=== PATIENT | female | born 1945 | race Caucasian/White ===

== ENCOUNTER 2018-09-14 18:57 | Inpatient (IN) ==
[2018-09-14] MEDS ORDERED: ONDANSETRON INJ 2 MG/ML 2 ML VIAL IV STA (19:11)
[2018-09-14] MEDS ORDERED: MoRPHine SULFATE 2 MG/ML CARP IV STA (19:11)
[2018-09-14] MEDS ORDERED: SODIUM CHLORIDE 0.9% 1000ML 1,000 ML IV SCH ×2 (19:15→20:15)
--- NOTE | 2018-09-14 19:24 | XRay Report ---
XR chest 1V portable CLINICAL HISTORY: weakness COMPARISON STUDY: No previous studies for comparison. FINDINGS: Slight blunting left lateral costophrenic angle. Potential minimal parenchymal infiltrate l eft midlung. Several old left mid hemithoracic rib fractures. Right lung is clear. No evidence pneumo thorax. IMPRESSION: 1. Minimal parenchymal infiltrate left midlung. 2. Trace blunting left lateral costophrenic angle. The above report was generated using voice recognition software. It may contain grammatical, syntax or spelling errors. Electronically signed by: Joey Nguyen M.D. 09/14/2018 7:23 PM
--- NOTE | 2018-09-14 19:47 | CT Scan Report ---
CT head/brain wo con CT DOSE: 537.48 mGy.cm HISTORY: Mental status change recent TIA symptoms TECHNIQUE: Multiaxial CT images of the head were performed without the use of intravenous contrast. A dose lowering technique was utilized adhering to the principles of ALARA. Comparison: None. Findings: The paranasal sinuses and mastoid air cells are clear. The calvarium and skull base are int act. The ventricles and sulci are within normal limits. There is no mass, hematoma, midline shift, or acute infarct. Impression: No acute intracranial abnormality. Mild age-related chronic small vessel change The above report was generated using voice recognition software. It may contain grammatical, syntax or spelling errors. Electronically signed by: Joey Nguyen M.D. 09/14/2018 7:45 PM
[2018-09-14 20:07] LABS: Hematocrit (blood only) 33.9 % (37-47); Hemoglobin 12.7 g/dL (12.0-16.0); Mean Corpuscular Hgb Conc 37.5 g/dL (32-36); Mean Corpuscular Volume 80.5 fL (80-100); Mean Platelet Volume 9.4 fL (7.4-10.4); Platelet Count 314 K/uL (130-400); RDW Coefficient of Variation 12.9 % (11.5-14.5); RDW Standard Deviation 37.8 fL (36.4-46.3); Red Blood Count 4.21 M/uL (4.2-5.4); White Blood Count 6.22 K/uL (4.8-10.8)
[2018-09-14 20:10] LABS: Alanine Aminotransferase 26 U/L (12-78); Albumin Level 3.4 gm/dl (3.4-5.0); Aspartate Aminotransferase 34 U/L (15-37); BUN Creatinine Ratio 17.6 (10-20); Blood Urea Nitrogen 22 mg/dl (7-18); Calcium 8.6 mg/dl (8.5-10.1); Carbon Dioxide 32 mmol/L (21-32); Chloride 76 mmol/L (98-107); Est GFR (African American) 49.6; Est GFR (Non-African American) 42.8; Glucose 119 mg/dl (70-99); Magnesium 2.3 mg/dl (1.8-2.4); Potassium 2.6 mmol/L (3.5-5.1); Sodium 117 mmol/L (136-145)
--- NOTE | 2018-09-14 20:10 | Emergency Department Note ---
Entered by Janette Diego acting as a scribe for History of Present Illness General Chief complaint: TIA Symptoms Stated complaint: POSSIBLE STROKE Time Seen by Provider: 09/14/18 19:03 Source: patient History of Present Illness Onset (ago): week(s) Location: abdomen (generalized ) Pain Consistency: + constant Associated symptoms: + nausea/vomiting (+nausea; -vomiting), + weakness (legs) and + other (+blurry vision; -numbness/tingling; -double vision) Treatments prior to arrival: other (supplements) The patient is a 73 white female w/ a PMHx of TIA and HTN who presents to the ED w/ CC of constant generalized abdominal pain. The patient states that she has not feeling well since her TIA one week ago. During the TIA, she had symptoms of slurred speech and facial droop. The patient reports of an upset stomach, weak legs, and feeling nauseous. The patient denies vomiting, headache, and numbness and tingling. The patient denies double vision but reports of blurry vision. The patient reports taking supplements for her symptoms. The patient also reports recent constipation and one bowel movement today. The patient denies alcohol and tobacco use. Home Medications Home Medications Medication Instructions Recorded Confirmed Type amlodipine 10 mg PO QAM 09/14/18 09/14/18 History aspirin [Aspirin Low Dose] 162 mg PO QAM 09/14/18 09/14/18 History atorvastatin 40 mg PO QAM 09/14/18 09/14/18 History clonidine HCl 0.2 mg PO BID 09/14/18 09/14/18 History ibuprofen 200 mg PO Q6H PRN 09/14/18 09/14/18 History potassium chloride 10 meq PO BID 09/14/18 09/14/18 History triamterene-hydrochlorothiazid 1 cap PO QAM 09/14/18 09/14/18 History Allergies Allergy/AdvReac Type Severity Reaction Status Date / Time No Known Allergies Allergy Unverified 09/14/18 19:26 Past Med/Surg History Medical History Hypertension (Chronic) TIA (transient ischemic attack) (Resolved) Social History Feels Safe at Home: Yes Smoking Status: Never smoker Review of Systems See HPI for pertinent positives & negatives. and A total of 10 systems reviewed and were otherwise negative Physical Exam Vital Signs Vital Signs - 24 hr 09/14/18 19:00 09/14/18 20:39 Temperature 36.6 C Temperature Source Oral Sepsis Recent Fever Within 48 Hours No Sepsis New/Unexplained Change in Mental Status No Sepsis Action Taken by Nursing No Action Required Pulse Rate 53 L Pulse Rate [Apical] 47 L Respiratory Rate 20 18 Blood Pressure 162/74 H Blood Pressure [Left Arm] 192/80 H Blood Pressure Mean 103 Blood Pressure Mean [Left Arm] 117 Blood Pressure Position [Left Arm] Sitting Pulse Oximetry 99 96 Oxygen Delivery Method Room Air Room Air GENERAL: Wearing glasses. Well appearing, well nourished, NAD, non-toxic. EYE EXAM: Normal conjunctiva. PERRL, no anisocoria and EOM's grossly intact w/o pain. OROPHARYNX: Moist mucus membranes. Grossly normal dentition. NECK: Supple, no nuchal rigidity, no adenopathy, non-tender. no signs of meningismus. LUNGS: Clear to auscultation. Normal chest wall mechanics. HEART: NSR, Systolic ejection murmur ABDOMEN: Minimal abdomen discomfort in the left lower abdomen to deep palpation, not peritonitic. Abdomen soft, normo-active bowel sounds, no masses, no rebound or guarding. BACK: No CVA TTP. SKIN: No rashes and no bruising. UPPER EXTREMITIES: Upper extremities are grossly normal. LOWER EXTREMITIES: No pitting edema. No calf pain. NEURO EXAM: A&O x3, cranial nerves II-XII grossly intact, normal speech, 5/5 strength throughout, no sensory deficits, good finger to nose, no pronator drift, moves all 4 extremities on command w/o issue. Course 1904: Past medical records reviewed. The patient was evaluated in room A3. A complete history and physical exam was performed. 2027: I checked on and updated the patient. She is agreeable to be further evaluated. 2034: I discussed the case with Dr. Pamela Araya who accepts the patient for further evaluation. Consultations Consultation #1: I discussed the case with Dr. Pamela Araya who accepts the patient for further evaluation. Time: 20:35 Administered Medications Sodium Chloride (Nss 1000ml) 1,000 mls @ 125 mls/hr IV .Q8H [place] Stop: 10/14/18 20:14 Last Admin: 09/14/18 21:21 Dose: Not Given Documented by: [id number] Potassium Chloride (K Mina / Wtr) 10 meq in 100 mls @ 100 mls/hr IV Q1H [place] Stop: 09/14/18 22:14 Last Admin: 09/14/18 21:33 Dose: 100 mls/hr Documented by: [id number] Infusion: 09/14/18 21:32 Dose: 100 mls/hr Documented by: [id number] Admin: 09/14/18 20:32 Dose: 100 mls/hr Documented by: [id number] Discontinued Medications Sodium Chloride (Nss 1000ml) 1,000 mls @ 999 mls/hr IV .Q1H1M [place] Stop: 09/14/18 20:15 Last Infusion: 09/14/18 21:18 Dose: 0 mls/hr Documented by: [id number] Admin: 09/14/18 19:24 Dose: 999 mls/hr Documented by: [id number] Morphine Sulfate (Morphine Sulfate) 2 mg IV NOW STA Stop: 09/14/18 19:12 Last Admin: 09/14/18 19:26 Dose: 2 mg Documented by: [id number] Ondansetron HCl (Zofran) 4 mg IV NOW STA Stop: 09/14/18 19:12 Last Admin: 09/14/18 19:25 Dose: 4 mg Documented by: [id number] Potassium Chloride (Klor-Con M20) 40 meq PO NOW STA Stop: 09/14/18 20:16 Last Admin: 09/14/18 20:31 Dose: 40 meq Documented by: [id number] Sodium Bicarbonate (Sodium Bicarbonate 8.4%) 50 meq IV NOW STA Stop: 09/14/18 20:15 Last Admin: 09/14/18 20:27 Dose: 50 meq Documented by: [id number] Medical Decision Making Medical Records Attestation: I reviewed the patient's medical records. Home Medications Current Medication List: was personally reviewed by me Laboratory Data Attestation: I reviewed the patient's lab results. Result diagrams: 09/14/18 19:15 09/14/18 19:15 Lab Results 09/14/18 09/14/18 09/14/18 Range/Units 19:15 19:15 19:15 WBC 6.22 (4.8-10.8) K/uL RBC 4.21 (4.2-5.4) M/uL Hgb 12.7 (12.0-16.0) g/dL Hct 33.9 L (37-47) % MCV 80.5 (80-100) fL MCH 30.2 (25-34) pg MCHC 37.5 H (32-36) g/dL RDW Std Deviation 37.8 (36.4-46.3) fL RDW Coeff of Pam 12.9 (11.5-14.5) % Plt Count 314 (130-400) K/uL MPV 9.4 (7.4-10.4) fL Neutrophils % (Manual) 41.9 % Lymphocytes % (Manual) 24.3 % Reactive Lymphs % (Man) 21.7 % Monocytes % (Manual) 7.8 % Eosinophils % (Manual) 4.3 % Neutrophils # (Manual) 2.61 (1.4-6.5) K/uL Total Absolute Neuts 2.61 (1.4-6.5) K/uL Lymphocytes # (Manual) 1.51 (1.2-3.4) K/uL Reactive Lymphs # 1.35 K/uL Total Abs Lymphocytes 2.86 (1.2-3.4) K/uL Monocytes # (Manual) 0.49 (0.11-0.59) K/uL Eosinophils # (Manual) 0.27 (0-0.5) K/uL RBC Morphology Unremarkable Sodium 117 L* (136-145) mmol/L Potassium 2.6 L (3.5-5.1) mmol/L Chloride 76 L (98-107) mmol/L Carbon Dioxide 32 (21-32) mmol/L Anion Gap 9.0 (3-11) BUN 22 H (7-18) mg/dl Creatinine 1.24 H (0.6-1.2) mg/dl Est Cr Clr Drug Dosing Not Reportable Est GFR ( Amer) 49.6 Est GFR (Non-Af Amer) 42.8 BUN/Creatinine Ratio 17.6 (10-20) Glucose 119 H (70-99) mg/dl POC Glucose (70-99) Osmolality 247 L (280-300) mOsm/kg Calcium 8.6 (8.5-10.1) mg/dl Magnesium 2.3 (1.8-2.4) mg/dl Total Bilirubin 0.4 (0.2-1) mg/dl AST 34 (15-37) U/L ALT 26 (12-78) U/L Alkaline Phosphatase 86 (45-117) U/L Troponin I 0.028 (0-0.045) ng/ml Total Protein 7.5 (6.4-8.2) gm/dl Albumin 3.4 (3.4-5.0) gm/dl Globulin 4.1 H (2.5-4.0) gm/dl Albumin/Globulin Ratio 0.8 L (0.9-2) TSH 5.710 H (0.300-4.500) uIu/ml Free T4 0.99 (0.8-1.6) ng/dl Urine Color Urine Appearance (Clear) Urine pH (4.5-7.5) Ur Specific [place] (1.000-1.030) Urine Protein (Negative) Urine Glucose (UA) (Negative) Urine Ketones (Negative) Urine Blood (Negative) Urine Nitrite (Negative) Urine Bilirubin (Negative) Urine Urobilinogen (Negative) Ur Leukocyte Esterase (Negative) Urine RBC (0-4) /hpf Urine WBC (0-5) /hpf Ur Epithelial Cells (0-5) /lpf Urine Bacteria (Negative) Hyaline Casts (0-5) /lpf Urine Osmolality (500-800) mOsm/kg 09/14/18 09/14/18 09/14/18 Range/Units 19:25 20:35 20:35 WBC (4.8-10.8) K/uL RBC (4.2-5.4) M/uL Hgb (12.0-16.0) g/dL Hct (37-47) % MCV (80-100) fL MCH (25-34) pg MCHC (32-36) g/dL RDW Std Deviation (36.4-46.3) fL RDW Coeff of Pam (11.5-14.5) % Plt Count (130-400) K/uL MPV (7.4-10.4) fL Neutrophils % (Manual) % Lymphocytes % (Manual) % Reactive Lymphs % (Man) % Monocytes % (Manual) % Eosinophils % (Manual) % Neutrophils # (Manual) (1.4-6.5) K/uL Total Absolute Neuts (1.4-6.5) K/uL Lymphocytes # (Manual) (1.2-3.4) K/uL Reactive Lymphs # K/uL Total Abs Lymphocytes (1.2-3.4) K/uL Monocytes # (Manual) (0.11-0.59) K/uL Eosinophils # (Manual) (0-0.5) K/uL RBC Morphology Sodium (136-145) mmol/L Potassium (3.5-5.1) mmol/L Chloride (98-107) mmol/L Carbon Dioxide (21-32) mmol/L Anion Gap (3-11) BUN (7-18) mg/dl Creatinine (0.6-1.2) mg/dl Est Cr Clr Drug Dosing Est GFR ( Amer) Est GFR (Non-Af Amer) BUN/Creatinine Ratio (10-20) Glucose (70-99) mg/dl POC Glucose 126 H (70-99) Osmolality (280-300) mOsm/kg Calcium (8.5-10.1) mg/dl Magnesium (1.8-2.4) mg/dl Total Bilirubin (0.2-1) mg/dl AST (15-37) U/L ALT (12-78) U/L Alkaline Phosphatase (45-117) U/L Troponin I (0-0.045) ng/ml Total Protein (6.4-8.2) gm/dl Albumin (3.4-5.0) gm/dl Globulin (2.5-4.0) gm/dl Albumin/Globulin Ratio (0.9-2) TSH (0.300-4.500) uIu/ml Free T4 (0.8-1.6) ng/dl Urine Color Yellow Urine Appearance Clear (Clear) Urine pH 5.5 (4.5-7.5) Ur Specific [place] 1.012 (1.000-1.030) Urine Protein 2+ H (Negative) Urine Glucose (UA) Negative (Negative) Urine Ketones Negative (Negative) Urine Blood Trace H (Negative) Urine Nitrite Negative (Negative) Urine Bilirubin Negative (Negative) Urine Urobilinogen Negative (Negative) Ur Leukocyte Esterase Trace H (Negative) Urine RBC 0-4 (0-4) /hpf Urine WBC 0-5 (0-5) /hpf Ur Epithelial Cells 10-20 H (0-5) /lpf Urine Bacteria Negative (Negative) Hyaline Casts 0-5 (0-5) /lpf Urine Osmolality 167 L (500-800) mOsm/kg Imaging Data Radiologist's Impression: Radiology results as stated below per my review and the radiologist's interpretation: XR chest 1V portable CLINICAL HISTORY: weakness COMPARISON STUDY: No previous studies for comparison. FINDINGS: Slight blunting left lateral costophrenic angle. Potential minimal parenchymal infiltrate left midlung. Several old left mid hemithoracic rib fractures. Right lung is clear. No evidence pneumothorax. IMPRESSION: 1. Minimal parenchymal infiltrate left midlung. 2. Trace blunting left lateral costophrenic angle. The above report was generated using voice recognition software. It may contain grammatical, syntax or spelling errors. Electronically signed by: Joey Nguyen M.D. 09/14/2018 7:[address] head/brain wo con CT DOSE: 537.48 mGy.cm HISTORY: Mental status change recent TIA symptoms TECHNIQUE: Multiaxial CT images of the head were performed without the use of intravenous contrast. A dose lowering technique was utilized adhering to the principles of ALARA. Comparison: None. Findings: The paranasal sinuses and mastoid air cells are clear. The calvarium and skull base are intact. The ventricles and sulci are within normal limits. There is no mass, hematoma, midline shift, or acute infarct. Impression: No acute intracranial abnormality. Mild age-related chronic small vessel change The above report was generated using voice recognition software. It may contain grammatical, syntax or spelling errors. Electronically signed by: Joey Nguyen M.D. 09/14/2018 7:45 PM ECG Data Attestation: I personally reviewed and interpreted this ECG as follows: Indication: abdominal pain Rate (beats per minute): 49 Rhythm: sinus bradycardia Findings: + other (normal axis; no ST changes) Blood Pressure Blood Pressure Findings: Elevated blood pressure Blood Pressure Disposition: further management by hospitalist [facility] The patient is a 73 white female w/ a PMHx of TIA and HTN who presents to the ED w/ CC of constant generalized abdominal pain. Differential diagnosis: Etiologies such as appendicitis, diverticulitis, PUD, biliary pathology, UTI, pancreatitis, obstruction, mesenteric ischemia, aortic pathology, infections, inflammatory bowel disease, renal colic, as well as others were entertained. Patient was seen and evaluated the bedside. The patient does relate that she thinks she had a recent "mini stroke." The patient states that she had some slurred speech and some facial droop last Saturday and that she was seen by paramedics but did not present to the hospital. The patient states that she currently just has some generalized abdominal discomfort. She states is worse in the left side. Patient denies any recent trauma. Patient does have nausea but without vomiting. The patient has no focal neuro deficits at this time no sensory deficits good [id number] and good strength. Per the patient's at the bedside she does not have any slurred speech. Patient has a normal white count and hemoglobin. The patient's platelet count is unremarkable. The patient does have significant concerns for hyponatremia which is likely the explanation of her abdominal discomfort. I did order a dose of IV bicarb to be given through the rest of her IV fluids given the concern for her acute hyponatremia and wanting to avoid any possible complications including seizures. The patient does take hydrochlorothiazide and the patient does have low TSH which may also be contributory. Patient was ordered additional IV fluids as well as medications to improve her potassium. Patient was admitted to the medicine service. Impression & Plan Hyponatremia, Hypokalemia, Abdominal pain Critical Care Time Critical Care Time: Yes Total Critical Care Time: 40 I have personally spent greater than 40 minutes of critical care time in direct management of this patient. This includes bedside care, interpretation of diagnostic studies, and testing, discussion with consultants, patient, and family members, and other require inpatient management activities. This 40 minutes is in excess of all separately billable procedures. Discharge Plan Visit Data Chief Complaint: TIA Symptoms Stated Complaint: POSSIBLE STROKE ED Provider: Farhad Núñez Discharge Problem: Hyponatremia, Hypokalemia, Abdominal pain Patient Disposition: Being Evaluated by Hospitalist Forms Stand Alone Forms: My [facility] [employer] Prescriptions Prescriptions: No Action atorvastatin 40 mg tablet 40 mg PO QAM RF: 0 clonidine HCl 0.2 mg tablet 0.2 mg PO BID RF: 0 amlodipine 10 mg tablet 10 mg PO QAM RF: 0 aspirin [Aspirin Low Dose] 81 mg Tablet,Delayed Release (Dr/Ec) 162 mg PO QAM RF: 0 triamterene-hydrochlorothiazid 37.5-25 mg capsule 1 cap PO QAM RF: 0 ibuprofen 200 mg Tablet 200 mg PO Q6H PRN (Reason: Pain) RF: 0 potassium chloride 10 mEq tablet,ER particles/crystals 10 meq PO BID RF: 0 Referrals Referrals: Hi Henderson MD [Primary Care Provider] - Discharge Problem: Abdominal pain Qualifiers: Abdominal location: generalized Qualified Code(s): R10.84 - Generalized abdominal pain The scribe's documentation has been prepared under my direction and personally reviewed by me in its entirety. I confirm that the note above accurately reflects all work, treatment, procedures, and medical decision making performed by me.
[2018-09-14 20:12] LABS: RBC Morphology Unremarkable
[2018-09-14 20:13] LABS: ALC (manual) 2.86 K/uL (1.2-3.4); Eosinophils # (manual) 0.27 K/uL (0-0.5); Eosinophils % (manual) 4.3 %; Lymphocytes # (manual) 1.51 K/uL (1.2-3.4); Lymphocytes % (manual) 24.3 %; Monocytes # (manual) 0.49 K/uL (0.11-0.59); Monocytes % (manual) 7.8 %; Neutrophils % (manual) 41.9 %; Reactive Lymphocytes # (manual) 1.35 K/uL
[2018-09-14] MEDS ORDERED: SODIUM BICARB 8.4% INJ 50 MEQ/50 ML SYR IV STA (20:14)
[2018-09-14] MEDS ORDERED: POTASSIUM CHLORIDE 20 MEQ TABCR PO STA ×3 (20:15→22:51)
[2018-09-14 20:19] LABS: Albumin Globulin Ratio 0.8 (0.9-2); Alkaline Phosphatase 86 U/L (45-117); Bilirubin,Total 0.4 mg/dl (0.2-1); Globulin 4.1 gm/dl (2.5-4.0); Total Protein 7.5 gm/dl (6.4-8.2); Troponin I 0.028 ng/ml (0-0.045)
[2018-09-14] MEDS: POTASSIUM CHLORIDE / WTR 10 MEQ/100 ML PLCT IV SCH ×2 (20:32→21:33)
[2018-09-14 20:35] LABS: T4 Free Thyroxine 0.99 ng/dl (0.8-1.6)
[2018-09-14 20:53] LABS: Appearance Urine Clear (Clear); Bilirubin Urine Negative (Negative); Color Urine Yellow; Glucose Urine UA Negative (Negative); Ketones Urine Negative (Negative); Leukocyte Esterase Urine Trace (Negative); Nitrite Urine Negative (Negative); Protein Urine 2+ (Negative); Specific Gravity Urine 1.012 (1.000-1.030); Urobilinogen Urine Negative (Negative); pH Urine 5.5 (4.5-7.5)
[2018-09-14 21:09] LABS: Hyaline Casts Urine 0-5 /lpf (0-5)
[2018-09-14 21:10] LABS: Bacteria Urine Negative (Negative); RBC Urine 0-4 /hpf (0-4); WBC Urine 0-5 /hpf (0-5)
[2018-09-14] MEDS ORDERED: ONDANSETRON INJ 2 MG/ML 2 ML VIAL IV PRN (22:13)
[2018-09-14] MEDS ORDERED: PHARMACIST DISCHARGE MED REC CONSULT PRN (22:13)
[2018-09-14] MEDS ORDERED: NITROGLYCERIN SL 0.4 MG/TAB TAB SL PRN (22:13)
[2018-09-14 22:27] LABS: BUN Creatinine Ratio 17.9 (10-20); Blood Urea Nitrogen 20 mg/dl (7-18); Calcium 8.2 mg/dl (8.5-10.1); Carbon Dioxide 31 mmol/L (21-32); Chloride 80 mmol/L (98-107); Est GFR (African American) 57.9; Glucose 138 mg/dl (70-99); Potassium 2.8 mmol/L (3.5-5.1); Sodium 121 mmol/L (136-145)
[2018-09-14] MEDS ORDERED: NITROGLYCERIN 2% OINTMENT 30GM TUBE EXT SCH (23:00)
--- NOTE | 2018-09-14 23:48 | History and Physical Report ---
DATE OF ADMISSION: 09/14/2018 CHIEF COMPLAINT: Not feeling well. HISTORY OF PRESENT ILLNESS: This is a 73-year-old female with past medical history significant for hypertension, hyperlipidemia, comes here because of not feeling well since last few days. Last Saturday she had a slurred speech for about half hour and got resolved and she did not feel like coming to the hospital. Since last 2-3 days, she is feeling generalized weakness, does not want to sleep, some nausea, abdominal discomfort but no vomiting, no diarrhea. She states she is somewhat constipated, but she had 1 loose bowel movement today. Appetite is poor since last 3-4 days. Denies any cough, no fever, no headaches, no blurred vision, no earache, no sore throat, no difficulty swallowing, no chest pain. Lives with her . Ambulates without any help. Denies any kidney problems or heart problems. Currently resting comfortably and alert and oriented.Vinay any recent changes in her medications. ALLERGIES: No known drug allergies. PAST MEDICAL HISTORY: As mentioned above. PAST SURGICAL HISTORY: Cholecystectomy, history of tubal . MEDICATIONS: The patient is on amlodipine 10 mg p.o. daily, aspirin 162 mg p.o. daily, atorvastatin 40 mg p.o. daily, clonidine 0.2 mg p.o. b.i.d., ibuprofen 200 mg p.o. q. 6 p.r.n., potassium chloride 10 mEq p.o. b.i.d., triamterene/hydrochlorothiazide 1 capsule p.o. a.m. FAMILY HISTORY: Significant for hypertension, four brothers, both her parents . SOCIAL HISTORY: Denies smoking, no alcohol. Lives with her . REVIEW OF SYMPTOMS: As per HPI. Rest of review of symptoms negative. PHYSICAL EXAMINATION: GENERAL: The patient is of moderate build, not in acute distress. VITAL SIGNS: Temperature 36.6, pulse 55, respiratory rate 18, blood pressure 192/80, oxygen 97% on room air. HEENT: No pallor, no icterus. Pupils equal, round, reactive to light. NECK: No JVD, no neck masses, no carotid bruits. CARDIOVASCULAR: S1, S2 heard, regular rate and rhythm, no murmur, no gallop. RESPIRATORY SYSTEM: Normal AP diameter. No accessory muscle use. No wheezing, no crackles. ABDOMEN: Soft, bowel sounds present. Mild abdominal diffuse discomfort. No guarding, no rigidity. No distention. CENTRAL NERVOUS SYSTEM: Cranial nerves II-XII grossly intact. Speech clear. Alert and oriented power 5/5 in all extremities,no pronator drift, coordination of movements normal,sensations and position sense intact. Nonfocal. EXTREMITIES: No edema, no erythema. LABORATORY DATA: WBC 6.2, hemoglobin 12.7, hematocrit 33.9, platelets 314. Sodium 117, potassium 2.6, chloride 76, bicarbonate 32, BUN 22, creatinine 1.2, serum glucose 119, serum osmolality 247, calcium 8.6, magnesium 2.3, total bilirubin 0.4, AST 34, ALT 26, alkaline phosphatase 86. Troponin-I 0.028, total protein 7.5, albumin 3.4. TSH 5.7, free T4 0.99. Urinalysis positive for protein +2, trace leukocyte esterase. Chest x-ray minimal parenchymal infiltrate, left mid lung. CT of the head, no acute intracranial abnormality, mild age-related chronic small vessel change. EKG: Sinus bradycardia, rate of 49, no acute ST changes seen. ASSESSMENT AND PLAN: This is a 73-year-old female who presents with generalized weakness, not feeling well and found to have significant hyponatremia, hypokalemia, questionable transient ischemic attack. 1. Hyponatremia. Serum osmolality is low at 247. Urinalysis pending. Random urine sodium pending. Etiology unclear. The patient is on diuretics triamterene/hydrochlorothiazide, but the patient says there is no recent change in medications. We will hold the diuretic, received 1 liter fluids, normal saline in the ER. We will check a BMP now and based on the results, further plan. Discussed with Nephrology. Close monitor on tele floor. If the sodium goes down, we will transfer to ICU and start her on hypertonic saline as per Nephrology recommendations. For now close monitor on tele. 2. Hypokalemia. Holding diuretics as above. Replacing potassium orally and recheck the labs. 3. Questionable transient ischemic attack. The patient had episode of slurred speech last Saturday for about half hour. The patient is already on aspirin and statin. We will follow fasting lipid profile. CT of the head is unremarkable. Currently, the patient is neurologically intact. We will get MRI scan of the head when patient is more stable, possibly tomorrow and also echocardiogram, carotid Doppler, PT, OT, speech evaluation, neuro consult. 4. Hypertension. Continue amlodipine, clonidine with holding parameters. Holding the triamterene/hydrochlorothiazide. Blood pressure somewhat on the higher side. If still running high, we will place on nitro paste and adjust her blood pressure medications. 5. Hyperlipidemia. Continue statin and follow the lipid profile. 6. Infiltrate on cxr patient has no cough and no fevers, no leukocytosis. Will monitor. 7. UA positive with trace leukocyte esterase asymptomatic. will follow cultures. 6. Deep vein thrombosis prophylaxis, SCDs for now. 7. Disposition: Closely monitor in tele floor. Level 1, full code as per discussion with the patient. PT, OT prior to discharge. Social Service to help her with discharge planning. ANTONIO
[2018-09-15] MEDS: ACETAMINOPHEN 325 MG TAB PO PRN (01:46)
[2018-09-15] MEDS ORDERED: NITROGLYCERIN 2% OINTMENT 30GM TUBE EXT SCH (02:00)
[2018-09-15 05:50] LABS: Basophils # (auto) 0.02 K/uL (0-0.2); Basophils % (auto) 0.4 %; Eosinophils # (auto) 0.23 K/uL (0-0.5); Hematocrit (blood only) 30.9 % (37-47); Hemoglobin 11.3 g/dL (12.0-16.0); Immature Granulocytes # (auto) 0.01 K/uL (0.00-0.02); Immature Granulocytes % (auto) 0.2 %; Lymphocytes % (auto) 36.8 %; Mean Corpuscular Hgb Conc 36.6 g/dL (32-36); Mean Corpuscular Volume 82.2 fL (80-100); Mean Platelet Volume 9.4 fL (7.4-10.4); Monocytes # (auto) 0.91 K/uL (0.11-0.59); Monocytes % (auto) 15.9 %; Neutrophils # (auto) 2.44 K/uL (1.4-6.5); Neutrophils % (auto) 42.7 %; Platelet Count 266 K/uL (130-400); RDW Coefficient of Variation 12.9 % (11.5-14.5); RDW Standard Deviation 39.2 fL (36.4-46.3); Red Blood Count 3.76 M/uL (4.2-5.4); White Blood Count 5.71 K/uL (4.8-10.8)
[2018-09-15 06:21] LABS: BUN Creatinine Ratio 16.9 (10-20); Calcium 8.2 mg/dl (8.5-10.1); Creatinine Clr Calc Pharmacy 46.6 ml/min; Est GFR (African American) 60.6; Est GFR (Non-African American) 52.3; Magnesium 2.2 mg/dl (1.8-2.4); Potassium 3.6 mmol/L (3.5-5.1)
[2018-09-15 06:32] LABS: Estimated Average Glucose 148 mg/dl
[2018-09-15] MEDS: DEXTROSE 5% 1,000 ML IV SCH ×2 (07:43→13:34)
[2018-09-15] MEDS: ASPIRIN 81 MG ECTAB PO SCH (08:06)
[2018-09-15] MEDS: ATORVASTATIN 40 MG TAB PO SCH (08:06)
[2018-09-15] MEDS: AMLODIPINE BESYLATE 5 MG TAB PO SCH (08:07)
[2018-09-15] MEDS ORDERED: cloNIDine HCl 0.1 MG TAB PO SCH (09:00)
[2018-09-15 10:22] LABS: BUN Creatinine Ratio 14.4 (10-20); Calcium 8.2 mg/dl (8.5-10.1); Creatinine Clr Calc Pharmacy 38.8 ml/min; Est GFR (African American) 49.1; Est GFR (Non-African American) 42.3; Potassium 3.8 mmol/L (3.5-5.1)
--- NOTE | 2018-09-15 10:22 | Nephrology Consultation ---
Date of Consultation September 15, 2018 Assessment & Plan (1) Hyponatremia: Patient with hypoosmolar hyponatremia likely due to hypovolemia. Sodium increase drop with the after 1 L of normal saline. Target rate of correction is 6 and 24 hours. Patient should be at 123 by end of today. Recommend D5 water at 200 mL/h. Monitor sodium q. 6 hourly. If patient continues to overcorrect we will start her on DDAVP. Continue holding hydrochlorothiazide as well. Treat nausea and any other GI symptoms which also triggers for ADH. (2) Hypokalemia: Patient with hypokalemia likely due to inadequate p.o. intake. Continue aggressive potassium chloride supplementation. Monitor potassium at least twice daily. Patient should stop hydrochlorothiazide completely going forward. History of Present Illness Reason for Consultation: Hyponatremia Requesting Physician: Maranda Mendoza MD Attending Physician: Lynsey Ge DO History of Present Illness This is a 73-year-old female with history of hypertension and hyperlipidemia who m I have been asked to evaluate for etiology and management of hyponatremia. She was admitted on 09/14/2018 with weakness found to have a sodium of 117. She received 1 L of normal saline and sodium was 126 this morning. She reports feeling unwell for the past couple of days. She had nausea for about a week no vomiting and no diarrhea. She tried to drink a lot of water. She takes hydrochlorthiazide amlodipine and triamterene for blood pressure. Her nausea has improved now. She denies any shortness of breath. No vomiting or diarrhea. No urinary symptoms. She is currently getting D5 water to slow the rate of correction. Allergies Allergy/AdvReac Type Severity Reaction Status Date / Time No Known Allergies Allergy Unverified 09/14/18 19:26 Home Medications Home Medications Medication Instructions Recorded Confirmed Type amlodipine 10 mg PO QAM 09/14/18 09/14/18 History aspirin [Aspirin Low Dose] 162 mg PO QAM 09/14/18 09/14/18 History atorvastatin 40 mg PO QAM 09/14/18 09/14/18 History clonidine HCl 0.2 mg PO BID 09/14/18 09/14/18 History ibuprofen 200 mg PO Q6H PRN 09/14/18 09/14/18 History potassium chloride 10 meq PO BID 09/14/18 09/14/18 History triamterene-hydrochlorothiazid 1 cap PO QAM 09/14/18 09/14/18 History Patient History Medical History Hypertension (Chronic) TIA (transient ischemic attack) (Resolved) Social History Beliefs That Will Affect Care: None Current Living Situation: Family Other Information That Helps Us Care for You: No Feels Safe at Home: Yes Safety Concerns: Feels Safe At This Time Smoking Status: Never smoker Hx Alcohol Use: No Hx Substance Use: No Review of Systems Review of Systems: All systems reviewed & are unremarkable except as noted in HPI & below Physical Exam Physical Exam: General exam: Appears comfortable, no acute distress HEENT: Pupils are equal and reactive to light Neck: No JVD, neck is supple trachea is midline Respiratory system: Clear breath sounds bilaterally. Gastrointestinal: Abdomen is soft, non distended, non tender, bowel sounds are present CVS: Regular rate and rhythm. No murmurs, rubs or gallops Musculoskeletal: No joint or muscle tenderness Extremities: Non tender, no edema, peripheral pulses are present Neuro: Oriented, no tremors, no focal neurological deficits Skin: No rashes Results & Data Vital Signs (Past 12 Hours) Vital Signs Temp Pulse Pulse Resp BP BP Pulse Ox 09/15/18 10:00 50 L 93/53 L 09/15/18 07:21 46 L 09/15/18 07:08 36.7 C 40 L 18 164/69 H 95 09/15/18 03:24 36.5 C 41 L 17 146/67 H 95 09/15/18 02:08 47 L 154/83 H 09/14/18 23:33 36.5 C 45 L 18 149/78 H 97 Laboratory Results General exam: Appears comfortable, no acute distress HEENT: Pupils are equal and reactive to light Neck: No JVD, neck is supple trachea is midline Respiratory system: Clear breath sounds bilaterally. Gastrointestinal: Abdomen is soft, non distended, non tender, bowel sounds are present CVS: Regular rate and rhythm. No murmurs, rubs or gallops Musculoskeletal: No joint or muscle tenderness Extremities: Non tender, no edema, peripheral pulses are present Neuro: Oriented, no tremors, no focal neurological deficits Skin: No rashes
[2018-09-15 11:33] LABS: BUN Creatinine Ratio 15.3 (10-20); Creatinine Clr Calc Pharmacy 39.4 ml/min; Est GFR (Non-African American) 43.2; Potassium 3.6 mmol/L (3.5-5.1)
--- NOTE | 2018-09-15 12:38 | Hospitalist Progress Note ---
Date of Service September 15, 2018 Assessment & Plan (1) Hyponatremia: Pt appears hypovolemic as she is orthostatic this am, however, she also has have several days of nausea which can also be a cause. Na corrected 9 points already, so she is getting free water to avoid overcorrection now. She is tolerating all of her breakfast and reports no nausea. It appears that her malaise is improved. Cont current management per Nephrology. Maxzide was held. (2) Hypokalemia: resolved (3) Abdominal pain: TTP in suprapubic region. UA is clear of infection. Will obtain a KUB to evaluate further. (4) Bradycardia: sinus bradycardia. Possibly 2/2 clonidine which was recently started one month ago. She states that she has been talking with her PCP about low heart r ate but has not seen a heart doctor. She reports that her HR dropped after starting the clonidine one month ago. Consult cardiology as her bradycardia is profound and has fallen overnight. Hold clonidine. No AV venu agents. (5) H/O TIA (transient ischemic attack) and stroke: Describes stroke like symptoms that resolved after 30 minutes one week ago. MRI, carotid US pending. TTE performed. She is on ASA 81mg daily. Neuro recommendations appreciated. Cont ASA 81 mg for now. PT/OT evaluations pending. (6) HTN (hypertension): Controlled, PCP recently added clonidine one month ago. This has caused bradycardia and fatigue. Would recommend holding this for now. Holding Maxzide because of hyponatremia. (7) DVT prophylaxis: Lovenox Full Code Dispo- cont telemetry monitoring Lynsey Ge DO [facility] Hospitalist Subjective 73 yo F admitted with symptomatic hyponatremia. She reports feeling better than on admission, and her Na has improved from 117 to 126 at this point. She reports nausea for the past 4-5 days, but cannot identify a cause for the nausea. She reports eating and drinking well. She did just start clonidine oral BID for BP control one month ago through her PCP at [facility]. She otherwise denies any medication changes or use of OTC medications. One week ago she called an ambulance to her home because of slurred speech and blurry vision. She was unable to walk and weak generally without a localized deficit to one side. She denied any headache, and states the symptoms lasted approx 30 minutes and then resolved spontaneously. The ambulance did not take her anywhere and she stayed home. She has been on ASA 81mg regularly on a long- term basis. Review of Systems Review of Systems: All systems reviewed & are unremarkable except as noted in HPI & below Physical Exam Physical Exam: CONSTITUTIONAL: obese, vitals as above, generally well- appearing EYES: EOMI bilaterally, PERRL, normal conjunctivae, no scleral icterus ENT: oropharynx clear, MMM RESPIRATORY: clear to auscultation bilaterally, no crackles, rales or wheezes, normal respiratory effort CARDIOVASCULAR: shauna rate, 3/6 ANAHY heard across precordium, 2+ pulses bilaterally, no peripheral edema GASTROINTESTINAL: soft, general TTP, worse in suprapubic area MUSCULOSKELETAL: strength 5/5 throughout, head is normocephalic and atraumatic SKIN: warm and dry NEUROLOGIC: patellar DTR 2+ bilat, BR reflex 2+ on R, could not elicit on L. PERRL, EOMI, no facial palsy, no dysarthria. CN 2-12 intact, no sensory deficit, normal cognition, normal speech, no tremor PSYCHIATRIC: alert cooperative and oriented to person, place and time. Results & Data Vital Signs (Past 12 Hours) Vital Signs Temp Pulse Pulse Resp BP BP Pulse Ox 09/15/18 11:17 36.3 C L 35 L 22 135/67 96 09/15/18 11:07 09/15/18 10:19 35 L 120/57 L 09/15/18 10:00 50 L 93/53 L 09/15/18 07:21 46 L 09/15/18 07:08 36.7 C 40 L 18 164/69 H 95 09/15/18 03:24 36.5 C 41 L 17 146/67 H 95 09/15/18 02:08 47 L 154/83 H Pulse Ox 09/15/18 11:17 09/15/18 11:07 98 09/15/18 10:19 09/15/18 10:00 09/15/18 07:21 09/15/18 07:08 09/15/18 03:24 09/15/18 02:08 Laboratory Results Short CBC 09/14/18 09/15/18 Range/Units 19:15 05:23 WBC 6.22 5.71 (4.8-10.8) K/uL Hgb 12.7 11.3 L (12.0-16.0) g/dL Hct 33.9 L 30.9 L (37-47) % Plt Count 314 266 (130-400) K/uL BMP 09/14/18 09/14/18 09/15/18 19:15 21:45 05:23 Sodium 117 L* 121 L 126 L Potassium 2.6 L 2.8 L 3.6 D Chloride 76 L 80 L 87 L Carbon Dioxide 32 31 33 H BUN 22 H 20 H 18 Creatinine 1.24 H 1.09 1.05 Glucose 119 H 138 H 99 Calcium 8.6 8.2 L 8.2 L 09/15/18 09/15/18 09:54 11:01 Sodium 126 L 125 L Potassium 3.8 3.6 Chloride 87 L 87 L Carbon Dioxide 32 32 BUN 18 19 H Creatinine 1.25 H 1.23 H Glucose 255 H 211 H Calcium 8.2 L 8.0 L Cardiac Enzymes 09/14/18 Range/Units 19:15 Troponin I 0.028 (0-0.045) ng/ml Liver Function 09/14/18 Range/Units 19:15 Total Bilirubin 0.4 (0.2-1) mg/dl AST 34 (15-37) U/L ALT 26 (12-78) U/L Alkaline Phosphatase 86 (45-117) U/L Albumin 3.4 (3.4-5.0) gm/dl Urine 09/14/18 Range/Units 20:35 Urine Color Yellow Urine Appearance Clear (Clear) Urine pH 5.5 (4.5-7.5) Ur Specific [place] 1.012 (1.000-1.030) Urine Protein 2+ H (Negative) Urine Glucose (UA) Negative (Negative) Medications Administered Current Inpatient Medications Acetaminophen (Tylenol) 650 mg PO Q4H PRN PRN Reason: Pain or Fever Stop: 10/14/18 22:12 Last Admin: 09/15/18 01:46 Dose: 650 mg Documented by: Amlodipine Besylate (Norvasc) 10 mg PO [facility] Stop: 10/15/18 08:59 Last Admin: 09/15/18 08:07 Dose: 10 mg Documented by: Aspirin (Ecotrin Ectab) 162 mg PO [facility] Stop: 10/15/18 08:59 Last Admin: 09/15/18 08:06 Dose: 162 mg Documented by: Atorvastatin Calcium (Lipitor) 40 mg PO QAM [facility] Stop: 10/15/18 08:59 Last Admin: 09/15/18 08:06 Dose: 40 mg Documented by: Clonidine HCl (Catapres) 0.2 mg PO BID [facility] Stop: 10/15/18 08:59 Last Admin: 09/15/18 08:06 Dose: 0.2 mg Documented by: Dextrose (D5w) 1,000 mls @ 250 mls/hr IV .Q4H [place] Stop: 10/15/18 07:14 Last Infusion: 09/15/18 11:24 Dose: 250 mls/hr Documented by: Miscellaneous Information (Pharmacist Discharge Med Rec Consult) 1 ea N/A UD PRN PRN Reason: Consult Stop: 10/14/18 22:12 Nitroglycerin (Nitrostat) 0.4 mg SL UD PRN PRN Reason: Chest Pain Stop: 10/14/18 22:12 Ondansetron HCl (Zofran) 4 mg IV Q6H PRN PRN Reason: Nausea Stop: 10/14/18 22:12 (1) Abdominal pain Abdominal location: generalized Qualified Code(s): R10.84 - Generalized abdominal pain
[2018-09-15 13:41] LABS: BUN Creatinine Ratio 14.5 (10-20); Calcium 7.9 mg/dl (8.5-10.1); Creatinine Clr Calc Pharmacy 33.4 ml/min; Est GFR (Non-African American) 35.4
--- NOTE | 2018-09-15 13:52 | Neurology Consultation ---
Date of Consultation September 15, 2018 Assessment & Plan (1) H/O TIA (transient ischemic attack) and stroke: 1. CT head - no acute findings 2. MRI brain- PENDING 3. TTE- EF 65-70% no ASD 4. sodium on admission 117 potassium 2.6- currently correcting 5. optimize HTN, HLD, DM LDL <70 6. PT/OT speech for discharge needs. (2) Hyponatremia: (3) Hypokalemia: Supervising Physician Co-Signing Physician Notes I have seen and discussed above patient with Dr Rj Price. Patient was seen and examined in radiology this afternoon after her MRI brain. She reports feeling better today. States 1 week ago while in [place] she had intermittent dysarthria and facial droop which resolved that Saturday. She had no reoccurrence of symptoms. She is on ASA at home. Denies history of Stroke or TIA. On examine patient is awake and oriented. Speech is clear although has some difficulty saying "[employer]". Face is symmetric. tongue midline. No drift in upper or lower extremities. EOMI. VF full to confrontation. No clonus. Toes flexor. Negative vicente. MRI brain w/wo reviewed. My impression is there is enhancement and diffusion restriction in the right external capsule consistent with a subacute infarct. A/p: A 73 year old woman with Hx of HTN and HLD with recent dysarthria and left facial droop secondary to subacute right subcortical ischemic stroke which appears small vessel in etiology. She was on ASA 81 mg daily prior to admission. - Recommend dual antiplatlet for 21-days, ASA 81 mg and PLavix 75 mg daily for 21-days then Plavix 75 mg daily - Agree with Lipitor 40 mg daily - TTE completed and Negative for cardiac source of embolism - Carotid US completed and shows considerable atherosclerosis - Recommend CTA head and neck for further evaluation - HA1c 6.8 - Blood pressures appear to be labile, Recommend SBP<140 mm Hg, DBP<90 - Continue telemetry - PT/OT/SS History of Present Illness Reason for Consultation: TIA? Requesting Physician: Lynsey Ge DO Attending Physician: Lynsey Ge, History of Present Illness Bety is a 73 year old female with PMH HTN, hyperlipidemia, was seen in the ED for not feeling well Last Saturday she had a slurred speech for about half hour and got resolved and she did not feel like coming to the hospital. Since last 2-3 days, she is feeling generalized weakness, does not want to sleep, some nausea, abdominal discomfort but no vomiting, no diarrhea. She states she is somewhat constipated, but she had 1 loose bowel movement today. Appetite is poor since last 3-4 days. She states since coming to the spital she does feel better no current nausea. denies current CP, SOB, abdominal pain, one sided weakness,numbness tingling, N,V, slurred speech, swallowing issues. Allergies Allergy/AdvReac Type Severity Reaction Status Date / Time No Known Allergies Allergy Unverified 09/14/18 19:26 Home Medications Home Medications Medication Instructions Recorded Confirmed Type amlodipine 10 mg PO QAM 09/14/18 09/14/18 History aspirin [Aspirin Low Dose] 162 mg PO QAM 09/14/18 09/14/18 History atorvastatin 40 mg PO QAM 09/14/18 09/14/18 History clonidine HCl 0.2 mg PO BID 09/14/18 09/14/18 History ibuprofen 200 mg PO Q6H PRN 09/14/18 09/14/18 History potassium chloride 10 meq PO BID 09/14/18 09/14/18 History triamterene-hydrochlorothiazid 1 cap PO QAM 09/14/18 09/14/18 History Patient History Medical History Hypertension (Chronic) TIA (transient ischemic attack) (Resolved) Social History Beliefs That Will Affect Care: None Current Living Situation: Family Other Information That Helps Us Care for You: No Feels Safe at Home: Yes Safety Concerns: Feels Safe At This Time Smoking Status: Never smoker Hx Alcohol Use: No Hx Substance Use: No Physical Exam Physical Exam: Physical Exam: Constitutional: appearance over nourished, healthy Ears, Nose, Mouth and Throat: mucous membranes moist, no injection and skin normal, eyes normal Cardiovascular: normal S-1 and S-2 and regular rate and rhythm Respiratory: clear to auscultation (CTA) and no rales, rhonchi or wheeze Musculoskeletal: no peripheral edema and good distal pulses Skin: no stigmata of neurocutaneous disease noted and normal and intact Eyes: extraocular muscles intact (EOMI) and pupils equal, round and reactive to light (PERRL) NEUROLOGIC EXAMINATION: Mental status: Alert and interactive Oriented to person Speech fluent with no evidence of aphasia Cranial Nerves smile eye brow raise symmetric Reflexes: Deep tendon reflexes were symmetrical and graded 2/5. Sensory: no deficit to light cool touch Gait/Stance: Posture normal lying in bed able to reposition self Motor: Negative for pronator drift of out stretched arms with eyes closed. Strength: biceps triceps hand security and compliance analyst 5/5 bilaterally, hip flex patellar flex ext 5/5 Results & Data Vital Signs (Past 12 Hours) Vital Signs Temp Pulse Pulse Resp BP BP Pulse Ox 09/15/18 11:17 36.3 C L 35 L 22 135/67 96 09/15/18 11:07 09/15/18 10:19 35 L 120/57 L 09/15/18 10:00 50 L 93/53 L 09/15/18 07:21 46 L 09/15/18 07:08 36.7 C 40 L 18 164/69 H 95 09/15/18 03:24 36.5 C 41 L 17 146/67 H 95 09/15/18 02:08 47 L 154/83 H Pulse Ox 09/15/18 11:17 09/15/18 11:07 98 09/15/18 10:19 09/15/18 10:00 09/15/18 07:21 09/15/18 07:08 09/15/18 03:24 09/15/18 02:08 Laboratory Results Abnormal lab results 09/14/18 09/14/18 09/14/18 Range/Units 19:15 19:15 19:15 RBC (4.2-5.4) M/uL Hgb (12.0-16.0) g/dL Hct 33.9 L (37-47) % MCHC 37.5 H (32-36) g/dL [place] # (Auto) (0.11-0.59) K/uL Sodium 117 L* (136-145) mmol/L Potassium 2.6 L (3.5-5.1) mmol/L Chloride 76 L (98-107) mmol/L Carbon Dioxide (21-32) mmol/L BUN 22 H (7-18) mg/dl Creatinine 1.24 H (0.6-1.2) mg/dl Glucose 119 H (70-99) mg/dl POC Glucose (70-99) Hemoglobin A1c (4.5-5.6) % Osmolality 247 L (280-300) mOsm/kg Calcium (8.5-10.1) mg/dl Globulin 4.1 H (2.5-4.0) gm/dl Albumin/Globulin Ratio 0.8 L (0.9-2) Cholesterol (0-200) mg/dl TSH 5.710 H (0.300-4.500) uIu/ml Urine Protein (Negative) Urine Blood (Negative) Ur Leukocyte Esterase (Negative) Ur Epithelial Cells (0-5) /lpf Urine Osmolality (500-800) mOsm/kg 09/14/18 09/14/18 09/14/18 Range/Units 19:25 20:35 20:35 RBC (4.2-5.4) M/uL Hgb (12.0-16.0) g/dL Hct (37-47) % MCHC (32-36) g/dL [place] # (Auto) (0.11-0.59) K/uL Sodium (136-145) mmol/L Potassium (3.5-5.1) mmol/L Chloride (98-107) mmol/L Carbon Dioxide (21-32) mmol/L BUN (7-18) mg/dl Creatinine (0.6-1.2) mg/dl Glucose (70-99) mg/dl POC Glucose 126 H (70-99) Hemoglobin A1c (4.5-5.6) % Osmolality (280-300) mOsm/kg Calcium (8.5-10.1) mg/dl Globulin (2.5-4.0) gm/dl Albumin/Globulin Ratio (0.9-2) Cholesterol (0-200) mg/dl TSH (0.300-4.500) uIu/ml Urine Protein 2+ H (Negative) Urine Blood Trace H (Negative) Ur Leukocyte Esterase Trace H (Negative) Ur Epithelial Cells 10-20 H (0-5) /lpf Urine Osmolality 167 L (500-800) mOsm/kg 09/14/18 09/15/18 09/15/18 Range/Units 21:45 01:35 05:23 RBC (4.2-5.4) M/uL Hgb (12.0-16.0) g/dL Hct (37-47) % MCHC (32-36) g/dL [place] # (Auto) (0.11-0.59) K/uL Sodium 121 L (136-145) mmol/L Potassium 2.8 L (3.5-5.1) mmol/L Chloride 80 L (98-107) mmol/L Carbon Dioxide (21-32) mmol/L BUN 20 H (7-18) mg/dl Creatinine (0.6-1.2) mg/dl Glucose 138 H (70-99) mg/dl POC Glucose (70-99) Hemoglobin A1c 6.8 H (4.5-5.6) % Osmolality (280-300) mOsm/kg Calcium 8.2 L (8.5-10.1) mg/dl Globulin (2.5-4.0) gm/dl Albumin/Globulin Ratio (0.9-2) Cholesterol (0-200) mg/dl TSH (0.300-4.500) uIu/ml Urine Protein (Negative) Urine Blood (Negative) Ur Leukocyte Esterase (Negative) Ur Epithelial Cells (0-5) /lpf Urine Osmolality 124 L (500-800) mOsm/kg 09/15/18 09/15/18 09/15/18 Range/Units 05:23 05:23 09:54 RBC 3.76 L (4.2-5.4) M/uL Hgb 11.3 L (12.0-16.0) g/dL Hct 30.9 L (37-47) % MCHC 36.6 H (32-36) g/dL [place] # (Auto) 0.91 H (0.11-0.59) K/uL Sodium 126 L 126 L (136-145) mmol/L Potassium (3.5-5.1) mmol/L Chloride 87 L 87 L (98-107) mmol/L Carbon Dioxide 33 H (21-32) mmol/L BUN (7-18) mg/dl Creatinine 1.25 H (0.6-1.2) mg/dl Glucose 255 H (70-99) mg/dl POC Glucose (70-99) Hemoglobin A1c (4.5-5.6) % Osmolality (280-300) mOsm/kg Calcium 8.2 L 8.2 L (8.5-10.1) mg/dl Globulin (2.5-4.0) gm/dl Albumin/Globulin Ratio (0.9-2) Cholesterol 242 H (0-200) mg/dl TSH (0.300-4.500) uIu/ml Urine Protein (Negative) Urine Blood (Negative) Ur Leukocyte Esterase (Negative) Ur Epithelial Cells (0-5) /lpf Urine Osmolality (500-800) mOsm/kg 09/15/18 09/15/18 Range/Units 11:01 13:09 RBC (4.2-5.4) M/uL Hgb (12.0-16.0) g/dL Hct (37-47) % MCHC (32-36) g/dL [place] # (Auto) (0.11-0.59) K/uL Sodium 125 L 123 L (136-145) mmol/L Potassium (3.5-5.1) mmol/L Chloride 87 L 85 L (98-107) mmol/L Carbon Dioxide (21-32) mmol/L BUN 19 H 21 H (7-18) mg/dl Creatinine 1.23 H 1.45 H (0.6-1.2) mg/dl Glucose 211 H 216 H (70-99) mg/dl POC Glucose (70-99) Hemoglobin A1c (4.5-5.6) % Osmolality (280-300) mOsm/kg Calcium 8.0 L 7.9 L (8.5-10.1) mg/dl Globulin (2.5-4.0) gm/dl Albumin/Globulin Ratio (0.9-2) Cholesterol (0-200) mg/dl TSH (0.300-4.500) uIu/ml Urine Protein (Negative) Urine Blood (Negative) Ur Leukocyte Esterase (Negative) Ur Epithelial Cells (0-5) /lpf Urine Osmolality (500-800) mOsm/kg Diagnostic Findings CT head-No acute intracranial abnormality. Mild age-related chronic small vessel change CXR-Minimal parenchymal infiltrate left midlung. Trace blunting left lateral costophrenic angle.
[2018-09-15] MEDS ORDERED: GADOBUTROL 65ML VIAL IV PRN (14:33)
--- NOTE | 2018-09-15 14:41 | Magnetic Resonance Report ---
MR brain wo/w con CLINICAL HISTORY: tia mental status change COMPARISON STUDY: No previous studies for comparison. TECHNIQUE: Utilizing a 1.5 Zeny magnet and dedicated coil, multiplanar, multiecho imaging of the br ain was performed pre and postcontrast administration. IV administration of 8 mL of Gadavist contras t was uneventful. FINDINGS: Diffusion images demonstrate low-level increase in signal of the right paraventricular jessica on involving the right external capsule. No additional foci of increased signal are identified. These foci of increased signal are identified on the T2 images and show evidence for postcontrast enh ancement. This suggests a subacute right periventricular infarct. There are moderate chronic small vessel changes the periventricular and deep white matter regions. Ve ntricular system is midline. No additional foci of postcontrast enhancement are identified. IMPRESSION: 1. Enhancing subacute infarct right external capsule and right periventricular region. 2. Given the degree of enhancement as well as additional signal characteristics this suggests a subac sharon infarct. 3. Moderate chronic small vessel change of aging The above report was generated using voice recognition software. It may contain grammatical, syntax or spelling errors. Electronically signed by: Joey Nguyen M.D. 09/15/2018 2:39 PM
--- NOTE | 2018-09-15 15:02 | XRay Report ---
XR KUB/Abdomen 1 view CLINICAL HISTORY: abdominal pain COMPARISON STUDY: No previous studies for comparison. FINDINGS: There is scattered stool within the colon. There is no pathologic bowel dilatation. There a re surgical clips within the right upper quadrant consistent with a prior cholecystectomy. IMPRESSION: No evidence of pathologic bowel dilatation. Electronically signed by: Francois Grigsby M.D. 09/15/2018 3:01 PM
--- NOTE | 2018-09-15 15:06 | Ultrasound Report ---
US carotid doppler BI HISTORY: Mental status change tia COMPARISON: None. TECHNIQUE: Real-time, grayscale, and color Doppler sonography of the carotid arteries was performed. Imaging reviewed in the transverse and longitudinal planes. All measurements were calculated based on NASCET criteria. FINDINGS: Antegrade flow is seen in the bilateral vertebral arteries. The brachial pressures are hemodynamically similar. Considerable plaque formation bilaterally The peak systolic velocity within the right ICA is 51. The right systolic ratio is 0.8. The peak systolic velocity within the left ICA is 56. The left systolic ratio is 2.8. IMPRESSION: No hemodynamically significant stenosis seen within the carotid arteries. Considerable plaque formati on bilaterally The above report was generated using voice recognition software. It may contain grammatical, syntax or spelling errors. Electronically signed by: Joey Nguyen M.D. 09/15/2018 3:05 PM
[2018-09-15 15:33] LABS: Partial Thromboplastin Time 27.9 Seconds (21.0-31.0); Prothrombin Time 10.3 Seconds (9.0-12.0)
[2018-09-15 15:36] LABS: Potassium 3.8 mmol/L (3.5-5.1)
--- NOTE | 2018-09-15 15:59 | Cardiology Consultation ---
Date of Consultation September 15, 2018 Assessment & Plan (1) Bradycardia: (2) HTN (hypertension): (3) Acute CVA (cerebrovascular accident): (4) Hyponatremia: (5) Hypokalemia: Marked sinus bradycardia noted on telemetry. Patient essentially asymptomatic with adequate blood pressure at this time. Bradycardia may be related to recent titration of clonidine in addition to significant electrolyte derangement at this time. Agree with discontinuation of clonidine. Monitor for rebound hyper tension. Avoid AV venu blocking agents. No indication for transvenous pacemaker at this time. If patient experiences an episode of symptomatic bradycardia with hypotension, recommend 1 mg of IV atropine. Continue to monitor telemetry during hospitalization. In regard to patient's subacute cerebrovascular accident, agree with high intensity statin therapy. Dual antiplatelet therapy as per direction of neurology. Carotid duplex demonstrates moderate plaque without significant stenosis. CTA of the neck pending. Management of electrolyte derangement as per nephrology. History of Present Illness Reason for Consultation: Bradycardia Requesting Physician: Dr. Ge Attending Physician: Lynsey Ge, DO History of Present Illness Patient seen and examined at the bedside. Admitted with generalized feeling of unwellness, hypokalemia, hyponatremia, dehydration, possible TIA. Describes episode of slurred speech and facial asymmetry approximately 1 week ago. Over the past 7 days she has experienced poor appetite with associated nausea. Denies lightheadedness, dizziness, syncope, or near syncope. MRI of the brain today confirms presence of subacute infarct of the right external capsule and right periventricular region. Significant electrolyte imbalance noted on admission including hyponatremia and hypokalemia. Nephrology consultation obtained with recommendations for IV hydration. Patient felt to be hypovolemic due to poor p.o. intake in the setting of poor appetite and nausea post CVA per Reports being evaluated by her PCP on September 02. During that visit her clonidine was increased to 0.2 mg twice daily. Over the past 2 weeks she has noted low pulse rates in the 40s. Reports her pulse rate as low as 37 at home. Denies any associated lightheadedness, dizziness, syncope, or near syncope. Telemetry demonstrates sinus bradycardia with the lowest heart rate of 35 bpm while at rest. No symptomatic hypotension. She received her dose of 0.2 mg clonidine at this a.m. Takes no other AV venu blocking agents. Hypothyroidism noted on admission with a TSH of 5.7 however free T4 within normal limits. Echocardiogram demonstrates evidence of hypertensive heart disease, preserved LV systolic function, no evidence of intracardiac shunting. Allergies Allergy/AdvReac Type Severity Reaction Status Date / Time No Known Allergies Allergy Unverified 09/14/18 19:26 Home Medications Home Medications Medication Instructions Recorded Confirmed Type amlodipine 10 mg PO QAM 09/14/18 09/14/18 History aspirin [Aspirin Low Dose] 162 mg PO QAM 09/14/18 09/14/18 History atorvastatin 40 mg PO QAM 09/14/18 09/14/18 History clonidine HCl 0.2 mg PO BID 09/14/18 09/14/18 History ibuprofen 200 mg PO Q6H PRN 09/14/18 09/14/18 History potassium chloride 10 meq PO BID 09/14/18 09/14/18 History triamterene-hydrochlorothiazid 1 cap PO QAM 09/14/18 09/14/18 History Patient History Medical History Hypertension (Chronic) TIA (transient ischemic attack) (Resolved) Social History Communication Ability: Effective Beliefs That Will Affect Care: None marital status: Current Living Situation: Family Other Information That Helps Us Care for You: No Feels Safe at Home: Yes Safety Concerns: Feels Safe At This Time Smoking Status: Never smoker Hx Alcohol Use: No Hx Substance Use: No Review of Systems Review of Systems: All systems reviewed & are unremarkable except as noted in HPI & below Physical Exam Physical Exam: General: NAD, AAO x3, well nourished. HEENT: Normocephalic. Atraumatic. Conjunctiva pink, no scleral icterus. Neck: No carotid bruits, the carotid upstrokes are brisk. No JVD. No HJR Heart: Regular normal S-1 and S-2 no S-3 or S-4 gallop. 2/6 low pitched mid peaking systolic ejection murmur heard best at the right second intercostal space without radiation. PMI is not displaced. No RV heave. Lungs: Clear bilateral without rales , rhonchi, or wheeze. Abdomen: Normal bowel sounds. Soft. Nontender. No masses or organomegaly. No abdominal bruits. Extremities: No clubbing, cyanosis, or edema. Pulses: radial=2/4, Dorsalis pedis =2/4, posterior tibial=2/4. Neuro: Cranial nerves grossly intact. No focal motor deficit. Results & Data Vital Signs (Past 12 Hours) Vital Signs Temp Pulse Pulse Resp BP BP Pulse Ox 09/15/18 15:40 36.6 C 40 L 17 137/72 96 09/15/18 15:28 44 L 09/15/18 11:17 36.3 C L 35 L 22 135/67 96 09/15/18 11:07 09/15/18 10:19 35 L 120/57 L 09/15/18 10:00 50 L 93/53 L 09/15/18 07:21 46 L 09/15/18 07:08 36.7 C 40 L 18 164/69 H 95 Pulse Ox 09/15/18 15:40 09/15/18 15:28 09/15/18 11:17 09/15/18 11:07 98 09/15/18 10:19 09/15/18 10:00 09/15/18 07:21 09/15/18 07:08 (1) HTN (hypertension) Hypertension type: essential hypertension Qualified Code(s): I10 - Essential (primary) hypertension
[2018-09-15] MEDS ORDERED: CLOPIDOGREL BISULFATE 75 MG TAB PO ONE (16:59)
[2018-09-15 17:29] LABS: BUN Creatinine Ratio 11.7 (10-20); Calcium 8.3 mg/dl (8.5-10.1); Creatinine Clr Calc Pharmacy 26.5 ml/min; Est GFR (African American) 30.6; Est GFR (Non-African American) 26.4
[2018-09-15] MEDS: ENOXAPARIN INJ 40 MG/0.4 ML SYR SQ SCH (19:51)
[2018-09-15] MEDS: POLYETHYLENE (MIRALAX) 17 GM PACK PO PRN (21:36)
[2018-09-15 23:45] LABS: BUN Creatinine Ratio 18.3 (10-20); Calcium 7.9 mg/dl (8.5-10.1); Creatinine Clr Calc Pharmacy 33.3 ml/min; Est GFR (African American) 40.3; Est GFR (Non-African American) 34.8; Potassium 3.5 mmol/L (3.5-5.1)
[2018-09-16] MEDS: ACETAMINOPHEN 325 MG TAB PO PRN (00:17)
[2018-09-16 07:20] LABS: Basophils # (auto) 0.02 K/uL (0-0.2); Basophils % (auto) 0.3 %; Eosinophils # (auto) 0.41 K/uL (0-0.5); Eosinophils % (auto) 6.4 %; Hematocrit (blood only) 31.9 % (37-47); Hemoglobin 11.4 g/dL (12.0-16.0); Immature Granulocytes # (auto) 0.02 K/uL (0.00-0.02); Immature Granulocytes % (auto) 0.3 %; Lymphocytes # (auto) 2.27 K/uL (1.2-3.4); Lymphocytes % (auto) 35.6 %; Mean Corpuscular Hgb Conc 35.7 g/dL (32-36); Mean Corpuscular Volume 83.5 fL (80-100); Mean Platelet Volume 9.8 fL (7.4-10.4); Monocytes # (auto) 0.97 K/uL (0.11-0.59); Monocytes % (auto) 15.2 %; Neutrophils # (auto) 2.69 K/uL (1.4-6.5); Neutrophils % (auto) 42.2 %; Platelet Count 264 K/uL (130-400); RDW Coefficient of Variation 13.5 % (11.5-14.5); RDW Standard Deviation 40.9 fL (36.4-46.3); Red Blood Count 3.82 M/uL (4.2-5.4); White Blood Count 6.38 K/uL (4.8-10.8)
[2018-09-16 07:53] LABS: BUN Creatinine Ratio 19.8 (10-20); Calcium 8.1 mg/dl (8.5-10.1); Creatinine Clr Calc Pharmacy 39.6 ml/min; Est GFR (African American) 49.6; Est GFR (Non-African American) 42.8; Potassium 3.3 mmol/L (3.5-5.1)
[2018-09-16] MEDS ORDERED: POTASSIUM CHLORIDE 20 MEQ TABCR PO STA (08:14)
[2018-09-16] MEDS: ASPIRIN 81 MG ECTAB PO SCH (09:19)
[2018-09-16] MEDS: AMLODIPINE BESYLATE 5 MG TAB PO SCH (09:20)
[2018-09-16] MEDS: ATORVASTATIN 40 MG TAB PO SCH (09:20)
[2018-09-16] MEDS: CLOPIDOGREL BISULFATE 75 MG TAB PO SCH (09:21)
--- NOTE | 2018-09-16 10:30 | XRay Report ---
XR chest 2V routine CLINICAL HISTORY: PA/lateral to ID the LLL infiltrate better COMPARISON STUDY: 09/14/2018 FINDINGS: No significant cardiac enlargement. Small parenchymal infiltrate left mid lung has shown ne ar complete resolution. Small left pleural effusion. Degenerative changes thoracic spine. IMPRESSION: 1. Improving small parenchymal infiltrate left midlung. 2. Interval development of a small left effusion. The above report was generated using voice recognition software. It may contain grammatical, syntax or spelling errors. Electronically signed by: Joey Nguyen M.D. 09/16/2018 10:29 AM
--- NOTE | 2018-09-16 13:06 | Hospitalist Progress Note ---
Date of Service September 16, 2018 Assessment & Plan (1) H/O TIA (transient ischemic attack) and stroke: Subacute stroke last week. No residual neuro deficits. Cont DAPT as instructed per Neurology. Cont statin. F/u as outpatient with Neurology. (2) Hyponatremia: Improved to 123 this am. Cont holding Maxzide. Eat and drink to thirst. Appreciate Nephrology recommendations. (3) Hypokalemia: replace and repeat in am . (4) Abdominal pain: KUB normal yesterday, abdominal pain is resolved. (5) Bradycardia: stable off clonidine and now closer to the 50s which is her baseline. Cont to avoid clonidine. No AV venu blocking agents. (6) HTN (hypertension): Slightly elevated to 155 systolic off the clonidine and Maxzide. Plan to restart Maxzide soon, once Controlled, PCP recently added clonidine one month ago. This has caused bradycardia and fatigue. Would recommend discontinuing this for now. Holding Maxzide because of hyponatremia. (7) Abnormal chest x-ray: Possible infiltrate seen on admission CXR but patient without any respiratory symptoms. She is clinically improved with treatment for her sodium and her bradycardia. Repeat CXR reveals almost complete resolution of initial findings. No antibiotics indicated. Patient is aware of the findings and to seek medical attention if she develops fever, malaise or respiratory symptoms. Recommend to repeat CXR in 4-6 weeks as outpatient. (8) DVT prophylaxis: Lovenox Full Code Dispo- cont telemetry monitoring Lynsey Ge DO [facility] Hospitalist Subjective Doing well, denies any respiratory symptoms at all. Denies stroke symptoms overnight Denies abdominal pain-improved dfrom yesterday, but she does report "gas" Reports drinking 3 quarts of water daily Denies pain, trouble breathing, nausea Feels better overall Review of Systems Review of Systems: All systems reviewed & are unremarkable except as noted in HPI & below Physical Exam Physical Exam: CONSTITUTIONAL: obese, vitals as above, generally well- appearing EYES: normal conjunctivae, no scleral icterus RESPIRATORY: clear to auscultation bilaterally, no crackles, rales or wheezes, normal respiratory effort CARDIOVASCULAR: shauna rate, 3/6 ANAHY heard across precordium, 2+ pulses bilaterally, no peripheral edema GASTROINTESTINAL: soft, abdominal tenderness has resolved, worse in suprapubic area MUSCULOSKELETAL: strength 5/5 throughout, head is normocephalic and atraumatic SKIN: warm and dry NEUROLOGIC: CN 2-12 intact, no sensory deficit, normal cognition, no gross focal deficits. PSYCHIATRIC: alert cooperative and oriented to person, place and time. Results & Data Vital Signs (Past 12 Hours) Vital Signs Temp Pulse Pulse Pulse Resp BP Pulse Ox 09/16/18 11:03 36.3 C L 42 L 17 155/64 H 97 09/16/18 08:00 40 L 09/16/18 04:00 36.3 C L 40 L 17 155/69 H 95 Laboratory Results Short CBC 09/16/18 Range/Units 06:28 WBC 6.38 (4.8-10.8) K/uL Hgb 11.4 L (12.0-16.0) g/dL Hct 31.9 L (37-47) % Plt Count 264 (130-400) K/uL BMP 09/15/18 09/15/18 09/15/18 13:09 15:05 23:09 Sodium 123 L 123 L 126 L Potassium 3.8 3.5 Chloride 85 L 86 L 88 L Carbon Dioxide 31 31 30 BUN 21 H 22 H 27 H Creatinine 1.45 H 1.85 H D 1.47 H D Glucose 216 H 153 H 119 H Calcium 7.9 L 8.3 L 7.9 L 09/16/18 06:28 Sodium 128 L Potassium 3.3 L Chloride 91 L Carbon Dioxide 30 BUN 25 H Creatinine 1.24 H Glucose 98 Calcium 8.1 L Medications Administered Current Inpatient Medications Acetaminophen (Tylenol) 650 mg PO Q4H PRN PRN Reason: Pain or Fever Stop: 10/14/18 22:12 Last Admin: 09/16/18 00:17 Dose: 650 mg Documented by: Amlodipine Bes[facility] ([facility]) [facility] Stop: 10/15/18 08:59 Last Admin: 09/16/18 09:20 Dose: 10 mg Documented by: Aspirin (Ecotrin Ectab) 81 mg PO QAM [facility] Stop: 10/17/18 08:59 Atorvastatin Calcium (Lipitor) 40 mg PO QAM [facility] Stop: 10/15/18 08:59 Last Admin: 09/16/18 09:20 Dose: 40 mg Documented by: Clonidine HCl (Catapres) 0.2 mg PO BID [facility] Stop: 10/15/18 08:59 Last Admin: 09/15/18 08:06 Dose: 0.2 mg Documented by: Clopidogrel Bisulfate (Plavix) 75 mg PO QAM [facility] Stop: 10/16/18 08:59 Last Admin: 09/16/18 09:21 Dose: 75 mg Documented by: Enoxaparin Sodium (Lovenox) 40 mg SQ QPM [facility] Stop: 10/15/18 20:59 Last Admin: 09/15/18 19:51 Dose: 40 mg Documented by: Gadobutrol (Gadavist 65ml) 7.5 ml IV ONCE PRN PRN Reason: Interaction Checking Stop: 09/19/18 14:32 Last Admin: 09/15/18 14:34 Dose: 7.5 ml Documented by: Miscellaneous Information (Pharmacist Discharge Med Rec Consult) 1 ea N/A UD PRN PRN Reason: Consult Stop: 10/14/18 22:12 Nitroglycerin (Nitrostat) 0.4 mg SL UD PRN PRN Reason: Chest Pain Stop: 10/14/18 22:12 Ondansetron HCl (Zofran) 4 mg IV Q6H PRN PRN Reason: Nausea Stop: 10/14/18 22:12 Polyethylene Glycol (Miralax Powder Packet) 17 gm PO DAILY PRN PRN Reason: Constipation Stop: 10/15/18 20:37 Last Admin: 09/15/18 21:36 Dose: 17 gm Documented by: (1) Abdominal pain Abdominal location: generalized Qualified Code(s): R10.84 - Generalized abdominal pain (2) HTN (hypertension) Hypertension type: essential hypertension Qualified Code(s): I10 - Essential (primary) hypertension
--- NOTE | 2018-09-16 13:34 | Nephrology Progress Note ---
Date of Service September 16, 2018 Assessment & Plan (1) Hyponatremia: Patient with hypoosmolar hyponatremia likely due to hypovolemia. Sodium t 128 today. Target rate of correction is 6 in 24 hours. Monitor sodium q. 12 hourly. Continue holding hydrochlorothiazide as well. She might need a fluid restriction at discharge but can drink freely for now. (2) Hypokalemia: Patient with hypokalemia likely due to inadequate p.o. intake. No need to correct K today as correcting will increase Na further. Monitor potassium at least twice daily. Patient should stop hydrochlorothiazide completely going forward. Subjective Seen in follow up for hyponatremia. She feels better today, denies any nausea or vomiting. She eating and drinking well. Na is better at 128 Review of Systems Review of Systems: All systems reviewed & are unremarkable except as noted in HPI & below Physical Exam Physical Exam: General exam: Appears comfortable, no acute distress HEENT: Pupils are equal and reactive to light Neck: No JVD, neck is supple trachea is midline Respiratory system: Clear breath sounds bilaterally. Gastrointestinal: Abdomen is soft, non distended, non tender, bowel sounds are present CVS: Regular rate and rhythm. No murmurs, rubs or gallops Musculoskeletal: No joint or muscle tenderness Extremities: Non tender, no edema, peripheral pulses are present Neuro: Oriented, no tremors, no focal neurological deficits Skin: No rashes Results & Data Vital Signs (Past 12 Hours) Vital Signs Temp Pulse Pulse Pulse Resp BP Pulse Ox 09/16/18 11:03 36.3 C L 42 L 17 155/64 H 97 09/16/18 08:00 40 L 09/16/18 04:00 36.3 C L 40 L 17 155/69 H 95 Laboratory Results Laboratory Results - last 24 hr 09/15/18 09/15/18 09/15/18 13:09 15:05 15:05 WBC RBC Hgb Hct MCV MCH MCHC RDW Std Deviation RDW Coeff of Pam Plt Count MPV Immature Gran % (Auto) Neut % (Auto) Lymph % (Auto) [place] % (Auto) Eos % (Auto) Baso % (Auto) Immature Gran # (Auto) Neut # (Auto) Lymph # (Auto) [place] # (Auto) Eos # (Auto) Baso # (Auto) PT 10.3 INR 1.0 APTT 27.9 PTT Ratio 1.0 Sodium 123 L 123 L Potassium 3.8 Chloride 85 L 86 L Carbon Dioxide 31 31 Anion Gap 7.0 6.0 BUN 21 H 22 H Creatinine 1.45 H 1.85 H D Est Cr Clr Drug Dosing 33.4 26.5 Est GFR ( Amer) 41.0 30.6 Est GFR (Non-Af Amer) 35.4 26.4 BUN/Creatinine Ratio 14.5 11.7 Glucose 216 H 153 H POC Glucose Calcium 7.9 L 8.3 L 09/15/18 09/15/18 09/15/18 16:56 20:43 23:09 WBC RBC Hgb Hct MCV MCH MCHC RDW Std Deviation RDW Coeff of Pam Plt Count MPV Immature Gran % (Auto) Neut % (Auto) Lymph % (Auto) [place] % (Auto) Eos % (Auto) Baso % (Auto) Immature Gran # (Auto) Neut # (Auto) Lymph # (Auto) [place] # (Auto) Eos # (Auto) Baso # (Auto) PT INR APTT PTT Ratio Sodium 126 L Potassium 3.5 Chloride 88 L Carbon Dioxide 30 Anion Gap 8.0 BUN 27 H Creatinine 1.47 H D Est Cr Clr Drug Dosing 33.3 Est GFR ( Amer) 40.3 Est GFR (Non-Af Amer) 34.8 BUN/Creatinine Ratio 18.3 Glucose 119 H POC Glucose 142 H 108 H Calcium 7.9 L 09/16/18 09/16/18 09/16/18 06:28 06:28 07:26 WBC 6.38 RBC 3.82 L Hgb 11.4 L Hct 31.9 L MCV 83.5 MCH 29.8 MCHC 35.7 RDW Std Deviation 40.9 RDW Coeff of Pam 13.5 Plt Count 264 MPV 9.8 Immature Gran % (Auto) 0.3 Neut % (Auto) 42.2 Lymph % (Auto) 35.6 [place] % (Auto) 15.2 Eos % (Auto) 6.4 Baso % (Auto) 0.3 Immature Gran # (Auto) 0.02 Neut # (Auto) 2.69 Lymph # (Auto) 2.27 [place] # (Auto) 0.97 H Eos # (Auto) 0.41 Baso # (Auto) 0.02 PT INR APTT PTT Ratio Sodium 128 L Potassium 3.3 L Chloride 91 L Carbon Dioxide 30 Anion Gap 7.0 BUN 25 H Creatinine 1.24 H Est Cr Clr Drug Dosing 39.6 Est GFR ( Amer) 49.6 Est GFR (Non-Af Amer) 42.8 BUN/Creatinine Ratio 19.8 Glucose 98 POC Glucose 110 H Calcium 8.1 L 09/16/18 11:19 WBC RBC Hgb Hct MCV MCH MCHC RDW Std Deviation RDW Coeff of Pam Plt Count MPV Immature Gran % (Auto) Neut % (Auto) Lymph % (Auto) [place] % (Auto) Eos % (Auto) Baso % (Auto) Immature Gran # (Auto) Neut # (Auto) Lymph # (Auto) [place] # (Auto) Eos # (Auto) Baso # (Auto) PT INR APTT PTT Ratio Sodium Potassium Chloride Carbon Dioxide Anion Gap BUN Creatinine Est Cr Clr Drug Dosing Est GFR ( Amer) Est GFR (Non-Af Amer) BUN/Creatinine Ratio Glucose POC Glucose 114 H Calcium
--- NOTE | 2018-09-16 13:51 | Cardiology Progress Note ---
Date of Service September 16, 2018 Assessment & Plan (1) Bradycardia: (2) HTN (hypertension): (3) Acute CVA (cerebrovascular accident): (4) Hyponatremia: (5) Hypokalemia: Heart rate improving with discontinuation of clonidine. No overt indication for pacemaker implantation at this time. Continue to monitor heart rate via telemetry. Discussed possible need for pacemaker implantation at some point in the future given suspected sinus node dysfunction. Patient is resistant to possible pacemaker implantation at this time, however, states she would reconsider if she becomes symptomatic. Recommend avoiding all AV venu blocking agents at this time. IV fluid/Karol light replacement as per nephrology. Will continue to follow during hospitalization. Subjective Patient seen and examined at the bedside. Feeling better from a cardiovascular perspective. Heart rate improved. Currently running 40 to 49 bpm at rest. Occasionally heart rate increasing to the 60s with activity. Denies lightheadedness, dizziness, syncope, near syncope. Electrolytes and volume status improving with hydration. Mild hypokalemia noted on a.m. labs. Patient denies chest pain, palpitations, orthopnea, PND, lower extremity edema. Review of Systems Review of Systems: All systems reviewed & are unremarkable except as noted in HPI & below Physical Exam Physical Exam: General: NAD, AAO x3, well nourished. HEENT: Normocephalic. Atraumatic. Conjunctiva pink, no scleral icterus. Neck: No carotid bruits, the carotid upstrokes are brisk. No JVD. No HJR Heart: Regular normal S-1 and S-2 no S-3 or S-4 gallop. 2/6 low pitched mid peaking systolic ejection murmur heard best at the right second intercostal space without radiation. PMI is not displaced. No RV heave. Lungs: Clear bilateral without rales , rhonchi, or wheeze. Abdomen: Normal bowel sounds. Soft. Nontender. No masses or org anomegaly. No abdominal bruits. Extremities: No clubbing, cyanosis, or edema. Pulses: radial=2/4, Dorsalis pedis =2/4, posterior tibial=2/4. Neuro: Cranial nerves grossly intact. No focal motor deficit. Results & Data Vital Signs (Past 12 Hours) Vital Signs Temp Pulse Pulse Pulse Resp BP Pulse Ox 09/16/18 11:03 36.3 C L 42 L 17 155/64 H 97 09/16/18 08:00 40 L 09/16/18 04:00 36.3 C L 40 L 17 155/69 H 95 Laboratory Results Laboratory Results - last 24 hr 09/15/18 09/15/18 09/15/18 15:05 15:05 16:56 WBC RBC Hgb Hct MCV MCH MCHC RDW Std Deviation RDW Coeff of Pam Plt Count MPV Immature Gran % (Auto) Neut % (Auto) Lymph % (Auto) [place] % (Auto) Eos % (Auto) Baso % (Auto) Immature Gran # (Auto) Neut # (Auto) Lymph # (Auto) [place] # (Auto) Eos # (Auto) Baso # (Auto) PT 10.3 INR 1.0 APTT 27.9 PTT Ratio 1.0 Sodium 123 L Potassium 3.8 Chloride 86 L Carbon Dioxide 31 Anion Gap 6.0 BUN 22 H Creatinine 1.85 H D Est Cr Clr Drug Dosing 26.5 Est GFR ( Amer) 30.6 Est GFR (Non-Af Amer) 26.4 BUN/Creatinine Ratio 11.7 Glucose 153 H POC Glucose 142 H Calcium 8.3 L 09/15/18 09/15/18 09/16/18 20:43 23:09 06:28 WBC 6.38 RBC 3.82 L Hgb 11.4 L Hct 31.9 L MCV 83.5 MCH 29.8 MCHC 35.7 RDW Std Deviation 40.9 RDW Coeff of Pam 13.5 Plt Count 264 MPV 9.8 Immature Gran % (Auto) 0.3 Neut % (Auto) 42.2 Lymph % (Auto) 35.6 [place] % (Auto) 15.2 Eos % (Auto) 6.4 Baso % (Auto) 0.3 Immature Gran # (Auto) 0.02 Neut # (Auto) 2.69 Lymph # (Auto) 2.27 [place] # (Auto) 0.97 H Eos # (Auto) 0.41 Baso # (Auto) 0.02 PT INR APTT PTT Ratio Sodium 126 L Potassium 3.5 Chloride 88 L Carbon Dioxide 30 Anion Gap 8.0 BUN 27 H Creatinine 1.47 H D Est Cr Clr Drug Dosing 33.3 Est GFR ( Amer) 40.3 Est GFR (Non-Af Amer) 34.8 BUN/Creatinine Ratio 18.3 Glucose 119 H POC Glucose 108 H Calcium 7.9 L 09/16/18 09/16/18 09/16/18 06:28 07:26 11:19 WBC RBC Hgb Hct MCV MCH MCHC RDW Std Deviation RDW Coeff of Pam Plt Count MPV Immature Gran % (Auto) Neut % (Auto) Lymph % (Auto) [place] % (Auto) Eos % (Auto) Baso % (Auto) Immature Gran # (Auto) Neut # (Auto) Lymph # (Auto) [place] # (Auto) Eos # (Auto) Baso # (Auto) PT INR APTT PTT Ratio Sodium 128 L Potassium 3.3 L Chloride 91 L Carbon Dioxide 30 Anion Gap 7.0 BUN 25 H Creatinine 1.24 H Est Cr Clr Drug Dosing 39.6 Est GFR ( Amer) 49.6 Est GFR (Non-Af Amer) 42.8 BUN/Creatinine Ratio 19.8 Glucose 98 POC Glucose 110 H 114 H Calcium 8.1 L (1) HTN (hypertension) Hypertension type: essential hypertension Qualified Code(s): I10 - Essential (primary) hypertension
--- NOTE | 2018-09-16 14:25 | Neurology Progress Note ---
Date of Service September 16, 2018 Assessment & Plan (1) H/O TIA (transient ischemic attack) and stroke: 1. CT head - no acute findings 2. MRI brain- Enhancing subacute infarct right external capsule and right periventricular region subacute infarct. 3. TTE- EF 65-70% no ASD 4. sodium on admission 117 potassium 2.6- currently correcting 5. optimize HTN, HLD, DM LDL <70 6. PT/OT speech for discharge needs. 7. CTA head and neck ordered and pending 8. aspirin 81 mg and plavix 75 mg daily x 21 days then stop aspirin 81 mg and continue plavix for a lifetime follow up in neurology in 4-6 weeks after discharge Ria Camarillo PAC schedule (2) Hyponatremia: (3) Hypokalemia: Supervising Physician Co-Signing Physician Notes I have seen and discussed above patient with Dr Rj Price. Patient was seen and examined. Two daughters are at bedside. I Agree with Ria Camarillo as noted above. In short Ms. Chaidez is a 73 year old woman with recent right sided lacunar infarct, small vessel in etiology. Speech is currently back to baseline. Facial droop has resolved. She was admitted 2-days ago due to for generalized weakness and malaise which is likely secondary to hyponatremia and hypokalemia. Possibly secondary to medication Vs poor PO intake. Electrolytes improving. CTA head and neck today showed no significant stenosis or LVO. Recommend to continue ASA 81 mg daily and Plavix 75 mg daily for 21-days then Plavix 75 mg daily Continue high intensity statin Patient can follow up in Neurology in 8-weeks. Discussed with patient and daughters. Agreed to plan of care Santa Albert is a 73 year old female with PMH HTN, hyperlipidemia, was seen in the ED for not feeling well Last Saturday she had a slurred speech for about half hour and got resolved and she did not feel like coming to the hospital. Since last 2-3 days, she is feeling generalized weakness, does not want to sleep, some nausea, abdominal discomfort but no vomiting, no diarrhea. She states she is somewhat constipated, but she had 1 loose bowel movement today. Appetite is poor since last 3-4 days. She states since coming to the hospital she does feel better no current nausea. She is up walking in the [place] with her daughters and wants to go home. She denies any further symptoms or slurred speech or facial droop. denies current CP, SOB, abdominal pain, one sided weakness,numbness tingling, N,V, slurred speech, swallowing issues. Physical Exam Physical Exam: Gen: alert NAD, lungs normal respiratory effort CV RRR strenght 5/5 bilaterally LE hip flex ext plantar flex ext smile eye brow raise symmetric Results & Data Vital Signs (Past 12 Hours) Vital Signs Temp Pulse Pulse Pulse Resp BP Pulse Ox 09/16/18 11:03 36.3 C L 42 L 17 155/64 H 97 09/16/18 08:00 40 L 09/16/18 04:00 36.3 C L 40 L 17 155/69 H 95 Laboratory Results Abnormal lab results 09/15/18 09/15/18 09/15/18 Range/Units 15:05 16:56 20:43 RBC (4.2-5.4) M/uL Hgb (12.0-16.0) g/dL Hct (37-47) % [place] # (Auto) (0.11-0.59) K/uL Sodium 123 L (136-145) mmol/L Potassium (3.5-5.1) mmol/L Chloride 86 L (98-107) mmol/L BUN 22 H (7-18) mg/dl Creatinine 1.85 H D (0.6-1.2) mg/dl Glucose 153 H (70-99) mg/dl POC Glucose 142 H 108 H (70-99) Calcium 8.3 L (8.5-10.1) mg/dl 09/15/18 09/16/18 09/16/18 Range/Units 23:09 06:28 06:28 RBC 3.82 L (4.2-5.4) M/uL Hgb 11.4 L (12.0-16.0) g/dL Hct 31.9 L (37-47) % [place] # (Auto) 0.97 H (0.11-0.59) K/uL Sodium 126 L 128 L (136-145) mmol/L Potassium 3.3 L (3.5-5.1) mmol/L Chloride 88 L 91 L (98-107) mmol/L BUN 27 H 25 H (7-18) mg/dl Creatinine 1.47 H D 1.24 H (0.6-1.2) mg/dl Glucose 119 H (70-99) mg/dl POC Glucose (70-99) Calcium 7.9 L 8.1 L (8.5-10.1) mg/dl 09/16/18 09/16/18 Range/Units 07:26 11:19 RBC (4.2-5.4) M/uL Hgb (12.0-16.0) g/dL Hct (37-47) % [place] # (Auto) (0.11-0.59) K/uL Sodium (136-145) mmol/L Potassium (3.5-5.1) mmol/L Chloride (98-107) mmol/L BUN (7-18) mg/dl Creatinine (0.6-1.2) mg/dl Glucose (70-99) mg/dl POC Glucose 110 H 114 H (70-99) Calcium (8.5-10.1) mg/dl Diagnostic Findings MRI brain - Enhancing subacute infarct right external capsule and right periventricular region. Given the degree of enhancement as well as additional signal characteristics this suggests a subacute infarct. Moderate chronic small vessel change of aging
--- NOTE | 2018-09-16 14:59 | CT Scan Report ---
CT angio head wo/w HISTORY: Mental status change evaluate vascular s/p stroke TECHNIQUE: Multiaxial CT angiography of the head was performed IV contrast: None. Maximum intensit y projection images were also obtained. A dose lowering technique was utilized adhering to the princ iplBin. COMPARISON: None. FINDINGS: There is no mass, hematoma, midline shift, or acute infarct. Visualized intracranial international trade teacher al carotid arteries, distal vertebral arteries, and basilar artery are widely patent. There is no sig nificant stenosis, occlusion, or aneurysm seen within the bilateral ACAs, MCAs, or trim stencil maker. IMPRESSION: No significant stenosis, occlusion, or aneurysm within the [place]. The above report was generated using voice recognition software. It may contain grammatical, syntax or spelling errors. Electronically signed by: Joey Nguyen M.D. 09/16/2018 2:57 PM
--- NOTE | 2018-09-16 15:23 | CT Scan Report ---
CT angio neck with con HISTORY: Mental status change evaluate vascular s/p stroke TECHNIQUE: Multiaxial CT angiography of the neck was performed IV contrast: None. All measurements w ere calculated based on NASCET criteria. Maximum intensity projection images were also obtained. A dose lowering technique was utilized adhering to the principles of ALARA. COMPARISON STUDY: None. FINDINGS: The aortic arch and proximal great vessels are widely patent. There is no significant sten osis, occlusion, or dissection identified within the bilateral common carotid, internal carotid, or v ertebral arteries. Plaque formation at the carotid bifurcations and proximal carotid arteries bilater ally. IMPRESSION: No significant stenosis, occlusion, or dissection identified within the carotid or vertebral arteries . Moderate atherosclerotic change primarily at the carotid bifurcations and proximal carotid arteries bilaterally The above report was generated using voice recognition software. It may contain grammatical, syntax or spelling errors. Electronically signed by: Joey Nguyen M.D. 09/16/2018 3:21 PM
[2018-09-16] MEDS: ENOXAPARIN INJ 40 MG/0.4 ML SYR SQ SCH (20:30)
[2018-09-17 07:08] LABS: Basophils # (auto) 0.02 K/uL (0-0.2); Basophils % (auto) 0.3 %; Eosinophils # (auto) 0.46 K/uL (0-0.5); Eosinophils % (auto) 7.5 %; Hemoglobin 11.6 g/dL (12.0-16.0); Immature Granulocytes # (auto) 0.01 K/uL (0.00-0.02); Immature Granulocytes % (auto) 0.2 %; Lymphocytes # (auto) 1.14 K/uL (1.2-3.4); Lymphocytes % (auto) 18.6 %; Mean Corpuscular Hgb Conc 35.2 g/dL (32-36); Mean Corpuscular Volume 84.6 fL (80-100); Mean Platelet Volume 9.5 fL (7.4-10.4); Monocytes # (auto) 0.93 K/uL (0.11-0.59); Monocytes % (auto) 15.2 %; Neutrophils # (auto) 3.57 K/uL (1.4-6.5); Neutrophils % (auto) 58.2 %; Platelet Count 277 K/uL (130-400); RDW Standard Deviation 43.6 fL (36.4-46.3); White Blood Count 6.13 K/uL (4.8-10.8)
[2018-09-17 07:44] LABS: BUN Creatinine Ratio 22.1 (10-20); Calcium 8.3 mg/dl (8.5-10.1); Est GFR (African American) 44.3; Est GFR (Non-African American) 38.2; Magnesium 2.4 mg/dl (1.8-2.4); Potassium 3.7 mmol/L (3.5-5.1)
[2018-09-17] MEDS: CLOPIDOGREL BISULFATE 75 MG TAB PO SCH (08:27)
[2018-09-17] MEDS: ATORVASTATIN 40 MG TAB PO SCH (08:27)
[2018-09-17] MEDS: AMLODIPINE BESYLATE 5 MG TAB PO SCH (08:27)
[2018-09-17] MEDS: POLYETHYLENE (MIRALAX) 17 GM PACK PO PRN (08:33)
--- NOTE | 2018-09-17 08:43 | Hospitalist Progress Note ---
Date of Service September 17, 2018 Assessment & Plan (1) H/O TIA (transient ischemic attack) and stroke: Subacute stroke last week. No residual neuro deficits. -CT head- Negative for acute abnormalities -MRI Brain-enhancing subacute infarct right external capsule and right periventricular region subacute infarct. -Work up - CTA head/neck- No stenosis -Continue with Aspirin 81 mg daily, Plavix 75 mg daily both for 21 days and then stop aspirin and continue Plavix for lifetime. -Appreciate neurology inputs. Follow-up with neurology in 4 to 6 weeks after discharge with Ria Camarillo PA-C schedule (2) Hyponatremia: Resolving. Sodium went down to 128, now up to 133. Discontinue hydrochlorothiazide Nephrology on board. (3) Hypokalemia: Resolved (4) Abdominal pain: Resolved KUBnormal (5) Bradycardia: Heart rate in 40 to 50s, asymptomatic. Likely secondary to clonidine, improving off Klonopin. Cardiology discussed pacemaker implantation in future for possible sinus venu dysfunction.. Patient is hesitant but will consider in the future if she becomes symptomatic. Avoid all AV venu blocking agents. (6) HTN (hypertension): Elevated as off clonidine and Maxzide. PCP recently added clonidine one month ago. -Continue with Amlodipine 10 mg daily -Start Hydralazine 25 mg PO TID. May consider starting Losartan in future once creatinine stabilized - Monitor BP closely outpatient (7) Abnormal chest x-ray: Possible infiltrate seen on admission CXR but patient without any respiratory symptoms. She is clinically improved with treatment for her sodium and her br adycardia. Repeat CXR reveals almost complete resolution of initial findings. No antibiotics indicated. Patient is aware of the findings and to seek medical attention if she develops fever, malaise or respiratory symptoms. (8) DVT prophylaxis: Lovenox SQ Full Code Dispo- Eager to be discharged Okay to discharge home today Subjective Patient is feeling much better today. Eager to be discharged home today. Denies any headaches, nausea, vomiting, localized weakness, fever, chills. Physical Exam Physical Exam: GENERAL- AAOX3, No acute distress HEAD- Atraumatic, Normocephalic EYES- No pallor, icterus, redness, discharge. Pupils are equal, round, reactive to light and accomodation. EARS- Normal pinna, no discharge, tenderness noted NOSE- No nasal discharge noted NECK- Supple, no JVD LUNGS- Air entry bilaterally equal. No rales, rhonchi, crackles, wheezes heard. HEART- Regular rate and rhythm. Murmur present ABDOMEN- Soft, non tender, non distended, Bowel sounds heard. EXTREMITIES- Good peripheral pulses, no edema NEUROMUSCULAR- AAOX3, 5/5 all extremities, cranial nerves intact Results & Data Vital Signs (Past 12 Hours) Vital Signs Temp Pulse Resp BP Pulse Ox 09/17/18 07:52 36.6 C 98 09/17/18 04:26 36.9 C 47 L 18 159/68 H 97 09/16/18 23:09 36.8 C 50 L 17 153/67 H 98 (1) Abdominal pain Abdominal location: generalized Qualified Code(s): R10.84 - Generalized abdominal pain (2) HTN (hypertension) Hypertension type: essential hypertension Qualified Code(s): I10 - Essential (primary) hypertension
[2018-09-17] MEDS ORDERED: ASPIRIN 81 MG ECTAB PO SCH (09:00)
[2018-09-17] MEDS ORDERED: HydrALAZINE HCL 20 MG/ML VIAL IV STA (12:08)
--- NOTE | 2018-09-17 12:23 | Cardiology Progress Note ---
Date of Service September 17, 2018 Assessment & Plan (1) Bradycardia: (2) HTN (hypertension): (3) Acute CVA (cerebrovascular accident): (4) Hyponatremia: (5) Aortic stenosis: (6) Hypokalemia: Heart rate improving with discontinuation of clonidine. No indication for pacemaker implantation at this time. Blood pressure continues to trend upward. We will add topical nitrates for temporary improvement. Recommend addition of losartan when renal function has returned to baseline and electrolyte abnormalities have resolved. Utilization of oral hydralazine is also an option if necessary. Recommend low-dose, 10 mg 3 times as starting dose if necessary. Patient reports prior intolerance to CESILIA inhibitor secondary to cough. Continue to monitor heart rate via telemetry. Discussed possible need for pacemaker implantation at some point in the future given suspected sinus node dysfunction. All questions answered patient satisfaction. Subjective Patient seen and examined at the bedside. Intravenous hydration discontinued. Creatinine mildly elevated today. Blood pressure trending upward. Vomiting on hold since admission. Telemetry demonstrates sinus bradycardia with heart rate currently in the 50s. Patient denies lightheadedness, dizziness, syncope, or near syncope. Reports cough related to CESILIA inhibitor specifically lisinopril in the past. Offers no other concerns/complaints at this time. Review of Systems Review of Systems: All systems reviewed & are unremarkable except as noted in HPI & below Physical Exam Physical Exam: General: NAD, AAO x3, well nourished. HEENT: Normocephalic. Atraumatic. Conjunctiva pink, no scleral icterus. Neck: No carotid bruits, the carotid upstrokes are brisk. No JVD. No HJR Heart: Regular, bradycardic, normal S-1 and S-2 no S-3 or S-4 gallop. 2/6 low pitched mid peaking systolic ejection murmur heard best at the right second intercostal space without radiation. PMI is not displaced. No RV heave. Lungs: Clear bilateral without rales , rhonchi, or wheeze. Abdomen: Normal bowel sounds. Soft. Nontender. No masses or organomegaly. No abdominal bruits. Extremities: No clubbing, cyanosis, or edema. Pulses: radial=2/4, Dorsalis pedis =2/4, posterior tibial=2/4. Neuro: Cranial nerves grossly intact. No focal motor deficit. Results & Data Vital Signs (Past 12 Hours) Vital Signs Temp Pulse Resp BP Pulse Ox 09/17/18 11:14 36.7 C 50 L 18 181/77 H 97 09/17/18 07:52 36.6 C 98 09/17/18 04:26 36.9 C 47 L 18 159/68 H 97 Laboratory Results Laboratory Results - last 24 hr 09/17/18 09/17/18 06:26 06:26 WBC 6.13 RBC 3.90 L Hgb 11.6 L Hct 33.0 L MCV 84.6 MCH 29.7 MCHC 35.2 RDW Std Deviation 43.6 RDW Coeff of Pam 14.0 Plt Count 277 MPV 9.5 Immature Gran % (Auto) 0.2 Neut % (Auto) 58.2 Lymph % (Auto) 18.6 [place] % (Auto) 15.2 Eos % (Auto) 7.5 Baso % (Auto) 0.3 Immature Gran # (Auto) 0.01 Neut # (Auto) 3.57 Lymph # (Auto) 1.14 L [place] # (Auto) 0.93 H Eos # (Auto) 0.46 Baso # (Auto) 0.02 Sodium 133 L Potassium 3.7 Chloride 97 L Carbon Dioxide 30 Anion Gap 6.0 BUN 30 H Creatinine 1.36 H Est Cr Clr Drug Dosing 36.0 Est GFR ( Amer) 44.3 Est GFR (Non-Af Amer) 38.2 BUN/Creatinine Ratio 22.1 H Glucose 100 H Calcium 8.3 L Magnesium 2.4 (1) HTN (hypertension) Hypertension type: essential hypertension Qualified Code(s): I10 - Essential (primary) hypertension (2) Aortic stenosis Cardiac valve disease etiology: etiology unspecified Qualified Code(s): I35.0 - Nonrheumatic aortic (valve) stenosis
[2018-09-17] MEDS ORDERED: NITROGLYCERIN 2% OINTMENT 30GM TUBE EXT SCH (12:30)
[2018-09-17] MEDS ORDERED: STROKE PATIENT DISCHARGE STA (15:25)
--- NOTE | 2018-09-17 15:31 | Discharge Summary ---
Date of Service September 17, 2018 Principal Diagnosis 1. Hyponatremia, likely hypovolemic 2. Hypokalemia 3. Recent TIA/stroke 4. Sinus bradycardia 5. Hypertension, uncontrolled Discharge Exam GENERAL- AAOX3, No acute distress HEAD- Atraumatic, Normocephalic EYES- No pallor, icterus, redness, discharge. Pupils are equal, round, reactive to light and accomodation. EARS- Normal pinna, no discharge, tenderness noted NOSE- No nasal discharge noted NECK- Supple, no JVD LUNGS- Air entry bilaterally equal. No rales, rhonchi, crackles, wheezes heard. HEART- Regular rate and rhythm. Murmur present ABDOMEN- Soft, non tender, non distended, Bowel sounds heard. EXTREMITIES- Good peripheral pulses, no edema NEUROMUSCULAR- AAOX3, 5/5 all extremities, cranial nerves intact Discharge Data Allergies Allergy/AdvReac Type Severity Reaction Status Date / Time No Known Allergies Allergy Unverified 09/14/18 19:26 Consultations 09/14/18 20:40 ED Decision to Admit Stat 09/14/18 22:13 Consult Case Management - Discharge Planning Routine Consult Case Management - Discharge Planning Routine 09/15/18 08:00 Consult Nephrology Routine Consult Neurology Routine 09/15/18 12:36 Consult Cardiology Routine 09/15/18 13:53 HIM [Consult Health Information Management] Stat Ordered Studies 09/14/18 19:11 CT head/brain wo con Stat 09/15/18 10:00 MR brain wo/w con Routine 09/15/18 22:13 US carotid doppler BI Routine 09/16/18 12:13 CT angio head wo/w Routine CT angio neck with con Routine Hospital Course (1) H/O TIA (transient ischemic attack) and stroke: Subacute stroke last week. No residual neuro deficits. -CT head- Negative for acute abnormalities -MRI Brain-enhancing subacute infarct right external capsule and right periventricular region subacute infarct. -Work up - CTA head/neck- No stenosis -Continue with Aspirin 81 mg daily, Plavix 75 mg daily both for 21 days and then stop aspirin and continue Plavix for lifetime. -Appreciate neurology inputs. Follow-up with neurology in 4 to 6 weeks after discharge with Ria Camarillo PA-C schedule (2) Hyponatremia: Resolving. Sodium went down to 128, now up to 133. Discontinue hydrochlorothiazide Nephrology on board. (3) Hypokalemia: Resolved (4) Abdominal pain: Resolved KUBnormal (5) Bradycardia: Heart rate in 40 to 50s, asymptomatic. Likely secondary to clonidine, improving off Klonopin. Cardiology discussed pacemaker implantation in future for possible sinus venu dysfunction.. Patient is hesitant but will consider in the future if she becomes symptomatic. Avoid all AV venu blocking agents. (6) HTN (hypertension): Elevated as off clonidine and Maxzide. PCP recently added clonidine one month ago. -Continue with Amlodipine 10 mg daily -Start Hydralazine 25 mg PO TID. May consider starting Losartan in future once creatinine stabilized - Monitor BP closely outpatient (7) Abnormal chest x-ray: Possible infiltrate seen on admission CXR but patient without any respiratory symptoms. She is clinically improved with treatment for her sodium and her bradycardia. Repeat CXR reveals almost complete resolution of initial findings. No antibiotics indicated. Patient is aware of the findings and to seek medical attention if she develops fever, malaise or respiratory symptoms. (8) DVT prophylaxis: Lovenox SQ Full Code Dispo- Eager to be discharged Okay to discharge home today Updated daughter by bedside Total Time Total Time Spent Total Time Spent (In Minutes): 35 minutes Discharge Plan Discharge Items Patient Disposition: Home - Self-Care Reason For Visit: NOT FEELING WELL Discharge Diagnosis: Stroke Hypertension, uncontrolled Hyponatremia Hypokalemia Discharge Goals: Decrease discomfort Activity: Resume your previous activity Non-emergency contact: Primary Care Provider Call non-emergency contact if: your symptoms worsen Follow-up/Referrals: Hi Henderson MD [Primary Care Provider] - (Please make a follow up appt within 7 days ) Diet: Low Sodium (2gm) Addtl Provider Instructions: MEDICATION CHANGES : 1. Discontinue Hydrochlorthiazide/ Triamterene 2. Discontinue Clonidine 3. New medication- Hydralazine 25 mg PO three times a day 4. New medication- Plavix 75 mg daily Prescriptions: New clopidogrel 75 mg Tablet 75 mg PO QAM 30 Days Qty: 30 RF: 0 hydralazine 25 mg tablet 25 mg PO TID Qty: 90 RF: 1 Continued atorvastatin 40 mg tablet 40 mg PO QAM RF: 0 amlodipine 10 mg tablet 10 mg PO QAM RF: 0 aspirin [Aspirin Low Dose] 81 mg Tablet,Delayed Release (Dr/Ec) 162 mg PO QAM RF: 0 ibuprofen 200 mg Tablet 200 mg PO Q6H PRN (Reason: Pain) RF: 0 potassium chloride 10 mEq tablet,ER particles/crystals 10 meq PO BID RF: 0 Discontinued clonidine HCl 0.2 mg tablet 0.2 mg PO BID RF: 0 triamterene-hydrochlorothiazid 37.5-25 mg capsule 1 cap PO QAM RF: 0 Stand-Alone Forms: [facility]/Other Patient Handouts: Diabetes Type 2 Coping, Diabetes Meal Planning Discharge Orders: Discharge Order (Routine); Ordered 09/17/18 Ordered By: Leidy Zurita Admission Data Admit Date/Time: 09/14/18 21:26 Attending Provider: Leidy Zurita Admit Provider: Reji Low Primary Care Provider: Hi Henderson Other Providers: Reji Low ; Ju Ha ; Ria Camarillo ; Primo Pena ; Ria Quezada ; Rj Price ; Andrew Lee ; Lynsey Ge Service: Telemetry
--- NOTE | 2018-09-17 16:19 | Pharmacy Report ---
Pharmacist Stroke Counseling - Date of Service September 17, 2018 - Scope: Pharmacy has been consulted to provide medication discharge counseling for this patient admitted with ischemic stroke as per the Pharmacist Discharge Counseling for Stroke Patients Protocol. - Medications on Discharge: Home Medications Medication Instructions Recorded Confirmed amlodipine 10 mg PO QAM 09/14/18 09/14/18 atorvastatin 40 mg PO QAM 09/14/18 09/14/18 potassium chloride 10 meq PO BID 09/14/18 09/14/18 New Rx's Medication Instructions Recorded aspirin [Aspirin Low Dose] 81 mg PO QAM #0 tab (X 21 DAYS) 09/17/18 clopidogrel 75 mg PO QAM 30 Days #30 tab 09/17/18 hydralazine 25 mg PO TID #90 tab 09/17/18 - Action: The above medications, specifically ones for stroke treatment/prophylaxis, have been reviewed in detail with the patient and/or patient patient representative(s) prior to discharge. This includes indication, common adverse reactions, drug interactions, and medication administration. Medication counseling has been employed using the teach-back method to ensure understanding. - Outcome: The patient and/or patient patient representative(s) have demonstrated understanding of the medications. Please note, they are aware that the pharmacist will call them within 72 hours post-discharge to confirm that the appropriate medications are being taken and answer any further medication related questions the patient might have at that time. Contact information Individual to be contacted: Patient Relationship to patient (if applicable): Phone number: [phone] (this is a central line that we will need to leave a message and then patient will call back) Best time to call: anytime Additional comments: * 73 y/o Religion F admitted for stroke * Discharge medication changes made per discussion w/ provider - decrease ASA to 81 mg daily and d/c ibuprofen * Reviewed med list in detail with patient * She is aware to decrease her ASA dose and take for only 21 days. The Plavix will be continued. * She is also aware of changes to BP meds. She will not be able to get her hydralazine until tomorrow so nurse was going to contact Dr. Zurita for an additional dose of hydralazine prior to discharge (BP was elevated earlier today). * Patient asked if [facility] could deliver her medications. I called them to confirm they'll be delivered tomorrow. * Patient aware to take APAP prn pain instead of ibuprofen to minimize bleeding risk Thank you for allowing pharmacy to be involved in the care of this patient. Please call [phone] or [phone] with any additional questions
--- NOTE | 2018-09-17 16:31 | Nephrology Progress Note ---
Date of Service September 17, 2018 Assessment & Plan (1) Hyponatremia: Patient with hypoosmolar hyponatremia likely due to hypovolemia. Sodium 133 today. Target rate of correction is 6 in 24 hours. Monitor sodium q. 24 hourly. Continue holding hydrochlorothiazide as well. She might need a fluid restriction at discharge but can drink freely for now. If discharged, patient can follow-up with nephrology in 1 to 2 weeks. (2) Hypokalemia: Patient with hypokalemia likely due to inadequate p.o. intake. K improved. Monitor potassium daily. Patient should stop hydrochlorothiazide completely going forward. (3) HTN (hypertension): Blood pressure is above target in setting of holding hydrochlorthiazide. Agree with starting hydralazine 25 mg 3 times daily. If patient needs a diuretic we may have to use Aldactone but this can be started as an outpatient. Subjective Patient seen during morning rounds in follow-up. She feels better denies any nausea or vomiting. She is eating and drinking well. Review of Systems Review of Systems: All systems reviewed & are unremarkable except as noted in HPI & below Physical Exam Physical Exam: General exam: Appears comfortable, no acute distress HEENT: Pupils are equal and reactive to light Neck: No JVD, neck is supple trachea is midline Respiratory system: Clear breath sounds bilaterally. Gastrointestinal: Abdomen is soft, non distended, non tender, bowel sounds are present CVS: Regular rate and rhythm. No murmurs, rubs or gallops Musculoskeletal: No joint or muscle tenderness Extremities: Non tender, no edema, peripheral pulses are present Neuro: Oriented, no tremors, no focal neurological deficits Skin: No rashes Results & Data Vital Signs (Past 12 Hours) Vital Signs Temp Pulse Resp BP BP Pulse Ox 09/17/18 15:10 37.1 C 60 20 142/53 H 98 09/17/18 12:58 37.0 C 58 L 16 139/66 97 09/17/18 11:14 36.7 C 50 L 18 181/77 H 97 09/17/18 07:52 36.6 C 98 Laboratory Results Laboratory Results - last 24 hr 09/17/18 09/17/18 06:26 06:26 WBC 6.13 RBC 3.90 L Hgb 11.6 L Hct 33.0 L MCV 84.6 MCH 29.7 MCHC 35.2 RDW Std Deviation 43.6 RDW Coeff of Pam 14.0 Plt Count 277 MPV 9.5 Immature Gran % (Auto) 0.2 Neut % (Auto) 58.2 Lymph % (Auto) 18.6 [place] % (Auto) 15.2 Eos % (Auto) 7.5 Baso % (Auto) 0.3 Immature Gran # (Auto) 0.01 Neut # (Auto) 3.57 Lymph # (Auto) 1.14 L [place] # (Auto) 0.93 H Eos # (Auto) 0.46 Baso # (Auto) 0.02 Sodium 133 L Potassium 3.7 Chloride 97 L Carbon Dioxide 30 Anion Gap 6.0 BUN 30 H Creatinine 1.36 H Est Cr Clr Drug Dosing 36.0 Est GFR ( Amer) 44.3 Est GFR (Non-Af Amer) 38.2 BUN/Creatinine Ratio 22.1 H Glucose 100 H Calcium 8.3 L Magnesium 2.4 (1) HTN (hypertension) Hypertension type: essential hypertension Qualified Code(s): I10 - Essential (primary) hypertension
--- NOTE | 2018-09-18 15:25 | Pharmacy Report ---
Pharmacist Post D/C Phone Note - Phone Note: Date of phone call: September 18, 2018. The patient was unable to be reached for a follow-up phone call within the 72 hour time frame. Voicemail box not set up for number given to us to call. Discharge counseling pharmacist contact information has already been provided to the patient should questions arise. Thank you for allowing us to be involved in the care of this patient. - Home Medications: Home Medications Medication Instructions Recorded Confirmed amlodipine 10 mg PO QAM 09/14/18 09/14/18 atorvastatin 40 mg PO QAM 09/14/18 09/14/18 potassium chloride 10 meq PO BID 09/14/18 09/14/18 New Rx's Medication Instructions Recorded aspirin [Aspirin Low Dose] 81 mg PO QAM #0 tab 09/17/18 clopidogrel 75 mg PO QAM 30 Days #30 tab 09/17/18 hydralazine 25 mg PO TID #90 tab 09/17/18
== END 2018-09-17 18:38 | disposition home or self-care (01) | DRG 640 ==
LOC: ED 18:57 → 2S 21:26 → SUATTDRO 21:26 → 2S 21:56
DX: I35.0 Nonrheumatic aortic (valve) stenosis; R00.1 Bradycardia, unspecified; E87.1 Hypo-osmolality and hyponatremia; Y92.009 Unspecified place in unspecified non-institutional (private) residence as the place of occurrence of the external cause; E78.5 Hyperlipidemia, unspecified; Z79.82 Long term (current) use of aspirin; Z86.73 Personal history of transient ischemic attack (TIA), and cerebral infarction without residual deficits; I63.50 Cerebral infarction due to unspecified occlusion or stenosis of unspecified cerebral artery; E87.6 Hypokalemia; T46.5X5A Adverse effect of other antihypertensive drugs, initial encounter; E86.1 Hypovolemia; I10 Essential (primary) hypertension

== ENCOUNTER 2020-02-02 09:21 | Inpatient (IN) ==
[2020-02-02 10:03] LABS: Basophils # (auto) 0.02 K/uL (0-0.2); Basophils % (auto) 0.2 %; Eosinophils # (auto) 0.21 K/uL (0-0.5); Eosinophils % (auto) 2.3 %; Hematocrit (blood only) 26.1 % (37-47); Hemoglobin 8.8 g/dL (12.0-16.0); Immature Granulocytes # (auto) 0.03 K/uL (0.00-0.02); Immature Granulocytes % (auto) 0.3 %; Lymphocytes # (auto) 1.43 K/uL (1.2-3.4); Lymphocytes % (auto) 15.8 %; Mean Corpuscular Hemoglobin 30.3 pg (25-34); Mean Corpuscular Hgb Conc 33.7 g/dL (32-36); Mean Platelet Volume 9.4 fL (7.4-10.4); Monocytes # (auto) 1.12 K/uL (0.11-0.59); Monocytes % (auto) 12.4 %; Neutrophils # (auto) 6.23 K/uL (1.4-6.5); Platelet Count 276 K/uL (130-400); RDW Coefficient of Variation 16.1 % (11.5-14.5); RDW Standard Deviation 53.4 fL (36.4-46.3); White Blood Count 9.04 K/uL (4.8-10.8)
--- NOTE | 2020-02-02 10:05 | XRay Report ---
XR chest 1V portable HISTORY: weakness COMPARISON: None. FINDINGS: Cardiac silhouette is mild enlarged. This has progressed. Perihilar interstitial vascular t hickening with hazy airspace opacities. There are small bilateral pleural effusions and bibasilar den sities. IMPRESSION: 1. Above findings suggest pulmonary edema with small bilateral pleural effusions. 2. Bibasilar densities favor atelectasis from the pleural effusions. A superimposed pneumonia cannot be excluded. ACT 112: Negative or not required by law. Electronically signed by: Tolu Thompson M.D. 02/02/2020 10:04 AM
--- NOTE | 2020-02-02 10:08 | Emergency Department Note ---
Impression & Plan Hypoxia, Hypokalemia, Atrial fibrillation with rapid ventricular response, Pressure in chest, Elevated troponin ED Provider Note Provider: Gordy Galeas MD DATE OF SERVICE:02/02/2020 CHIEF COMPLAINT: Short of breath, chest pressure HISTORY OF PRESENT ILLNESS: Patient is a 74-year-old female history of TIA, aortic stenosis, atrial fibrillation maintained on Eliquis presenting today by ambulance from home reporting some weakness and chest pressure. [facility] ambulance initially evaluated the patient and she evidently started on oxygen yesterday for shortness of breath that she was able to find from various family members and neighbors. Not normally on oxygen. Found to be tachycardic and ALS was called. [facility] report the patient was in rapid A. fib but IV access was unable he obtained. Patient was put on oxygen and increased to 6 L with improvement of her symptoms. Was in the 80s on room air per the report. Patient self reports she has had some chest pressure with some pain in her left shoulder and into her neck but that improved with oxygen. Denies nausea, vomiting, abdominal pain. States she is little leg swelling but denies significant increase. States she recently traveled back from [place] where she saw her naturopathic doctor arriving home last night; patient drove. Patient does states she been taking her home medications and is on a blood thinner. No acute fever reported but some generalized weakness. Patient states she is currently with minimal to no chest pressure at this time. REVIEW OF SYSTEMS: A total of 10 review of systems was obtained and negative except as stated above in the HPI. PAST MEDICAL HISTORY: As noted above MEDICATIONS: Reviewed home medications including Eliquis SOCIAL HISTORY: Lives at home, non-smoker PHYSICAL EXAM: GENERAL: alert and oriented in no acute distress on stretcher Head: normocephalic and atraumatic EYES: No injection, discharge or icterus. NECK: Trachea midline. LUNGS: Airway patent. No retractions. HEART: Irregular tachycardic rate and rhythm. No chest wall tenderness ABDOMEN: Soft and non-tender, without guarding or rebound. SKIN: Acyanotic, warm, dry, without rashes EXTREMITIES: Without swelling, tenderness or deformity NEUROLOGICAL: No focal deficits. No aphasia. No facial droop or slurred speech. EK beats run atrial fibrillation with some anterior repolarization changes and inferior lateral T wave inversions noted. CONTINUOUS CARDIAC MONITORING: was ordered and showed a heart rate of 78 bpm in atrial fibrillation Patient's laboratory studies and imaging reviewed. Differential includes Infection, dehydration, metabolic abnormality, hypo/hyperglycemia, electrolyte disturbance, anemia, hypoxia, cardiac sources, intracerebral event, toxicologic, neurologic, as well as other pathologies. IMPRESSION/MEDICAL DECISION MAKING: Patient presents with new oxygen requirement over the last day or so recent travel and some chest pressure complaints earlier. Initially EMS reports rapid A. fib and appears to be in A. fib here. Chest pressure symptoms have improved with oxygen but question of rate dependent demand is going on causing some anginal symptoms earlier. Covid test was sent. X-ray was obtained in addition to laboratory studies. Chest x-ray per radiology questions atelectasis versus pleural effusions with some pulmonary edema. Patient without significant leuk ocytosis and mild anemia noted. Rapid Covid test returns negative. D-dimer is mildly elevated which she is anticoagulated on Eliquis lowering suspicion for VTE. Lactate is 2.1 and troponin is elevated 0.061. Question is related demand to her A. fib. Procalcitonin elevated 0.71. No transaminitis noted. Renal function with creatinine of 2.48 noted unsure if is acutely new or not as last blood work here more than a year old showed a creatinine in the mid ones. Hypokalemia noted today. Patient reassessment still on some small amount of nasal cannula oxygen which is new for her and does not complain of any chest pressure at this time. Given the symptoms believe admission is warranted with a new oxygen requirement. X-ray questions some pulmonary edema and likely some fluid overload but given renal function will avoid aggressive diuresis at this point. Patient given IV potassium here given the elevated procalcitonin and her general illness given a dose of ceftriaxone for broad coverage pending further culture results. UA still pending at this time as well. The hospitalist be c ontacted. DIAGNOSIS: Shortness of breath, chest pressure, elevated troponin, new onset atrial fibri llation with rapid ventricular response, hypokalemia DISPOSITION: Hospitalist will evaluate Patient was agreeable with this plan. Critical Care I have personally spent 31 minutes of critical care time in the direct management of this patient. This includes bedside care, interpretation of diagnostic studies, and testing, discussion with consultants, patient, and family members, and other required patient management activities. These 31 minutes is in excess of all separately billable procedures. Past Med/Surg History Medical History Aortic stenosis Atrial fibrillation HTN (hypertension) Hypertension Pre-diabetes TIA (transient ischemic attack) Social History Smoking Status: Never smoker Hx Alcohol Use: No Hx Substance Use: No Preferred Language: Slovak Communication Ability: Effective Beliefs That Will Affect Care: None marital status: Current Living Situation: Family Feels Safe at Home: Yes Assistive Devices: None Allergies Allergies Allergy/AdvReac Type Severity Reaction Status Date / Time No Known Allergies Allergy Unverified 02/02/20 10:04 Home Meds Home Medications Medication Instructions Recorded Confirmed apixaban [Eliquis] 5 mg PO BID 02/02/20 02/02/20 bumetanide 2 mg PO DAILY 02/02/20 02/02/20 ferrous sulfate 325 mg PO BID 02/02/20 02/02/20 omeprazole 40 mg PO DAILY 02/02/20 02/02/20 Results & Data (ED) Vital Signs Vital Signs - 24 hr 02/02/20 09:21 02/02/20 09:34 02/02/20 09:42 Temperature 36.4 C L Temperature Source Oral Pulse Rate 85 83 Pulse Rate [Apical] Pulse Rhythm Irregular Irregular Pulse Strength Normal Respiratory Rate 20 20 Respiratory Effort / Characteristics Non-Labored Spontaneous Respiratory Depth Normal Respiratory Pattern Regular Blood Pressure 99/69 L Blood Pressure [Left Arm] Blood Pressure Mean 79 Blood Pressure Mean [Left Arm] Blood Pressure Position Sitting Pulse Oximetry 93 88 L 93 Oxygen Delivery Method Room Air Room Air Nasal Cannula Room Air Oxygen Flow Rate 0 2 Sepsis Recent Fever Within 48 Hours No Sepsis New/Unexplained Change in Mental Status No Sepsis Action Taken by Nursing No Action Required Oxygen Flow Rate - Titration 2 2 Pulse Oximetry Post Tiitration 94 94 02/02/20 11:34 Temperature Temperature Source Pulse Rate Pulse Rate [Apical] 88 Pulse Rhythm Pulse Strength Respiratory Rate 18 Respiratory Effort / Characteristics Respiratory Depth Respiratory Pattern Blood Pressure Blood Pressure [Left Arm] 114/57 L Blood Pressure Mean Blood Pressure Mean [Left Arm] 76 Blood Pressure Position Pulse Oximetry 99 Oxygen Delivery Method Nasal Cannula Oxygen Flow Rate 2 Sepsis Recent Fever Within 48 Hours Sepsis New/Unexplained Change in Mental Status Sepsis Action Taken by Nursing Oxygen Flow Rate - Titration Pulse Oximetry Post Tiitration Laboratory Data Result diagrams: 02/02/20 09:42 02/02/20 09:42 Lab Results 02/02/20 02/02/20 02/02/20 Range/Units 09:35 09:35 09:42 WBC 9.04 (4.8-10.8) K/uL RBC 2.90 L (4.2-5.4) M/uL Hgb 8.8 L (12.0-16.0) g/dL Hct 26.1 L (37-47) % MCV 90.0 (80-100) fL MCH 30.3 (25-34) pg MCHC 33.7 (32-36) g/dL RDW Std Deviation 53.4 H (36.4-46.3) fL RDW Coeff of Pam 16.1 H (11.5-14.5) % Plt Count 276 (130-400) K/uL MPV 9.4 (7.4-10.4) fL Immature Gran % (Auto) 0.3 % Neut % (Auto) 69.0 % Lymph % (Auto) 15.8 % Vernon % (Auto) 12.4 % Eos % (Auto) 2.3 % Baso % (Auto) 0.2 % Neut # (Auto) 6.23 (1.4-6.5) K/uL Lymph # (Auto) 1.43 (1.2-3.4) K/uL Vernon # (Auto) 1.12 H (0.11-0.59) K/uL Eos # (Auto) 0.21 (0-0.5) K/uL Baso # (Auto) 0.02 (0-0.2) K/uL Immature Gran # (Auto) 0.03 H (0.00-0.02) K/uL PT (9.0-12.0) Seconds INR (0.9-1.1) D-Dimer (0-500) ug/L FEU Sodium (136-145) mmol/L Potassium (3.5-5.1) mmol/L Chloride (98-107) mmol/L Carbon Dioxide (21-32) mmol/L Anion Gap (3-11) BUN (7-18) mg/dl Creatinine (0.6-1.2) mg/dl Est Cr Clr Drug Dosing ml/min Est GFR ( Amer) Est GFR (Non-Af Amer) BUN/Creatinine Ratio (10-20) Glucose (70-99) mg/dl Lactate (0.4-2.0) mmol/L Calcium (8.5-10.1) mg/dl Magnesium (1.8-2.4) mg/dl Total Bilirubin (0.2-1) mg/dl AST (15-37) U/L ALT (12-78) U/L Alkaline Phosphatase (45-117) U/L Troponin I (0-0.045) ng/ml NT-Pro-B Natriuret Pep (0-900) pg/ml Total Protein (6.4-8.2) gm/dl Albumin (3.4-5.0) gm/dl Globulin (2.5-4.0) gm/dl Albumin/Globulin Ratio (0.9-2) Lipase (73-393) U/L Procalcitonin (0-0.5) ng/ml TSH (0.300-4.500) uIu/ml COVID-19 Eval Order Covid19 [facility]Now [facility] SARS-CoV-2, RNA, NAAT NEGATIVE (NEGATIVE) 02/02/20 02/02/20 02/02/20 Range/Units 09:42 09:42 09:42 WBC (4.8-10.8) K/uL RBC (4.2-5.4) M/uL Hgb (12.0-16.0) g/dL Hct (37-47) % MCV (80-100) fL MCH (25-34) pg MCHC (32-36) g/dL RDW Std Deviation (36.4-46.3) fL RDW Coeff of Pam (11.5-14.5) % Plt Count (130-400) K/uL MPV (7.4-10.4) fL Immature Gran % (Auto) % Neut % (Auto) % Lymph % (Auto) % Vernon % (Auto) % Eos % (Auto) % Baso % (Auto) % Neut # (Auto) (1.4-6.5) K/uL Lymph # (Auto) (1.2-3.4) K/uL Vernon # (Auto) (0.11-0.59) K/uL Eos # (Auto) (0-0.5) K/uL Baso # (Auto) (0-0.2) K/uL Immature Gran # (Auto) (0.00-0.02) K/uL PT 10.9 (9.0-12.0) Seconds INR 1.0 (0.9-1.1) D-Dimer 820 H* (0-500) ug/L FEU Sodium 139 (136-145) mmol/L Potassium 2.7 L (3.5-5.1) mmol/L Chloride 104 (98-107) mmol/L Carbon Dioxide 27 (21-32) mmol/L Anion Gap 8.0 (3-11) BUN 46 H (7-18) mg/dl Creatinine 2.48 H (0.6-1.2) mg/dl Est Cr Clr Drug Dosing 19.4 ml/min Est GFR ( Amer) 21.3 Est GFR (Non-Af Amer) 18.4 BUN/Creatinine Ratio 18.4 (10-20) Glucose 199 H (70-99) mg/dl Lactate 2.1 H* (0.4-2.0) mmol/L Calcium 9.0 (8.5-10.1) mg/dl Magnesium 2.3 (1.8-2.4) mg/dl Total Bilirubin 0.5 (0.2-1) mg/dl AST 17 (15-37) U/L ALT 22 (12-78) U/L Alkaline Phosphatase 86 (45-117) U/L Troponin I 0.061 H* (0-0.045) ng/ml NT-Pro-B Natriuret Pep (0-900) pg/ml Total Protein 6.8 (6.4-8.2) gm/dl Albumin 2.7 L (3.4-5.0) gm/dl Globulin 4.1 H (2.5-4.0) gm/dl Albumin/Globulin Ratio 0.7 L (0.9-2) Lipase 168 (73-393) U/L Procalcitonin (0-0.5) ng/ml TSH 3.180 (0.300-4.500) uIu/ml COVID-19 Eval Order SARS-CoV-2, RNA, NAAT (NEGATIVE) 02/02/20 02/02/20 Range/Units 09:42 09:42 WBC (4.8-10.8) K/uL RBC (4.2-5.4) M/uL Hgb (12.0-16.0) g/dL Hct (37-47) % MCV (80-100) fL MCH (25-34) pg MCHC (32-36) g/dL RDW Std Deviation (36.4-46.3) fL RDW Coeff of Pam (11.5-14.5) % Plt Count (130-400) K/uL MPV (7.4-10.4) fL Immature Gran % (Auto) % Neut % (Auto) % Lymph % (Auto) % Vernon % (Auto) % Eos % (Auto) % Baso % (Auto) % Neut # (Auto) (1.4-6.5) K/uL Lymph # (Auto) (1.2-3.4) K/uL Vernon # (Auto) (0.11-0.59) K/uL Eos # (Auto) (0-0.5) K/uL Baso # (Auto) (0-0.2) K/uL Immature Gran # (Auto) (0.00-0.02) K/uL PT (9.0-12.0) Seconds INR (0.9-1.1) D-Dimer (0-500) ug/L FEU Sodium (136-145) mmol/L Potassium (3.5-5.1) mmol/L Chloride (98-107) mmol/L Carbon Dioxide (21-32) mmol/L Anion Gap (3-11) BUN (7-18) mg/dl Creatinine (0.6-1.2) mg/dl Est Cr Clr Drug Dosing ml/min Est GFR ( Amer) Est GFR (Non-Af Amer) BUN/Creatinine Ratio (10-20) Glucose (70-99) mg/dl Lactate (0.4-2.0) mmol/L Calcium (8.5-10.1) mg/dl Magnesium (1.8-2.4) mg/dl Total Bilirubin (0.2-1) mg/dl AST (15-37) U/L ALT (12-78) U/L Alkaline Phosphatase (45-117) U/L Troponin I (0-0.045) ng/ml NT-Pro-B Natriuret Pep 8924 H (0-900) pg/ml Total Protein (6.4-8.2) gm/dl Albumin (3.4-5.0) gm/dl Globulin (2.5-4.0) gm/dl Albumin/Globulin Ratio (0.9-2) Lipase (73-393) U/L Procalcitonin 0.71 H (0-0.5) ng/ml TSH (0.300-4.500) uIu/ml COVID-19 Eval Order SARS-CoV-2, RNA, NAAT (NEGATIVE) Administered Medications Discontinued Medications Azithromycin (Azithromycin 250 Mg Tab) 500 mg PO NOW STA Stop: 02/02/20 12:35 Last Admin: 02/02/20 13:04 Dose: 500 mg Documented by: [id number] Ceftriaxone Sodium (Rocephin) 2,000 mg in 70 mls @ 140 mls/hr IV NOW STA Stop: 02/02/20 11:12 Last Infusion: 02/02/20 12:29 Dose: 0 mls/hr Documented by: [id number] Admin: 02/02/20 11:58 Dose: 140 mls/hr Documented by: [id number] Potassium Chloride (K Mina / Wtr) 10 meq in 100 mls @ 100 mls/hr IV Q1H [place] Stop: 02/02/20 12:44 Last Infusion: 02/02/20 14:44 Dose: 100 mls/hr Documented by: [id number] Infusion: 02/02/20 13:04 Dose: 0 mls/hr Documented by: [id number] Admin: 02/02/20 13:04 Dose: 100 mls/hr Documented by: [id number] Infusion: 02/02/20 12:59 Dose: 0 mls/hr Documented by: [id number] Admin: 02/02/20 11:58 Dose: 100 mls/hr Documented by: [id number] Discharge Plan Visit Data Chief Complaint: Chest Pain Stated Complaint: Chest pain hypoxia afib fever ED Provider: Gordy Galeas Discharge Problem: Hypoxia, Hypokalemia, Atrial fibrillation with rapid ventricular response, Pressure in chest, Elevated troponin Patient Disposition: Admitted As Inpatient Discharge Instructions Interventions: ED Discharge Assessment Last Done: 02/02/20 14:08
[2020-02-02 10:19] LABS: Prothrombin Time 10.9 Seconds (9.0-12.0)
[2020-02-02 10:20] LABS: Albumin Level 2.7 gm/dl (3.4-5.0); BUN Creatinine Ratio 18.4 (10-20); Creatinine Clr Calc Pharmacy 19.4 ml/min; Est GFR (African American) 21.3; Est GFR (Non-African American) 18.4; Magnesium 2.3 mg/dl (1.8-2.4); Potassium 2.7 mmol/L (3.5-5.1)
[2020-02-02 10:21] LABS: D Dimer 820 ug/L FEU (0-500)
[2020-02-02] MEDS ORDERED: cefTRIAXone SODIUM 2,000 MG/70 ML BAG IV STA (10:43)
[2020-02-02 10:44] LABS: Albumin Globulin Ratio 0.7 (0.9-2); Bilirubin,Total 0.5 mg/dl (0.2-1); Globulin 4.1 gm/dl (2.5-4.0); Thyroid Stimulating Hormone 3.18 uIu/ml (0.300-4.500); Total Protein 6.8 gm/dl (6.4-8.2); Troponin I 0.061 ng/ml (0-0.045)
--- NOTE | 2020-02-02 11:16 | History & Physical Report ---
Date of Service February 02, 2020 Assessment & Plan (1) Hypoxia: Without respiratory failure. Unlikely pulmonary embolism given Eliquis use (unable to get CT for PE with current renal function). Suspect secondary to CAP as below. Possible pulmonary edema on CXR however pleural effusion appears relatively chronic, hypotensive and examination hypovolemic. Will hold further bumex. BNP added to labs. Aim O2 sats > 94% in setting of possible ACS. (2) Community acquired pneumonia: Suspected Ceftriaxone plus azithromycin Follow-up blood cultures (3) Jaw pain: ACS vs. more likely demand ischemia Serial troponins ASA given via EMS - although not documented patient is adamant she was given x4 ASA. TTE urgent Continue Eliquis 5g PO BID (4) Atrial fibrillation: Unclear if chronic vs. paroxysmal. Per patient new diagnosis as of September. HIM request for outpatient notes. Appears relatively rate controlled at the present time without any rate controlling medication. (5) Aortic stenosis: Mild on previous echocardiogram in August 2018. Significant murmur with late opening on exam. TTE as above. (6) Pre-diabetes: On no outpatient medication for this. HbA1c with a.m. labs. NovoLog Goal BSG Range: Low 110 mg/dL, High 140 mg/dL Correction Factor: 35 mg/dL/unit No carb coverage (7) Hyperglycemia: As above for prediabetes (8) Hypokalemia: 20 meq IV replacement given in ER. Monitor with next troponin draw (9) Elevated serum creatinine: Unknown recent baseline potential NEETA with current Cr 2.48 and previously 1.36 on discharge in August 2018. Hypovolemic on exam with dry mucus membranes in setting of bumex use. Suggest pre-renal. Given possible pulmonary edema on CXR will avoid IV fluids and rehydrate with PO liquids and holding bumex (notably already took this morning). IV fluids boluses for hypotension if needed. BMP with AM labs. (10) Normocytic anemia: On ferrous sulfate as outpatient so presumably has an iron deficient anemia chronically Unknown baseline Possibly contributing to his shortness of breath Fecal occult blood pending - no melena or bright red blood in stool noted by patient Serial H&H with type and screen Basic anemia work-up with a.m. labs -transferrin saturation, ferritin, B12, folate, reticulocyte count (11) DVT prophylaxis: Continue apixaban as above Admission and Anticipated Discharge Date Admission Date: 02/02/2020 History of Present Illness Chief Complaint: Shortness of breath Primary Care Provider: Hi Henderson MD Bety Chaidez is a 74-year-old female who presents to the ER with shortness of breath, jaw and left arm pain. She reports chronic shortness of breath on exertion for the last 2 years. No specific diagnosis she relates to this. However more recently has been getting progressively short of breath over the last 4 days. This coincided with a car trip to [place] on Saturday night. While there she was started on oxygen by a community member as she was feeling short of breath especially while lying flat. Unknown if her oxygen saturations were measured at that time. She wore the oxygen some of the time during the car journey home yesterday. She generally felt okay while sitting still but very short of breath on minimal exertion. The oxygen ran out around 3am and this morning EMS noted her O2 sats at 88%. She denies any cough however her son and EMS report a productive cough over the last 2 days. This morning approximately 7 AM she noted palpitations with associated jaw and left arm pain which lasted for approximately an hour until EMS arrived. She was given x4 aspirin by EMS. Stare 7am, finished around 8am. Shortness of breath stared 4 days ago, Usually gets SOB if she does too much on exertion. Associated palpitations. No nausea or sweating. No fever, chills cough, cough, sore throat, nasal congestion, loss of taste or smell, diarrhea, abdominal pain. No known COVID-19 exposure. The patient reports taking all her usual medications this morning. In the ER chest x-ray was concerning for pulmonary edema with small bilateral pleural effusions. Procalcitonin 0.71. She was given 2 g IV ceftriaxone due to concern for pneumonia. Potassium 2.7. IV potassium supplementation given. EKG showed atrial fibrillation with RVR, heart rate resolved without medication. Allergies Allergy/AdvReac Type Severity Reaction Status Date / Time No Known Allergies Allergy Unverified 02/02/20 10:04 Home Medications Medication Instructions Recorded Confirmed Type apixaban [Eliquis] 5 mg PO BID 02/02/20 02/02/20 History bumetanide 2 mg PO DAILY 02/02/20 02/02/20 History ferrous sulfate 325 mg PO BID 02/02/20 02/02/20 History omeprazole 40 mg PO DAILY 02/02/20 02/02/20 History Past Med/Surg History Medical History Aortic stenosis Atrial fibrillation HTN (hypertension) Hypertension Pre-diabetes TIA (transient ischemic attack) Social History Smoking Status: Never smoker Hx Alcohol Use: No Hx Substance Use: No Preferred Language: Malawian Communication Ability: Effective Beliefs That Will Affect Care: None marital status: Current Living Situation: Family Feels Safe at Home: Yes Assistive Devices: None Review of Systems Review of Systems: All systems reviewed & are unremarkable except as noted in HPI & below Gastrointestinal: no abdominal pain, no belching, no heartburn, no nausea, no vomiting, no dysphagia, no constipation, no diarrhea/loose stools, no blood in stools and no melena Physical Exam Constitutional: well developed and well nourished; no acute distress Eyes: PERRL, conjunctivae normal, anicteric sclerae ENMT: Ears: no external ear abnormality Nose: no external nose abnormality Mouth: + dry oral mucous membranes Neck: trachea midline, no thyromegaly Respiratory: normal respiratory effort; no respiratory distress Auscultation: + crackles (Bibasal); no diminished lung sounds and no wheezes Cardiovascular: Rate/Rhythm: + irregularly irregular Heart Sounds: + murmur (Systolic throughout) Vessels: no JVD Extremities: normal capillary refill and + pedal edema (Trace ankles bilaterally equal); no calf tenderness Gastrointestinal (Abdomen): normal bowel sounds, soft, nontender, no hepatosplenomegaly Musculoskeletal: no cyanosis or clubbing, extremities motor strength 5/5 Skin: no rashes, warm and dry Neurologic: moves all extremities and awake; no focal motor deficits and not confused Speech / Cognition: normal speech Motor/Sensory: no tremor and no sensory deficit Psychiatric: A+Ox3, euthymic affect Genitourinary: no CVA tenderness Results & Data Results & Data ([facility]) Vital Signs (Past 12 Hours) Vital Signs Temp Pulse Resp BP Pulse Ox 02/02/20 09:42 83 20 93 02/02/20 09:34 88 L 02/02/20 09:21 36.4 C L 85 20 99/69 L 93 Laboratory Results Hemoglobin 8.8 Potassium level 2.7 Troponin 0.061 Diagnostic Findings XR chest 1V portable IMPRESSION: 1. Above findings suggest pulmonary edema with small bilateral pleural effusions. 2. Bibasilar densities favor atelectasis from the pleural effusions. A superimposed pneumonia cannot be excluded. Medications Administered ER medications given: Ceftriaxone 2 g IV Potassium chloride 20 meq IV ECG Rate (beats per minute): 96 Rhythm: atrial fibrillation Findings: + acute ischemic change (ST and T wave inversion in lateral leads) Comparison ECG Date: from (September 16, 2018) Change: the following changes noted (Atrial fibrillation has replaced sinus bradycardia) Code Status & VTE Plan Code Status DNR, all treatment outside of a cardiac arrest VTE Prophylaxis Plan VTE Prophylaxis will be ordered: Yes PG Care Time/CCT Total # of Minutes Spent Total Time Spent with Patient: Total time spent is greater than 50% in coordination of care (as documented) at patient's floor/unit and/or counseling patient: Coding Level of Care Code 41964 Initial Inpt Care Lvl 3 Diagnoses Hypoxia R09.02 Community acquired pneumonia J18.9 Jaw pain R68.84 Atrial fibrillation I48.91 Aortic stenosis I35.0 Cardiac valve disease etiology: etiology unspecified Pre-diabetes R73.03 Hyperglycemia R73.9 Hypokalemia E87.6 Elevated serum creatinine R79.89 Normocytic anemia D64.9 DVT prophylaxis Z29.9 (1) Aortic stenosis Cardiac valve disease etiology: etiology unspecified Qualified Code(s): I35.0 - Nonrheumatic aortic (valve) stenosis
[2020-02-02] MEDS: POTASSIUM CHLORIDE / WTR 10 MEQ/100 ML PLCT IV SCH ×2 (11:58→13:04)
[2020-02-02] MEDS ORDERED: AZITHROMYCIN 250 MG TAB PO STA (12:34)
[2020-02-02] MEDS ORDERED: POLYETHYLENE (MIRALAX) 17 GM PACK PO PRN (14:51)
[2020-02-02] MEDS ORDERED: ACETAMINOPHEN 325 MG TAB PO PRN (14:51)
[2020-02-02] MEDS ORDERED: DEXTROSE 50% 50 ML SYRINGE IV PRN (14:51)
[2020-02-02] MEDS ORDERED: ONDANSETRON INJ 2 MG/ML 2 ML VIAL IV PRN (14:51)
[2020-02-02] MEDS ORDERED: GLUCAGON FOR INJ 1 MG VIAL SQ PRN (14:51)
[2020-02-02] MEDS ORDERED: CARBOHYDRATES FOR HYPOGLYCEMIA PO PRN (14:51)
[2020-02-02] MEDS ORDERED: cefTRIAXone SODIUM 2,000 MG/70 ML BAG IV SCH (14:51)
[2020-02-02] MEDS ORDERED: GLUCOSE 40% GEL 15 GM TUBE PO PRN (14:51)
[2020-02-02] MEDS ORDERED: GLUCOSE 10 TABS/TUBE PO PRN (14:51)
--- NOTE | 2020-02-02 15:02 | Electrocardiogram Report ---
Test Reason : Blood Pressure : / mmHG Vent. Rate : 096 BPM Atrial Rate : 070 BPM P-R Int : 000 ms QRS Dur : 114 ms QT Int : 374 ms P-R-T Axes : 000 -17 155 degrees QTc Int : 472 ms Atrial fibrillation Incomplete left bundle block Abnormal ECG When compared with ECG of 16-SEP-2018 06:28, Significant changes have occurred Confirmed by Bashir Oglesby ([id number]) on 02/02/2020 3:02:06 PM Referred By: GATITO FRANK Confirmed By:Bashir Oglesby
--- NOTE | 2020-02-02 16:09 | XCELERA ---
[id number]
[2020-02-02 16:32] LABS: Hematocrit (blood only) 25.7 % (37-47); Hemoglobin 8.7 g/dL (12.0-16.0)
[2020-02-02 16:50] LABS: Potassium 3.1 mmol/L (3.5-5.1)
[2020-02-02 17:00] LABS: Troponin I 0.451 ng/ml (0-0.045)
[2020-02-02] MEDS: INSULIN ASPART 100 UNITS/ML 3 ML PEN SC SCH ×2 (17:00→21:00)
[2020-02-02] MEDS: FERROUS SULFATE 325 MG TAB PO SCH (18:54)
[2020-02-02] MEDS: METOPROLOL TARTRATE 25 MG TAB PO SCH (21:27)
[2020-02-02] MEDS: APIXABAN 5 MG TABLET PO SCH (21:27)
[2020-02-02] MEDS ORDERED: MELATONIN 3 MG TAB PO PRN (21:48)
[2020-02-02 23:04] LABS: Appearance Urine Clear (Clear); Bilirubin Urine Negative (Negative); Blood Urine Negative (Negative); Color Urine Yellow; Glucose Urine UA Negative (Negative); Ketones Urine Negative (Negative); Leukocyte Esterase Urine 1+ (Negative); Nitrite Urine Negative (Negative); Protein Urine 2+ (Negative); Urobilinogen Urine Negative (Negative)
[2020-02-02 23:22] LABS: Bacteria Urine Negative (Negative); Epithelial Cell Urine 0-5 /lpf (0-5); RBC Urine 0-4 /hpf (0-4)
[2020-02-02 23:23] LABS: Renal Epithelial Cells Urine 0-5 /lpf (0-5)
[2020-02-03 06:35] LABS: Basophils # (auto) 0.02 K/uL (0-0.2); Basophils % (auto) 0.3 %; Eosinophils # (auto) 0.48 K/uL (0-0.5); Eosinophils % (auto) 7.3 %; Hematocrit (blood only) 26.1 % (37-47); Hemoglobin 8.7 g/dL (12.0-16.0); Immature Granulocytes # (auto) 0.01 K/uL (0.00-0.02); Immature Granulocytes % (auto) 0.2 %; Lymphocytes # (auto) 1.68 K/uL (1.2-3.4); Lymphocytes % (auto) 25.4 %; Mean Corpuscular Hgb Conc 33.3 g/dL (32-36); Mean Platelet Volume 9.4 fL (7.4-10.4); Monocytes # (auto) 0.99 K/uL (0.11-0.59); Neutrophils # (auto) 3.44 K/uL (1.4-6.5); Neutrophils % (auto) 51.8 %; Platelet Count 286 K/uL (130-400); RDW Coefficient of Variation 15.9 % (11.5-14.5); RDW Standard Deviation 52.6 fL (36.4-46.3); Reticulocyte % 1.7 % (0.5-2.0); Reticulocytes # 0.05 10^6/uL (0.02-0.10); White Blood Count 6.62 K/uL (4.8-10.8)
[2020-02-03 07:03] LABS: BUN Creatinine Ratio 19.3 (10-20); Calcium 9.1 mg/dl (8.5-10.1); Creatinine Clr Calc Pharmacy 19.4 ml/min; Est GFR (African American) 20.8; Est GFR (Non-African American) 17.9
[2020-02-03 07:22] LABS: Ferritin 206.8 ng/ml (8-388); Troponin I 0.364 ng/ml (0-0.045)
[2020-02-03 07:30] LABS: Folate (Folic Acid) > 20.00 ng/ml (>5.38); Vitamin B12 > 2000 pg/ml (193-986)
[2020-02-03 08:14] LABS: Estimated Average Glucose 111 mg/dl; Hemoglobin A1C 5.5 % (4.5-5.6)
[2020-02-03] MEDS ORDERED: POTASSIUM CHLORIDE CRTAB 20 MEQ TABCR PO ONE (08:15)
[2020-02-03] MEDS: FERROUS SULFATE 325 MG TAB PO SCH ×2 (08:34→18:22)
[2020-02-03] MEDS: METOPROLOL TARTRATE 25 MG TAB PO SCH ×3 (08:35→20:38)
[2020-02-03] MEDS: PANTOprazole 40 MG TAB PO SCH (08:35)
[2020-02-03] MEDS: APIXABAN 5 MG TABLET PO SCH ×2 (08:35→20:36)
[2020-02-03] MEDS: INSULIN ASPART 100 UNITS/ML 3 ML PEN SC SCH ×4 (08:38→20:39)
[2020-02-03] MEDS: hydrALAZINE HCL 20 MG/ML VIAL IV PRN (08:57)
[2020-02-03] MEDS ORDERED: AZITHROMYCIN 250 MG TAB PO SCH (09:00)
--- NOTE | 2020-02-03 11:00 | Hospitalist Progress Note ---
Date of Service February 03, 2020 Assessment & Plan (1) Acute on chronic diastolic CHF (congestive heart failure): Bety Chaidez is a 74y/o F with PMH significant for mild aortic stenosis, atrial fibrillation, chronic heart failure with preserved ejection fraction, and HTN; who presented following continued worsening of her shortness of breath and fatigue over the last several days Acute CHF: - BNP on admission 8924 - CXR demonstrating concerns for increased pulmonary vascular congestion - Echo demonstrated moderate aortic stenosis, with EF 60-65%, normal LV function, no regional wall motion abnormalities - Cardiology consulted: recommended continued diuresis, likely cause of minor Troponin elevation - received 2mg IV Bumex today - will check BMP in AM Atrial fibrillation with RVR: - spontaneously converted in ER - continue Eliquis BID - continue Lopressor 12.5mg BID with hold parameters Elevated Creatinine: - Cr on admission 2.48, raise this AM to 2.53 - etiology unknown, as patient simultaneously appears clinically dry but with pulmonary vascular congestion - continue to follow Aortic stenosis: - Echo demonstrated progression of aortic stenosis from last study HTN: - isolated systolic HTN throughout the night and day, up to SBP of 208 - patient was previously on Amlodipine 10mg daily but this was discontinued for unknown reasons - continue Lopressor 12.5mg BID - Hydralazine 10mg Q4h PRN SBP >180 - consider re-addition of anti-HTN regiment that was previously stopped (2) Atrial fibrillation with rapid ventricular response: (3) Hypoxia: (4) Elevated serum creatinine: (5) Aortic stenosis: (6) HTN (hypertension): Admission and Anticipated Discharge Date Admission Date: February 02, 2020 Supervising Physician Co-Signing Physician Notes I personally examined the patient and verified all bishop points of history and exam, discussed case, and agree with decision making with Dr Arthur. feeling better breathing better than before. weight gain, more dyspnea. cough w clear sputum. no f/c/s. lower back itchy vitals noted nad heent nc at mmm lungs faintly diminished bibasilar no r/r/w good effort. lower back w dry skin and punctate lesions c/w eczema acute on chronic diastolic chf -eats a lot of salty foods, and progressed some -med management, diuresis. -after further review doesn't appear to need abx - ie further clinical picture not c/w pneumonia -CKD4 likely a contributor chronic afib - rate controlled, anticoagulated otherwise as above Subjective On review of patient's symptoms, patient has been experiencing progressive shortness of breath and fatigue over the last year to year and a half. Over this time she has noticed a 10lb weight gain, that she thinks is entirely fluid. On review of her diet, she eats large amounts of salt containing foods daily including canned meats, soup broths, sweet potatoes with salt and butter. Currently feels better than she did prior to coming into the hospital, thinks this was further improved following receiving diuretic. Faithfully takes her medications daily. Traveled to [place] in efforts to have this shortness of breath and fatigue improved by naturopathic doctor but when they could not help she traveled back here. Review of Systems Review of Systems: All systems reviewed & are unremarkable except as noted in Subjective Physical Exam Constitutional: WD/WN, vitals as above Eyes: PERRL, conjunctivae normal, anicteric sclerae Respiratory: normal respiratory effort; no respiratory distress and no labored breathing Auscultation: + rhonchi (R>L); no crackles, no rales and no wheezes Cardiovascular: Rate/Rhythm: regular rate and regular rhythm Heart Sounds: + murmur (systolic ejection murmur best over FLO border); no gallop and no cardiac rub Extremities: + pedal edema (mild 1+ pitting b/l) Gastrointestinal (Abdomen): normal bowel sounds, soft, nontender, no hepatosplenomegaly Neurologic: deep tendon reflexes 2+ bilaterally and moves all extremities Psychiatric: Orientation: alert and oriented x 3 Results & Data Results & Data ([facility]) Vital Signs (Past 12 Hours) Vital Signs Temp Pulse Pulse Resp BP BP Pulse Ox 02/03/20 07:25 36.5 C 59 L 18 208/82 H 96 02/03/20 07:05 65 02/03/20 06:19 68 02/03/20 06:18 20 95 02/03/20 03:23 36.7 C 55 L 16 173/79 H 93 02/02/20 23:10 36.3 C L 53 L 18 137/51 L 92 Laboratory Results 02/03/20 02/03/20 02/03/20 Range/Units 07:31 06:23 06:23 WBC (4.8-10.8) K/uL RBC (4.2-5.4) M/uL Hgb (12.0-16.0) g/dL Hct (37-47) % MCV (80-100) fL MCH (25-34) pg MCHC (32-36) g/dL RDW Std Deviation (36.4-46.3) fL RDW Coeff of Pam (11.5-14.5) % Plt Count (130-400) K/uL MPV (7.4-10.4) fL Immature Gran % (Auto) % Neut % (Auto) % Lymph % (Auto) % [place] % (Auto) % Eos % (Auto) % Baso % (Auto) % Reticulocyte % (Auto) (0.5-2.0) % Neut # (Auto) (1.4-6.5) K/uL Lymph # (Auto) (1.2-3.4) K/uL [place] # (Auto) (0.11-0.59) K/uL Eos # (Auto) (0-0.5) K/uL Baso # (Auto) (0-0.2) K/uL Reticulocyte # (0.02-0.10) 10^6/uL Immature Gran # (Auto) (0.00-0.02) K/uL Sodium (136-145) mmol/L Potassium (3.5-5.1) mmol/L Chloride (98-107) mmol/L Carbon Dioxide (21-32) mmol/L Anion Gap (3-11) BUN (7-18) mg/dl Creatinine (0.6-1.2) mg/dl Est Cr Clr Drug Dosing ml/min Est GFR ( Amer) Est GFR (Non-Af Amer) BUN/Creatinine Ratio (10-20) Glucose (70-99) mg/dl POC Glucose 100 H (70-99) mg/dl Estimat Average Glucose 111 mg/dl Hemoglobin A1c 5.5 (4.5-5.6) % Calcium (8.5-10.1) mg/dl Iron (35-150) mcg/dl Transferrin (200-360) mg/dl Transferrin % Sat (15-50) % Ferritin (8-388) ng/ml Troponin I (0-0.045) ng/ml NT-Pro-B Natriuret Pep (0-900) pg/ml Triglycerides (0-150) mg/dl Cholesterol (0-200) mg/dl LDL Cholesterol, Calc mg/dl VLDL Cholesterol, Calc mg/dl HDL Cholesterol mg/dl Cholesterol/HDL Ratio Vitamin B12 > 2000 H (193-986) pg/ml Folate > 20.00 (>5.38) ng/ml Urine Color Urine Appearance (Clear) Urine pH (4.5-7.5) Ur Specific [place] (1.000-1.030) Urine Protein (Negative) Urine Glucose (UA) (Negative) Urine Ketones (Negative) Urine Blood (Negative) Urine Nitrite (Negative) Urine Bilirubin (Negative) Urine Urobilinogen (Negative) Ur Leukocyte Esterase (Negative) U Hyaline Cast (Auto) (0-5) /lpf Urine RBC (0-4) /hpf Urine WBC (0-5) /hpf Ur Epithelial Cells (0-5) /lpf Ur Renal Epithelial Cell (0-5) /lpf Urine Bacteria (Negative) Granular Casts (0) /lpf Blood Type Antibody Screen 02/03/20 02/03/20 02/02/20 Range/Units 06:23 06:23 22:50 WBC 6.62 (4.8-10.8) K/uL RBC 2.90 L (4.2-5.4) M/uL Hgb 8.7 L (12.0-16.0) g/dL Hct 26.1 L (37-47) % MCV 90.0 (80-100) fL MCH 30.0 (25-34) pg MCHC 33.3 (32-36) g/dL RDW Std Deviation 52.6 H (36.4-46.3) fL RDW Coeff of Pam 15.9 H (11.5-14.5) % Plt Count 286 (130-400) K/uL MPV 9.4 (7.4-10.4) fL Immature Gran % (Auto) 0.2 % Neut % (Auto) 51.8 % Lymph % (Auto) 25.4 % [place] % (Auto) 15.0 % Eos % (Auto) 7.3 % Baso % (Auto) 0.3 % Reticulocyte % (Auto) 1.7 (0.5-2.0) % Neut # (Auto) 3.44 (1.4-6.5) K/uL Lymph # (Auto) 1.68 (1.2-3.4) K/uL [place] # (Auto) 0.99 H (0.11-0.59) K/uL Eos # (Auto) 0.48 (0-0.5) K/uL Baso # (Auto) 0.02 (0-0.2) K/uL Reticulocyte # 0.05 (0.02-0.10) 10^6/uL Immature Gran # (Auto) 0.01 (0.00-0.02) K/uL Sodium 138 (136-145) mmol/L Potassium 3.0 L (3.5-5.1) mmol/L Chloride 102 (98-107) mmol/L Carbon Dioxide 27 (21-32) mmol/L Anion Gap 8.0 (3-11) BUN 49 H (7-18) mg/dl Creatinine 2.53 H (0.6-1.2) mg/dl Est Cr Clr Drug Dosing 19.4 ml/min Est GFR ( Amer) 20.8 Est GFR (Non-Af Amer) 17.9 BUN/Creatinine Ratio 19.3 (10-20) Glucose 93 (70-99) mg/dl POC Glucose (70-99) mg/dl Estimat Average Glucose mg/dl Hemoglobin A1c (4.5-5.6) % Calcium 9.1 (8.5-10.1) mg/dl Iron 41 (35-150) mcg/dl Transferrin 174 L (200-360) mg/dl Transferrin % Sat 17 (15-50) % Ferritin 206.8 (8-388) ng/ml Troponin I 0.364 H* (0-0.045) ng/ml NT-Pro-B Natriuret Pep (0-900) pg/ml Triglycerides 104 (0-150) mg/dl Cholesterol 246 H (0-200) mg/dl LDL Cholesterol, Calc 166 mg/dl VLDL Cholesterol, Calc 21 mg/dl HDL Cholesterol 59 mg/dl Cholesterol/HDL Ratio 4 Vitamin B12 (193-986) pg/ml Folate (>5.38) ng/ml Urine Color Yellow Urine Appearance Clear (Clear) Urine pH 5.0 (4.5-7.5) Ur Specific [place] 1.020 (1.000-1.030) Urine Protein 2+ H (Negative) Urine Glucose (UA) Negative (Negative) Urine Ketones Negative (Negative) Urine Blood Negative (Negative) Urine Nitrite Negative (Negative) Urine Bilirubin Negative (Negative) Urine Urobilinogen Negative (Negative) Ur Leukocyte Esterase 1+ H (Negative) U Hyaline Cast (Auto) 1-5 (0-5) /lpf Urine RBC 0-4 (0-4) /hpf Urine WBC 10-30 H (0-5) /hpf Ur Epithelial Cells 0-5 (0-5) /lpf Ur Renal Epithelial Cell 0-5 (0-5) /lpf Urine Bacteria Negative (Negative) Granular Casts 1-5 H (0) /lpf Blood Type Antibody Screen 02/02/20 02/02/20 02/02/20 Range/Units 20:59 16:05 16:05 WBC (4.8-10.8) K/uL RBC (4.2-5.4) M/uL Hgb (12.0-16.0) g/dL Hct (37-47) % MCV (80-100) fL MCH (25-34) pg MCHC (32-36) g/dL RDW Std Deviation (36.4-46.3) fL RDW Coeff of Pam (11.5-14.5) % Plt Count (130-400) K/uL MPV (7.4-10.4) fL Immature Gran % (Auto) % Neut % (Auto) % Lymph % (Auto) % [place] % (Auto) % Eos % (Auto) % Baso % (Auto) % [place]eticulocyte % (Auto) (0.5-2.0) % Neut # (Auto) (1.4-6.5) K/uL Lymph # (Auto) (1.2-3.4) K/uL [place] # (Auto) (0.11-0.59) K/uL Eos # (Auto) (0-0.5) K/uL Baso # (Auto) (0-0.2) K/uL Reticulocyte # (0.02-0.10) 10^6/uL Immature Gran # (Auto) (0.00-0.02) K/uL Sodium (136-145) mmol/L Potassium 3.1 L (3.5-5.1) mmol/L Chloride (98-107) mmol/L Carbon Dioxide (21-32) mmol/L Anion Gap (3-11) BUN (7-18) mg/dl Creatinine (0.6-1.2) mg/dl Est Cr Clr Drug Dosing ml/min Est GFR ( Amer) Est GFR (Non-Af Amer) BUN/Creatinine Ratio (10-20) Glucose (70-99) mg/dl POC Glucose 138 H (70-99) mg/dl Estimat Average Glucose mg/dl Hemoglobin A1c (4.5-5.6) % Calcium (8.5-10.1) mg/dl Iron (35-150) mcg/dl Transferrin (200-360) mg/dl Transferrin % Sat (15-50) % Ferritin (8-388) ng/ml Troponin I 0.451 H* (0-0.045) ng/ml NT-Pro-B Natriuret Pep (0-900) pg/ml Triglycerides (0-150) mg/dl Cholesterol (0-200) mg/dl LDL Cholesterol, Calc mg/dl VLDL Cholesterol, Calc mg/dl HDL Cholesterol mg/dl Cholesterol/HDL Ratio Vitamin B12 (193-986) pg/ml Folate (>5.38) ng/ml Urine Color Urine Appearance (Clear) Urine pH (4.5-7.5) Ur Specific [place] (1.000-1.030) Urine Protein (Negative) Urine Glucose (UA) (Negative) Urine Ketones (Negative) Urine Blood (Negative) Urine Nitrite (Negative) Urine Bilirubin (Negative) Urine Urobilinogen (Negative) Ur Leukocyte Esterase (Negative) U Hyaline Cast (Auto) (0-5) /lpf Urine RBC (0-4) /hpf Urine WBC (0-5) /hpf Ur Epithelial Cells (0-5) /lpf Ur Renal Epithelial Cell (0-5) /lpf Urine Bacteria (Negative) Granular Casts (0) /lpf Blood Type A Positive Antibody Screen NEGATIVE 02/02/20 02/02/20 Range/Units 16:05 09:42 WBC (4.8-10.8) K/uL RBC (4.2-5.4) M/uL Hgb 8.7 L (12.0-16.0) g/dL Hct 25.7 L (37-47) % MCV (80-100) fL MCH (25-34) pg MCHC (32-36) g/dL RDW Std Deviation (36.4-46.3) fL RDW Coeff of Pam (11.5-14.5) % Plt Count (130-400) K/uL MPV (7.4-10.4) fL Immature Gran % (Auto) % Neut % (Auto) % Lymph % (Auto) % [place] % (Auto) % Eos % (Auto) % Baso % (Auto) % Reticulocyte % (Auto) (0.5-2.0) % Neut # (Auto) (1.4-6.5) K/uL Lymph # (Auto) (1.2-3.4) K/uL [place] # (Auto) (0.11-0.59) K/uL Eos # (Auto) (0-0.5) K/uL Baso # (Auto) (0-0.2) K/uL Reticulocyte # (0.02-0.10) 10^6/uL Immature Gran # (Auto) (0.00-0.02) K/uL Sodium (136-145) mmol/L Potassium (3.5-5.1) mmol/L Chloride (98-107) mmol/L Carbon Dioxide (21-32) mmol/L Anion Gap (3-11) BUN (7-18) mg/dl Creatinine (0.6-1.2) mg/dl Est Cr Clr Drug Dosing ml/min Est GFR ( Amer) Est GFR (Non-Af Amer) BUN/Creatinine Ratio (10-20) Glucose (70-99) mg/dl POC Glucose (70-99) mg/dl Estimat Average Glucose mg/dl Hemoglobin A1c (4.5-5.6) % Calcium (8.5-10.1) mg/dl Iron (35-150) mcg/dl Transferrin (200-360) mg/dl Transferrin % Sat (15-50) % Ferritin (8-388) ng/ml Troponin I (0-0.045) ng/ml NT-Pro-B Natriuret Pep 8924 H (0-900) pg/ml Triglycerides (0-150) mg/dl Cholesterol (0-200) mg/dl LDL Cholesterol, Calc mg/dl VLDL Cholesterol, Calc mg/dl HDL Cholesterol mg/dl Cholesterol/HDL Ratio Vitamin B12 (193-986) pg/ml Folate (>5.38) ng/ml Urine Color Urine Appearance (Clear) Urine pH (4.5-7.5) Ur Specific [place] (1.000-1.030) Urine Protein (Negative) Urine Glucose (UA) (Negative) Urine Ketones (Negative) Urine Blood (Negative) Urine Nitrite (Negative) Urine Bilirubin (Negative) Urine Urobilinogen (Negative) Ur Leukocyte Esterase (Negative) U Hyaline Cast (Auto) (0-5) /lpf Urine RBC (0-4) /hpf Urine WBC (0-5) /hpf Ur Epithelial Cells (0-5) /lpf Ur Renal Epithelial Cell (0-5) /lpf Urine Bacteria (Negative) Granular Casts (0) /lpf Blood Type Antibody Screen Medications Administered Current Inpatient Medications Acetaminophen (Acetaminophen 325 Mg Tab) 650 mg PO Q4H PRN PRN Reason: Pain or Fever Stop: 03/03/20 14:50 Apixaban (Apixaban 5 Mg Tablet) 5 mg PO BID [facility] Stop: 03/03/20 20:59 Last Admin: 02/03/20 08:35 Dose: 5 mg Documented by: Azithromycin (Azithromycin 250 Mg Tab) 250 mg PO QAM [facility] Stop: 02/07/20 08:59 Last Admin: 02/03/20 08:35 Dose: 250 mg Documented by: Dextrose (Dextrose 50% 50 Ml Syringe) 25 - 50 ml IV UD PRN; Protocol PRN Reason: Hypoglycemia Protocol Stop: 03/03/20 14:50 Ferrous Sulfate (Ferrous Sulfate 325 Mg Tab) 325 mg PO BIDM [facility] Stop: 03/03/20 16:59 Last Admin: 02/03/20 08:34 Dose: 325 mg Documented by: Glucagon (Glucagon For Inj 1 Mg Vial) 1 mg SQ UD PRN; Protocol PRN Reason: Hypoglycemia Protocol Stop: 03/03/20 14:50 Glucose (Glucose 10 Tabs/Tube) 4 - 8 tabs PO UD PRN; Protocol PRN Reason: Hypoglycemia Protocol Stop: 03/03/20 14:50 Glucose (Glucose 40% Gel 15 Gm Tube) 15 - 30 gm PO UD PRN; Protocol PRN Reason: Hypoglycemia Protocol Stop: 03/03/20 14:50 Hydralazine HCl (Hydralazine Hcl 20 Mg/Ml Vial) 10 mg IV Q4H PRN PRN Reason: SBP >180 Stop: 03/04/20 07:52 Last Admin: 02/03/20 08:57 Dose: 10 mg Documented by: Ceftriaxone Sodium 2,000 mg/ (Dextrose) 70 mls @ 140 mls/hr IV Q24H [facility] Stop: 02/09/20 11:59 Insulin Aspart (Insulin Aspart 100 Units/Ml 3 Ml Pen) 0 units SC ACHS [facility] Stop: 03/03/20 16:29 Last Admin: 02/03/20 08:38 Dose: Not Given Documented by: Melatonin (Melatonin 3 Mg Tab) 3 mg PO HS PRN PRN Reason: Sleep Stop: 03/03/20 21:47 Metoprolol Tartrate (Metoprolol Tartrate 25 Mg Tab) 12.5 mg PO BID [facility] Stop: 03/03/20 20:59 Last Admin: 02/03/20 08:35 Dose: Not Given Documented by: Miscellaneous (Carbohydrates For Hypoglycemia ) 15 - 30 gm PO UD PRN PRN Reason: Hypoglycemia Protocol Stop: 03/03/20 14:50 Ondansetron HCl (Ondansetron Inj 2 Mg/Ml 2 Ml Vial) 4 mg IV Q6H PRN PRN Reason: Nausea Stop: 03/03/20 14:50 Pantoprazole Sodium (Pantoprazole 40 Mg Tab) 40 mg PO DAILY [facility] Stop: 03/04/20 08:59 Last Admin: 02/03/20 08:35 Dose: 40 mg Documented by: Polyethylene Glycol (Polyethylene (Miralax) 17 Gm Pack) 17 gm PO DAILY PRN PRN Reason: Constipation Stop: 03/03/20 14:50 Last Admin: 02/03/20 07:07 Dose: 17 gm Documented by: Resident Activity Tracking Resident Involvement: Resident Care Provided Care Provided: Adult Hospital Medicine (1) Aortic stenosis Cardiac valve disease etiology: etiology unspecified Qualified Code(s): I35.0 - Nonrheumatic aortic (valve) stenosis (2) HTN (hypertension) Hypertension type: essential hypertension Qualified Code(s): I10 - Essential (primary) hypertension
--- NOTE | 2020-02-03 11:31 | Cardiology Consultation ---
Date of Consultation February 03, 2020 Assessment & Plan (1) Acute on chronic diastolic CHF (congestive heart failure): -likely cause of her presenting complaints. -would reinitiate diuretic therapy via an intravenous route. -likely cause of minor troponin elevation. -echocardiogram notes normal systolic function and moderate LVH. (2) PAF (paroxysmal atrial fibrillation): -the patient converted to sinus rhythm yesterday afternoon. -continue rate control and long-term anticoagulation. (3) Aortic stenosis: -moderate aortic stenosis on current echocardiogram. -continue with yearly surveillance studies. (4) HTN (hypertension): -may need to add another agent such as an ACEI or ARB. History of Present Illness Attending Physician: Jagjit Clark DO History of Present Illness Mrs. Chaidez is a 74-year-old female admitted yesterday with hypoxia and decompensated diastolic CHF. This consultation was ordered to assist her cardiac management. Of note, the patient was previously seen by [facility] cardiology. The patient was in her usual state of health until approximately 4 days prior to presentation. The patient began to note significant and progressive exertional dyspnea. She experienced several episodes of PND and also complained of orthopnea. She traveled to [place] with her family and a community member there placed her on oxygen due to her complaints. She noted significant improvement in her symptoms until her oxygen ran out on the day of presentation. She was noted to have a room air saturation at rest of 88% when evaluated but he biology professor yesterday. The patient carries a history of chronic diastolic CHF. She typically takes Bumex 2 mg daily. She does admit to noncompliance with a salt and fluid restricted diet. She also carries a history of paroxysmal atrial fibrillation and is maintained on long-term anticoagulation and rate control. Currently, patient is resting comfortably at the bedside without complaints. Past medical and surgical history 1. Hypertension 2. Hypercholesterolemia 3. Chronic diastolic CHF 4. Moderate aortic stenosis 5. Moderate LVH 6. Paroxysmal atrial fibrillation 7. Hyperglycemia 8. GERD 9. Iron deficiency anemia 10. TIA-August 2018 Social history and lives with her No tobacco or alcohol Family history Noncontributory Review systems A 10 point review systems was negative except for that described above. Allergies Allergy/AdvReac Type Severity Reaction Status Date / Time No Known Allergies Allergy Unverified 02/02/20 10:04 Home Medications Medication Instructions Recorded Confirmed Type apixaban [Eliquis] 5 mg PO BID 02/02/20 02/02/20 History bumetanide 2 mg PO DAILY 02/02/20 02/02/20 History ferrous sulfate 325 mg PO BID 02/02/20 02/02/20 History omeprazole 40 mg PO DAILY 02/02/20 02/02/20 History Patient History Medical History Aortic stenosis Atrial fibrillation HTN (hypertension) Hypertension Pre-diabetes TIA (transient ischemic attack) Social History Smoking Status: Never smoker Hx Alcohol Use: No Hx Substance Use: No Preferred Language: Uz[place] Communication Ability: Effective Beliefs That Will Affect Care: Scientology and Cultural Cultural Beliefs: Request female nurses marital status: Current Living Situation: Family Feels Safe at Home: Yes Safety Concerns: Feels Safe At This Time Assistive Devices: None Physical Exam Physical Exam: In general this is an obese white female in no acute distress. HEENT exam is negative. Neck is supple with delayed carotid upstrokes. No carotid bruits or transmitted murmurs. Jugular venous pressure is difficult to assess. Cardiovascular exam reveals a regular rhythm with distant heart sounds. A 2/6 crescendo decrescendo systolic murmur is heard loudest at the base. No S3. Lungs note decreased breath sounds at the bases but no rales, rhonchi, or wheezes. Abdomen is obese without bruits. Extremities reveal intact radial artery pulses bilaterally. There is 1+ pretibial edema. Results & Data ([facility]) Vital Signs (Past 12 Hours) Vital Signs Temp Pulse Pulse Resp BP Pulse Ox 02/03/20 11:14 18 187/76 H 02/03/20 07:25 36.5 C 59 L 18 208/82 H 96 02/03/20 07:05 65 02/03/20 06:19 68 02/03/20 06:18 20 95 02/03/20 03:23 36.7 C 55 L 16 173/79 H 93 Laboratory Results CBC notes hemoglobin 8.7, hematocrit 26.1, white count 6.6, platelet count [id number]. Electrolytes note a sodium of 138, potassium 3.0, chloride 102, bicarb 27, BUN 49, creatinine 2.53, glucose of 100. Initial troponin was 0.061 with follow-up values of [id number]. BNP was elevated at 8924. LDL cholesterol is 166 with an HDL of 59. Diagnostic Findings EKG on presentation noted atrial fibrillation with a rapid ventricular response. There is an incomplete left bundle-branch block. laboratory monitor noted the patient convert to sinus rhythm at approximately 3:10 a.m. yesterday afternoon. Echocardiogram notes normal left ventricular systolic function without wall mot ion abnormalities. Left ventricular ejection fraction is 60-65%. There is moderate LVH and evidence of moderate aortic stenosis. There is [id number] mitral regurgitation. Chest x-ray notes cardiomegaly and evidence of interstitial edema. PG Care Time/CCT Total # of Minutes Spent Total Time Spent with Patient: Total time spent is greater than 50% in coordination of care (as documented) at patient's floor/unit and/or counseling patient: Coding Level of Care Code 73858 Inpt Consult Level 4 Diagnoses Acute on chronic diastolic CHF (congestive heart failure) I50.33 PAF (paroxysmal atrial fibrillation) I48.0 Aortic stenosis I35.0 Cardiac valve disease etiology: etiology unspecified HTN (hypertension) I10 Hypertension type: essential hypertension (1) Aortic stenosis Cardiac valve disease etiology: etiology unspecified Qualified Code(s): I35.0 - Nonrheumatic aortic (valve) stenosis (2) HTN (hypertension) Hypertension type: essential hypertension Qualified Code(s): I10 - Essential (primary) hypertension
[2020-02-03] MEDS ORDERED: cefTRIAXone SODIUM 2,000 MG in DEXTROSE 5% 50 ML IV SCH (12:00)
[2020-02-03] MEDS ORDERED: BUMETANIDE 2 MG in SYRINGE 0 ML IV STA (12:16)
[2020-02-03] MEDS ORDERED: TRIAMCINOLONE ACET 0.025% CR 15 GM TUBE EXT PRN (16:30)
--- NOTE | 2020-02-03 18:54 | Billing Data ---
Date of Service February 03, 2020 Coding Level of Care Code 83739 Subseq Hosp Care Lvl 3
[2020-02-04] MEDS: hydrALAZINE HCL 20 MG/ML VIAL IV PRN ×2 (03:34→12:01)
[2020-02-04 06:22] LABS: Basophils # (auto) 0.02 K/uL (0-0.2); Basophils % (auto) 0.3 %; Eosinophils # (auto) 0.59 K/uL (0-0.5); Eosinophils % (auto) 9.2 %; Immature Granulocytes # (auto) 0.03 K/uL (0.00-0.02); Immature Granulocytes % (auto) 0.5 %; Lymphocytes # (auto) 1.86 K/uL (1.2-3.4); Lymphocytes % (auto) 29.1 %; Mean Corpuscular Hemoglobin 30.2 pg (25-34); Mean Corpuscular Hgb Conc 33.3 g/dL (32-36); Mean Corpuscular Volume 90.6 fL (80-100); Mean Platelet Volume 9.6 fL (7.4-10.4); Monocytes # (auto) 0.79 K/uL (0.11-0.59); Monocytes % (auto) 12.3 %; Neutrophils # (auto) 3.11 K/uL (1.4-6.5); Neutrophils % (auto) 48.6 %; Platelet Count 320 K/uL (130-400); RDW Standard Deviation 53.8 fL (36.4-46.3); Red Blood Count 2.65 M/uL (4.2-5.4)
[2020-02-04 06:36] LABS: Calcium 8.6 mg/dl (8.5-10.1); Creatinine Clr Calc Pharmacy 17.6 ml/min; Est GFR (African American) 18.5; Potassium 3.4 mmol/L (3.5-5.1)
[2020-02-04] MEDS: FERROUS SULFATE 325 MG TAB PO SCH ×2 (07:58→17:55)
[2020-02-04] MEDS: APIXABAN 5 MG TABLET PO SCH ×2 (07:58→22:00)
[2020-02-04] MEDS: METOPROLOL TARTRATE 25 MG TAB PO SCH ×2 (07:58→22:00)
[2020-02-04] MEDS: PANTOprazole 40 MG TAB PO SCH (07:59)
[2020-02-04] MEDS ORDERED: BUMETANIDE 2 MG in SYRINGE 0 ML IV ONE (08:00)
[2020-02-04] MEDS ORDERED: amLODIPine BESYLATE 5 MG TAB PO ONE (08:00)
[2020-02-04] MEDS: INSULIN ASPART 100 UNITS/ML 3 ML PEN SC SCH ×4 (08:10→21:55)
--- NOTE | 2020-02-04 09:43 | Hospitalist Progress Note ---
Date of Service February 04, 2020 Assessment & Plan (1) Acute on chronic diastolic CHF (congestive heart failure): Bety Chaidez is a 74y/o F with PMH significant for mild aortic stenosis, atrial fibrillation, chronic heart failure with preserved ejection fraction, and HTN; who presented following continued worsening of her shortness of breath and fatigue over the last several days/weeks. Acute CHF: - BNP on admission 8924 - CXR demonstrating concerns for increased pulmonary vascular congestion - Echo demonstrated moderate aortic stenosis, with EF 60-65%, normal LV function, no regional wall motion abnormalities - Cardiology consulted: recommended continued diuresis, likely cause of minor Troponin elevation - received 2mg IV Bumex today - will trial Imdur and Hydralazine in AM for combination of preload reduction and Atrial fibrillation with RVR: - spontaneously converted in ER - continue Eliquis BID - continue Lopressor 12.5mg BID with hold parameters Elevated Creatinine: - Cr on admission 2.48, raise this AM to 2.78 - etiology unknown, as patient simultaneously appears clinically dry but with pulmonary vascular congestion - continue to follow Aortic stenosis: - Echo demonstrated progression of aortic stenosis from last study HTN: - isolated systolic HTN throughout the night and day, up to SBP of 208 - patient was previously on Amlodipine 10mg daily but this was discontinued for unknown reasons - continue Lopressor 12.5mg BID - Hydralazine 10mg Q4h PRN SBP >180 - consider re-addition of anti-HTN regiment that was previously stopped Admission and Anticipated Discharge Date Admission Date: February 02, 2020 Supervising Physician Co-Signing Physician Notes I personally examined the patient and verified all bishop points of history and exam, discussed case, and agree with decision making with Dr Arthur. breathing up and down - sometimes a little better sometimes a little worse. has had orthopnea for a long time at home vitals noted nad heent nc at mmm lungs overall clear but diminished air entry throughout. no accessory muscles. acute on chronic diastolic chf -not clear that this is all that is at play. -possibly baseline cardiomyopathy has progressed to create dyspnea - in addition to diuresis, adjust baseline regimen -CKD4 likely a contributor -question chronic lung disease given dyspnea, second hand smoke exposure, and very quiet lungs on exam (CT chest, consider PFTs, trial of albuterol to follow for response) chronic afib - rate controlled, anticoagulated otherwise as above Subjective Patient continues to have intermittent feelings of shortness of breath, they are not improved with sitting up but are worsened by laying flat on the bed, she slept with two pillows under her head and at a slight incline overnight and this was minimally helpful. Thinks that the main thing that has been helpful was the nasal cannula support that she continues to receive. Did not notice improvement with the IV diuretics throughout the day today. Review of Systems Review of Systems: All systems reviewed & are unremarkable except as noted in Subjective Physical Exam Constitutional: WD/WN, vitals as above Eyes: PERRL, conjunctivae normal, anicteric sclerae Respiratory: normal respiratory effort; no respiratory distress and no labored breathing Auscultation: + diminished lung sounds and + rhonchi (R>L); no crackles, no rales and no wheezes Cardiovascular: Rate/Rhythm: regular rate and regular rhythm Heart Sounds: + murmur (systolic ejection murmur best over FLO border); no gallop and no cardiac rub Extremities: no pedal edema Gastrointestinal (Abdomen): normal bowel sounds, soft, nontender, no hepatosplenomegaly Neurologic: deep tendon reflexes 2+ bilaterally and moves all extremities Psychiatric: Orientation: alert and oriented x 3 Results & Data Results & Data ([facility]) Vital Signs (Past 12 Hours) Vital Signs Temp Pulse Pulse Resp BP Pulse Ox 02/04/20 08:13 58 L 02/04/20 07:22 36.4 C L 66 18 219/67 H 96 02/04/20 03:00 36.5 C 62 20 203/67 H 98 02/04/20 02:21 57 L 02/03/20 23:28 36.9 C 53 L 20 180/74 H 97 Laboratory Results 02/04/20 02/04/20 02/04/20 Range/Units 16:25 11:32 07:44 WBC (4.8-10.8) K/uL RBC (4.2-5.4) M/uL Hgb (12.0-16.0) g/dL Hct (37-47) % MCV (80-100) fL MCH (25-34) pg MCHC (32-36) g/dL RDW Std Deviation (36.4-46.3) fL RDW Coeff of Pam (11.5-14.5) % Plt Count (130-400) K/uL MPV (7.4-10.4) fL Immature Gran % (Auto) % Neut % (Auto) % Lymph % (Auto) % [place] % (Auto) % Eos % (Auto) % Baso % (Auto) % Neut # (Auto) (1.4-6.5) K/uL Lymph # (Auto) (1.2-3.4) K/uL [place] # (Auto) (0.11-0.59) K/uL Eos # (Auto) (0-0.5) K/uL Baso # (Auto) (0-0.2) K/uL Immature Gran # (Auto) (0.00-0.02) K/uL Sodium (136-145) mmol/L Potassium (3.5-5.1) mmol/L Chloride (98-107) mmol/L Carbon Dioxide (21-32) mmol/L Anion Gap (3-11) BUN (7-18) mg/dl Creatinine (0.6-1.2) mg/dl Est Cr Clr Drug Dosing ml/min Est GFR ( Amer) Est GFR (Non-Af Amer) BUN/Creatinine Ratio (-20) Glucose (70-99) mg/dl POC Glucose 119 H 123 H 108 H (70-99) mg/dl Calcium (8.5-10.1) mg/dl 02/04/20 02/04/20 02/03/20 Range/Units 05:30 05:30 20:14 WBC 6.40 (4.8-10.8) K/uL RBC 2.65 L (4.2-5.4) M/uL Hgb 8.0 L (12.0-16.0) g/dL Hct 24.0 L (37-47) % MCV 90.6 (80-100) fL MCH 30.2 (25-34) pg MCHC 33.3 (32-36) g/dL RDW Std Deviation 53.8 H (36.4-46.3) fL RDW Coeff of Pam 16.0 H (11.5-14.5) % Plt Count 320 (130-400) K/uL MPV 9.6 (7.4-10.4) fL Immature Gran % (Auto) 0.5 % Neut % (Auto) 48.6 % Lymph % (Auto) 29.1 % [place] % (Auto) 12.3 % Eos % (Auto) 9.2 % Baso % (Auto) 0.3 % Neut # (Auto) 3.11 (1.4-6.5) K/uL Lymph # (Auto) 1.86 (1.2-3.4) K/uL [place] # (Auto) 0.79 H (0.11-0.59) K/uL Eos # (Auto) 0.59 H (0-0.5) K/uL Baso # (Auto) 0.02 (0-0.2) K/uL Immature Gran # (Auto) 0.03 H (0.00-0.02) K/uL Sodium 138 (136-145) mmol/L Potassium 3.4 L (3.5-5.1) mmol/L Chloride 105 (98-107) mmol/L Carbon Dioxide 26 (21-32) mmol/L Anion Gap 7.0 (3-11) BUN 56 H (7-18) mg/dl Creatinine 2.78 H (0.6-1.2) mg/dl Est Cr Clr Drug Dosing 17.6 ml/min Est GFR ( Amer) 18.5 Est GFR (Non-Af Amer) 16.0 BUN/Creatinine Ratio 20.0 (10-20) Glucose 92 (70-99) mg/dl POC Glucose 150 H (70-99) mg/dl Calcium 8.6 (8.5-10.1) mg/dl Medications Administered Current Inpatient Medications Acetaminophen (Acetaminophen 325 Mg Tab) 650 mg PO Q4H PRN PRN Reason: Pain or Fever Stop: 03/03/20 14:50 Apixaban (Apixaban 5 Mg Tablet) 5 mg PO BID [facility] Stop: 03/03/20 20:59 Last Admin: 02/04/20 07:58 Dose: 5 mg Documented by: Dextrose (Dextrose 50% 50 Ml Syringe) 25 - 50 ml IV UD PRN; Protocol PRN Reason: Hypoglycemia Protocol Stop: 03/03/20 14:50 Ferrous Sulfate (Ferrous Sulfate 325 Mg Tab) 325 mg PO BIDM [facility] Stop: 03/03/20 16:59 Last Admin: 02/04/20 17:55 Dose: 325 mg Documented by: Glucagon (Glucagon For Inj 1 Mg Vial) 1 mg SQ UD PRN; Protocol PRN Reason: Hypoglycemia Protocol Stop: 03/03/20 14:50 Glucose (Glucose 10 Tabs/Tube) 4 - 8 tabs PO UD PRN; Protocol PRN Reason: Hypoglycemia Protocol Stop: 03/03/20 14:50 Glucose (Glucose 40% Gel 15 Gm Tube) 15 - 30 gm PO UD PRN; Protocol PRN Reason: Hypoglycemia Protocol Stop: 03/03/20 14:50 Hydralazine HCl (Hydralazine Hcl 20 Mg/Ml Vial) 10 mg IV Q4H PRN PRN Reason: SBP >180 Stop: 03/04/20 07:52 Last Admin: 02/04/20 12:01 Dose: 10 mg Documented by: Hydralazine HCl (Hydralazine Hcl 25 Mg Tab) 25 mg PO TID [facility] Stop: 03/05/20 20:59 Insulin Aspart (Insulin Aspart 100 Units/Ml 3 Ml Pen) 0 units SC ACHS [place] Stop: 03/03/20 16:29 Last Admin: 02/04/20 16:52 Dose: Not Given Documented by: Isosorbide Mononitrate (Isosorbide [place] Extended Rel 30 Mg Tabcr) 30 mg PO QAM [facility] Stop: 03/06/20 08:59 Melatonin (Melatonin 3 Mg Tab) 3 mg PO HS PRN PRN Reason: Sleep Stop: 03/03/20 21:47 Last Admin: 02/03/20 21:02 Dose: 3 mg Documented by: Metoprolol Tartrate (Metoprolol Tartrate 25 Mg Tab) 12.5 mg PO BID [facility] Stop: 03/03/20 20:59 Last Admin: 02/04/20 07:58 Dose: 12.5 mg Documented by: Miscellaneous (Carbohydrates For Hypoglycemia ) 15 - 30 gm PO UD PRN PRN Reason: Hypoglycemia Protocol Stop: 03/03/20 14:50 Ondansetron HCl (Ondansetron Inj 2 Mg/Ml 2 Ml Vial) 4 mg IV Q6H PRN PRN Reason: Nausea Stop: 03/03/20 14:50 Pantoprazole Sodium (Pantoprazole 40 Mg Tab) 40 mg PO DAILY [place] Stop: 03/04/20 08:59 Last Admin: 02/04/20 07:59 Dose: 40 mg Documented by: Polyethylene Glycol (Polyethylene (Miralax) 17 Gm Pack) 17 gm PO DAILY PRN PRN Reason: Constipation Stop: 03/03/20 14:50 Last Admin: 02/03/20 07:07 Dose: 17 gm Documented by: Potassium Chloride (Potassium Chloride Crtab 20 Meq Tabcr) 20 meq PO BID [place] Stop: 03/05/20 20:59 Triamcinolone Acetonide (Triamcinolone Acet 0.025% Cr 15 Gm Tube) 1 appln EXT Q8H PRN PRN Reason: pruritis over lower back Stop: 03/04/20 16:29 Last Admin: 02/03/20 20:36 Dose: 1 appln Documented by: Resident Activity Tracking Resident Involvement: Resident Care Provided Care Provided: Adult Hospital Medicine
[2020-02-04] MEDS ORDERED: ALBUTEROL 0.083% NEBU SOLN 3 ML VIAL NEB STA (16:18)
--- NOTE | 2020-02-04 18:36 | Billing Data ---
Date of Service February 04, 2020 Coding Level of Care Code 47482 Subseq Hosp Care Lvl 3
[2020-02-04] MEDS ORDERED: ALBUTEROL 0.083% NEBU SOLN 3 ML VIAL NEB PRN (18:55)
--- NOTE | 2020-02-04 21:20 | CT Scan Report ---
CT chest wo con CT DOSE: 389.08 mGycm CLINICAL HISTORY: 74 years-old Female with Diminished breath sounds. Follow-up study in a patient wi th right lateral pleural effusions and bibasilar opacities. TECHNIQUE: Multiaxial CT images of the chest were performed without contrast. A dose lowering techni que was utilized adhering to the principles of ALARA. COMPARISON: Chest radiograph 02/02/2020. FINDINGS: Heterogeneous multinodular thyroid with right thyroid lobe calcification. Moderate cardiome brennen with small to moderate pericardial effusion measuring up to 9 mm posteriorly. Coronary artery wi th moderate to extensive thoracic aortic calcifications. No thoracic aortic aneurysm. Dilated main pu lmonary artery, 3.5 cm. Calcified hilar and subcarinal lymph nodes. Pathologically enlarged paratrach eal and subcarinal lymph nodes measure up to 12 mm in short axis. Prominent axillary chain lymph node s are also present. Nonspecific pleural thickening of the left hemithorax. Small to moderate pleural effusions. Bibasilar parenchymal calcifications with left greater than right bibasilar consolidation. Mild intralobular s eptal thickening with intermixed groundglass densities. There are a few scattered nonspecific subpleu ral pulmonary nodules measuring up to 4 mm of low clinical suspicion. Central airways are patent. No acute process of the imaged upper abdomen. Anasarca. Healed remote bilateral rib fractures. IMPRESSION: 1. Cardiomegaly with pulmonary edema. 2. Small to moderate pleural effusions with left greater than right bibasilar consolidation suggestiv e of compressive atelectasis. Pneumonia would be impossible to exclude. 3. Dilated pulmonary artery suggestive of pulmonary artery hypertension. 4. Enlarged mediastinal and hilar lymph nodes, possibly reactive. ACT 112: Negative or not required by law. Electronically signed by: Hema Mccarty M.D. 02/04/2020 9:19 PM
[2020-02-04] MEDS: POTASSIUM CHLORIDE CRTAB 20 MEQ TABCR PO SCH (22:00)
[2020-02-04] MEDS: hydrALAZINE HCL 25 MG TAB PO SCH (22:00)
[2020-02-05] MEDS: hydrALAZINE HCL 20 MG/ML VIAL IV PRN (04:18)
[2020-02-05 06:21] LABS: Basophils # (auto) 0.06 K/uL (0-0.2); Basophils % (auto) 0.8 %; Eosinophils # (auto) 0.54 K/uL (0-0.5); Eosinophils % (auto) 7.6 %; Immature Granulocytes # (auto) 0.03 K/uL (0.00-0.02); Immature Granulocytes % (auto) 0.4 %; Lymphocytes # (auto) 2.05 K/uL (1.2-3.4); Lymphocytes % (auto) 28.7 %; Mean Corpuscular Hemoglobin 30.7 pg (25-34); Mean Corpuscular Hgb Conc 33.3 g/dL (32-36); Mean Platelet Volume 9.7 fL (7.4-10.4); Monocytes # (auto) 0.92 K/uL (0.11-0.59); Monocytes % (auto) 12.9 %; Neutrophils # (auto) 3.54 K/uL (1.4-6.5); Neutrophils % (auto) 49.6 %; Platelet Count 348 K/uL (130-400); RDW Coefficient of Variation 16.1 % (11.5-14.5); RDW Standard Deviation 54.8 fL (36.4-46.3); Red Blood Count 2.61 M/uL (4.2-5.4); White Blood Count 7.14 K/uL (4.8-10.8)
[2020-02-05 06:56] LABS: BUN Creatinine Ratio 21.1 (10-20); Calcium 8.5 mg/dl (8.5-10.1); Creatinine Clr Calc Pharmacy 18.3 ml/min; Est GFR (African American) 19.5; Est GFR (Non-African American) 16.8; Potassium 3.5 mmol/L (3.5-5.1)
[2020-02-05] MEDS: POTASSIUM CHLORIDE CRTAB 20 MEQ TABCR PO SCH (08:17)
[2020-02-05] MEDS: METOPROLOL TARTRATE 25 MG TAB PO SCH (08:17)
[2020-02-05] MEDS: FERROUS SULFATE 325 MG TAB PO SCH (08:17)
[2020-02-05] MEDS: PANTOprazole 40 MG TAB PO SCH (08:18)
[2020-02-05] MEDS ORDERED: ISOSORBIDE MONO EXTENDED REL 30 MG TABCR PO SCH (09:00)
[2020-02-05] MEDS: INSULIN ASPART 100 UNITS/ML 3 ML PEN SC SCH ×2 (09:26→12:04)
--- NOTE | 2020-02-05 10:25 | Cardiology Progress Note ---
Date of Service February 05, 2020 Assessment & Plan (1) Acute on chronic diastolic CHF (congestive heart failure): She received a dose of IV Bumex yesterday, but she did not note any significant diuresis or change in her breathing. Recommend continued diuresis with IV Bumex 2 mg BID. Recommend close monitoring of I's&O's and renal function. Low sodium diet, <2,000 mg daily. (2) PAF (paroxysmal atrial fibrillation): She converted to sinus rhythm on 02/01 and remains in sinus. Continue rate control and long-term anticoagulation. (3) Aortic stenosis: Moderate aortic stenosis on echocardiogram this admission. Continue to monitor with yearly surveillance echocardiograms as an outpatient. (4) HTN (hypertension): BP remains elevated. Her pressure should improve with IV diuresis. Admission and Anticipated Discharge Date Admission Date: February 02, 2020 Subjective She reports that she continues to feel short of breath. She was able to sleep relatively flat on her side last night, but she woke up short of breath around 5 am. Her breathing did not improve until she sat upright and her supplemental oxygen was increased. She continues to feel short of breath with walking back and forth from the restroom. Overall, she states that her breathing is unchanged since admission. She denies chest pain or palpitations. She has not noted any significant lower extremity edema. She denies lightheadedness, syncope, or near syncope. Review of Systems Review of Systems: All systems reviewed & are unremarkable except as noted in Subjective Physical Exam Physical Exam: Constitutional: Alert, oriented, in no acute distress HEENT: Head is atraumatic and normocephalic. EOMs intact. Sclera non-icteric. Face is symmetric. No perioral cyanosis. Mucous membranes moist Neck: Supple, JVP elevated 1/[address] to the angle of the mandible at rest Pulmonary: Normal respiratory effort, bibasilar crackles Cardiac: Regular rate and rhythm, normal S1 and S2, no gallops, no rubs, 2/6 systolic murmur heard best at the right upper sternal border Extremities: No pitting edema. No clubbing or cyanosis. Pulses 2+ and symmetric Abdomen: Normal bowel sounds, soft, non-tender, no abdominal masses palpated Skin: Normal skin color, turgor, and pigmentation. No rash or skin lesions Neurological: Oriented to person, place, and time Results & Data ([facility]) Vital Signs (Past 12 Hours) Vital Signs Temp Pulse Pulse Resp BP BP Pulse Ox 02/05/20 07:34 65 02/05/20 07:30 98.2 F 109 H 19 211/84 H 100 02/05/20 04:27 51 L 02/05/20 04:00 98.1 F 57 L 20 198/71 H 99 02/04/20 23:00 98.1 F 54 L 20 172/69 H 99 Laboratory Results Laboratory Results WBC 7.14 K/uL (4.8-10.8) 02/05/20 05:18 RBC 2.61 M/uL (4.2-5.4) L 02/05/20 05:18 Hgb 8.0 g/dL (12.0-16.0) L 02/05/20 05:18 Hct 24.0 % (37-47) L 02/05/20 05:18 MCV 92.0 fL (80-100) 02/05/20 05:18 MCH 30.7 pg (25-34) 02/05/20 05:18 MCHC 33.3 g/dL (32-36) 02/05/20 05:18 RDW Std Deviation 54.8 fL (36.4-46.3) H 02/05/20 05:18 RDW Coeff of Pam 16.1 % (11.5-14.5) H 02/05/20 05:18 Plt Count 348 K/uL (130-400) 02/05/20 05:18 MPV 9.7 fL (7.4-10.4) 02/05/20 05:18 Immature Gran % (Auto) 0.4 % 02/05/20 05:18 Neut % (Auto) 49.6 % 02/05/20 05:18 Lymph % (Auto) 28.7 % 02/05/20 05:18 [place] % (Auto) 12.9 % 02/05/20 05:18 Eos % (Auto) 7.6 % 02/05/20 05:18 Baso % (Auto) 0.8 % 02/05/20 05:18 Reticulocyte % (Auto) 1.7 % (0.5-2.0) 02/03/20 06:23 Neut # (Auto) 3.54 K/uL (1.4-6.5) 02/05/20 05:18 Lymph # (Auto) 2.05 K/uL (1.2-3.4) 02/05/20 05:18 [place] # (Auto) 0.92 K/uL (0.11-0.59) H 02/05/20 05:18 Eos # (Auto) 0.54 K/uL (0-0.5) H 02/05/20 05:18 Baso # (Auto) 0.06 K/uL (0-0.2) 02/05/20 05:18 Reticulocyte # 0.05 10^6/uL (0.02-0.10) 02/03/20 06:23 Immature Gran # (Auto) 0.03 K/uL (0.00-0.02) H 02/05/20 05:18 PT 10.9 Seconds (9.0-12.0) 02/02/20 09:42 INR 1.0 (0.9-1.1) 02/02/20 09:42 D-Dimer 820 ug/L FEU (0-500) H* 02/02/20 09:42 Sodium 140 mmol/L (136-145) 02/05/20 05:18 Potassium 3.5 mmol/L (3.5-5.1) 02/05/20 05:18 Chloride 107 mmol/L (98-107) 02/05/20 05:18 Carbon Dioxide 28 mmol/L (21-32) 02/05/20 05:18 Anion Gap 5.0 (3-11) 02/05/20 05:18 BUN 56 mg/dl (7-18) H 02/05/20 05:18 Creatinine 2.67 mg/dl (0.6-1.2) H 02/05/20 05:18 Est Cr Clr Drug Dosing 18.3 ml/min 02/05/20 05:18 Est GFR ( Amer) 19.5 02/05/20 05:18 Est GFR (Non-Af Amer) 16.8 02/05/20 05:18 BUN/Creatinine Ratio 21.1 (10-20) H 02/05/20 05:18 Glucose 91 mg/dl (70-99) 02/05/20 05:18 POC Glucose 108 mg/dl (70-99) H 02/05/20 07:42 Estimat Average Glucose 111 mg/dl 02/03/20 06:23 Hemoglobin A1c 5.5 % (4.5-5.6) 02/03/20 06:23 Lactate 2.1 mmol/L (0.4-2.0) H* 02/02/20 09:42 Calcium 8.5 mg/dl (8.5-10.1) 02/05/20 05:18 Magnesium 2.3 mg/dl (1.8-2.4) 02/02/20 09:42 Iron 41 mcg/dl (35-150) 02/03/20 06:23 Transferrin 174 mg/dl (200-360) L 02/03/20 06:23 Transferrin % Sat 17 % (15-50) 02/03/20 06:23 Ferritin 206.8 ng/ml (8-388) 02/03/20 06:23 Total Bilirubin 0.5 mg/dl (0.2-1) 02/02/20 09:42 AST 17 U/L (15-37) 02/02/20 09:42 ALT 22 U/L (12-78) 02/02/20 09:42 Alkaline Phosphatase 86 U/L (45-117) 02/02/20 09:42 Troponin I 0.364 ng/ml (0-0.045) H* 02/03/20 06:23 NT-Pro-B Natriuret Pep 8924 pg/ml (0-900) H 02/02/20 09:42 Total Protein 6.8 gm/dl (6.4-8.2) 02/02/20 09:42 Albumin 2.7 gm/dl (3.4-5.0) L 02/02/20 09:42 Globulin 4.1 gm/dl (2.5-4.0) H 02/02/20 09:42 Albumin/Globulin Ratio 0.7 (0.9-2) L 02/02/20 09:42 Triglycerides 104 mg/dl (0-150) 02/03/20 06:23 Cholesterol 246 mg/dl (0-200) H 02/03/20 06:23 LDL Cholesterol, Calc 166 mg/dl 02/03/20 06:23 VLDL Cholesterol, Calc 21 mg/dl 02/03/20 06:23 HDL Cholesterol 59 mg/dl 02/03/20 06:23 Cholesterol/HDL Ratio 4 02/03/20 06:23 Lipase 168 U/L (73-393) 02/02/20 09:42 Vitamin B12 > 2000 pg/ml (193-986) H 02/03/20 06:23 Folate > 20.00 ng/ml (>5.38) 02/03/20 06:23 Procalcitonin 0.71 ng/ml (0-0.5) H 02/02/20 09:42 TSH 3.180 uIu/ml (0.300-4.500) 02/02/20 09:42 Urine Color Yellow 02/02/20 22:50 Urine Appearance Clear (Clear) 02/02/20 22:50 Urine pH 5.0 (4.5-7.5) 02/02/20 22:50 Ur Specific [place] 1.020 (1.000-1.030) 02/02/20 22:50 Urine Protein 2+ (Negative) H 02/02/20 22:50 Urine Glucose (UA) Negative (Negative) 02/02/20 22:50 Urine Ketones Negative (Negative) 02/02/20 22:50 Urine Blood Negative (Negative) 02/02/20 22:50 Urine Nitrite Negative (Negative) 02/02/20 22:50 Urine Bilirubin Negative (Negative) 02/02/20 22:50 Urine Urobilinogen Negative (Negative) 02/02/20 22:50 Ur Leukocyte Esterase 1+ (Negative) H 02/02/20 22:50 U Hyaline Cast (Auto) 1-5 /lpf (0-5) 02/02/20 22:50 Urine RBC 0-4 /hpf (0-4) 02/02/20 22:50 Urine WBC 10-30 /hpf (0-5) H 02/02/20 22:50 Ur Epithelial Cells 0-5 /lpf (0-5) 02/02/20 22:50 Ur Renal Epithelial Cell 0-5 /lpf (0-5) 02/02/20 22:50 Urine Bacteria Negative (Negative) 02/02/20 22:50 Granular Casts 1-5 /lpf (0) H 02/02/20 22:50 Stool Occult Bld Scrn Cancelled 02/03/20 11:04 [facility]19 [facility] 02/02/20 09:35 SARS-CoV-2, RNA, NAAT NEGATIVE (NEGATIVE) 02/02/20 09:35 Blood Type A Positive 02/02/20 16:05 Antibody Screen NEGATIVE 02/02/20 16:[address]: 1. Cardiomegaly with pulmonary edema. 2. Small to moderate pleural effusions with left greater than right bibasilar consolidation suggestive of compressive atelectasis. Pneumonia would be impossible to exclude. 3. Dilated pulmonary artery suggestive of pulmonary artery hypertension. 4. Enlarged mediastinal and hilar lymph nodes, possibly reactive. Telemetry: Sinus bradycardia in the 50s. PVCs. PG Care Time/CCT Total # of Minutes Spent Total Time Spent with Patient: Total time spent is greater than 50% in coordination of care (as documented) at patient's floor/unit and/or counseling patient: Coding Level of Care Code 45133 Subseq Hosp Care Lvl 3 Diagnoses Acute on chronic diastolic CHF (congestive heart failure) I50.33 PAF (paroxysmal atrial fibrillation) I48.0 Aortic stenosis I35.0 Cardiac valve disease etiology: etiology unspecified HTN (hypertension) I10 Hypertension type: essential hypertension (1) Aortic stenosis Cardiac valve disease etiology: etiology unspecified Qualified Code(s): I35.0 - Nonrheumatic aortic (valve) stenosis (2) HTN (hypertension) Hypertension type: essential hypertension Qualified Code(s): I10 - Essential (primary) hypertension
[2020-02-05] MEDS: APIXABAN 5 MG TABLET PO SCH (10:37)
[2020-02-05] MEDS: hydrALAZINE HCL 25 MG TAB PO SCH ×2 (10:37→14:40)
--- NOTE | 2020-02-05 15:56 | Discharge Summary ---
Date of Service February 05, 2020 Admission HPI Per Admitting Provider Bety Chaidez is a 74-year-old female who presents to the ER with shortness of breath, jaw and left arm pain. She reports chronic shortness of breath on exertion for the last 2 years. No specific diagnosis she relates to this. However more recently has been getting progressively short of breath over the last 4 days. This coincided with a car trip to [place] on Saturday night. While there she was started on oxygen by a community member as she was feeling short of breath especially while lying flat. Unknown if her oxygen saturations were measured at that time. She wore the oxygen some of the time during the car journey home yesterday. She generally felt okay while sitting still but very short of breath on minimal exertion. The oxygen ran out around 3am and this morning EMS noted her O2 sats at 88%. She denies any cough however her son and EMS report a productive cough over the last 2 days. This morning approximately 7 AM she noted palpitations with associated jaw and left arm pain which lasted for approximately an hour until EMS arrived. She was given x4 aspirin by EMS. Stare 7am, finished around 8am. Shortness of breath stared 4 days ago, Usually gets SOB if she does too much on exertion. Associated palpitations. No nausea or sweating. No fever, chills cough, cough, sore throat, nasal congestion, loss of taste or smell, diarrhea, abdominal pain. No known COVID-19 exposure. The patient reports taking all her usual medications this morning. In the ER chest x-ray was concerning for pulmonary edema with small bilateral pleural effusions. Procalcitonin 0.71. She was given 2 g IV ceftriaxone due to concern for pneumonia. Potassium 2.7. IV potassium supplementation given. EKG showed atrial fibrillation with RVR, heart rate resolved without medication. Principal Diagnosis acute on chronic diastolic chf Discharge Exam Constitutional WD/WN, vitals as above Eyes PERRL, conjunctivae normal, anicteric sclerae Respiratory normal respiratory effort; no respiratory distress and no labored breathing Auscultation: + diminished lung sounds and + rhonchi (R>L); no crackles, no rales and no wheezes Cardiovascular Rate/Rhythm: regular rate and regular rhythm Heart Sounds: + murmur (systolic ejection murmur best over FLO border); no gallop and no cardiac rub Extremities: no pedal edema Gastrointestinal (Abdomen) normal bowel sounds, soft, nontender, no hepatosplenomegaly Neurologic deep tendon reflexes 2+ bilaterally and moves all extremities Psychiatric Orientation: alert and oriented x 3 Discharge Data Allergies Allergy/AdvReac Type Severity Reaction Status Date / Time No Known Allergies Allergy Unverified 02/02/20 10:04 Consultations 02/02/20 11:15 ED Decision to Admit Stat 02/02/20 11:48 Consult Health Information Management Stat 02/02/20 17:59 Consult Cardiology Routine Ordered Studies 02/04/20 16:19 CT chest wo con Routine Hospital Course (1) Acute on chronic diastolic CHF (congestive heart failure): Bety Chaidez is a 74y/o F with PMH significant for mild aortic stenosis, atrial fibrillation, chronic heart failure with preserved ejection fraction, and HTN; who presented following continued worsening of her shortness of breath and fatigue over the last several days/weeks. Acute CHF: - BNP on admission 8924 - CXR demonstrating concerns for increased pulmonary vascular congestion - Echo demonstrated moderate aortic stenosis, with EF 60-65%, normal LV function, no regional wall motion abnormalities - CT Chest demonstrated Small to moderate pleural effusions with left greater than right bibasilar consolidation suggestive of compressive atelectasis - requires 2liters Nasal Cannula with exertion, no O2 support needed at rest - continue 3mg Bumex daily - continue Imdur 30mg daily, and Hydralazine 25mg TID Atrial fibrillation with RVR: - spontaneously converted in ER - continue Eliquis BID - continue Lopressor 12.5mg BID Elevated Creatinine: - Cr on admission 2.48, raise this AM to 2.68 - etiology unknown, as patient simultaneously appears clinically dry but with pulmonary vascular congestion - continue to follow with BMPs weekly Aortic stenosis: - Echo demonstrated progression of aortic stenosis from last study HTN: - isolated systolic HTN throughout the night and day, up to SBP of 208 - patient was previously on Amlodipine 10mg daily but this was discontinued for unknown reasons - continue Lopressor 12.5mg BID and Hydralazine 25mg TID Total Time Total Time Spent Total Time Spent (In Minutes): <30 Discharge Plan Discharge Items Patient Disposition: Home - Self-Care Reason For Visit: ACUTE CHF Discharge Diagnosis: Acute on Chronic CHF Activity: Per Instructions section Non-emergency contact: Primary Care Provider Call non-emergency contact if: you have any medication questions, your symptoms worsen and you have a fever Follow-up/Referrals: Hi Henderson MD [Primary Care Provider] - 02/10/20 1:00 pm Diet: Low Sodium (2gm) Addtl Attending Provider Instructions: You were seen and admitted following concerns for progressive shortness of breath over the last several weeks or months. During this admission, you had sev eral studies to determine the source of your shortness of breath, and these demonstrated that your shortness of breath is likely a result of long term care social worker poor control of your congestive heart failure. In the future it will continue to be important that you limit the amount of sodium that you consume on a daily basis, this elevated sodium consumption leads to more water retention which will increase the shortness of breath that you have. Sodium consumption commonly comes from the use of salt in preparation of foods when cooking, janna of foods, through the use of butter, or through the addition of salt to food when eating. As a result of your congestive heart failure, we are increasing the diuretic that you will take on a daily basis from 2mg to 3mg, given that this can affect your kidneys it is important that over the next several weeks you have regular lab work looking at your kidney function on this diuretic. Additionally, we have started you on two new medications for better control of your blood pressure, one that you will take first thing in the morning and one that you will take three times a day. It is important that you continue to take these medications as they will both work to control your blood pressure and have additive benefits to your heart failure. Call your Primary Care doctor if any of the following symptoms or problems start or get worse: * Shortness of breath or difficulty breathing * Wake up at night short of breath * Chest pain * Cough * Swelling of your hands, feet, or legs * More fatigued or tired with your normal activity * Palpitations - sudden fast heart beats WEIGHT * Weigh yourself every morning after using the bathroom. * Use the same scale. * Wear the same amount of clothing. * Write your weight down on a chart. * Call your Primary Care doctor if you gain more than 2-3 pounds in 1-2 days. MEDICATIONS * Use this discharge instruction sheet for medication instructions. * Take your medications at the time your doctor ordered. * Do not skip a dose of your medicines. * If you miss a dose of medicine, take it as soon as possible, but DO NOT DOUBLE A DOSE. * Read your medicine information when you get home. * Know all of the side effects of your medicine. If in doubt, ask your pharmacist * Call your Primary Care doctor's office if you have any side effects. * Be sure all of your doctors know what medicine and herbs you take (including cold, flu, and herbal medicine). Take the following with you to your follow-up doctor appointments: * Weight Chart * Medication List * List of questions Do not drink excessive alcohol, beer or wine. Pending Studies at Discharge: No Stand-Alone Forms: My [facility], Smoking Cessation Medications and DC Order Prescriptions: New metoprolol tartrate 25 mg Tablet 12.5 mg PO BID 30 Days Qty: 30 RF: 0 isosorbide mononitrate 30 mg Tablet Extended Release 24 Hr 30 mg PO QAM 30 Days Qty: 30 RF: 0 hydralazine 25 mg Tablet 25 mg PO TID 30 Days Qty: 90 RF: 0 bumetanide 1 mg Tablet 3 mg PO QAM 30 Days Qty: 90 RF: 0 Continued omeprazole 40 mg capsule,delayed release(DR/EC) 40 mg PO DAILY RF: 0 Eliquis 5 mg tablet 5 mg PO BID RF: 0 ferrous sulfate 325 mg (65 mg iron) tablet 325 mg PO BID RF: 0 Discontinued bumetanide 2 mg tablet 2 mg PO DAILY RF: 0 Discharge Orders: Discharge Order (Routine); Ordered 02/05/20 Ordered By: Daniele Johnson/Other Patient Handouts: Heart Failure Signs of Flare-Up, Heart Failure Making Changes to ..., Heart Failure Dc, Heart Failure Sleep Problems Admission Data Admit Date/Time: 02/02/20 11:59 Attending Provider: Jagjit Clark Admit Provider: Glenn Kelley Primary Care Provider: Hi Henderson Other Providers: Glenn Kelley ; Bashir Oglesby Other Interventions: Discharge Summary Assessment (RN) Last Done: 02/05/20 16:00 Supervising Physician Co-Signing Physician Notes I personally examined the patient and verified all bishop points of history and exam, discussed case, and agree with decision making with Dr Arthur. feels well enough to go home. CT, ddx, etc reviewed with pt vitals noted nad heent nc at mmm breathing unlabored no accessory muscles good effort. no focal neuro deficits. skin no rashes no pallor or icterus acute on chronic diastolic chf -possibly baseline cardiomyopathy has progressed to create dyspnea - in addition to diuresis, adjust baseline regimen (hydralazine/imdur since can't use acei for afterload w CKD, and can't beta block further since HR 50's/60's -CKD4 likely a contributor -suspect baseline is worse than she realized, and admission was from acute overlay of acute on chronic chf -discussed possible benefit from thoracentesis - but questionable and she would prefer to hold off chronic afib - rate controlled, anticoagulated otherwise as above, stable for home but encouraged close pcp f/u and probably at least weekly labs Resident Activity Tracking Resident Involvement: Resident Care Provided Care Provided: Adult Hospital Medicine
--- NOTE | 2020-02-05 18:14 | Billing Data ---
Date of Service February 05, 2020 Coding Level of Care Code D/C Day Management <30 mins
[2020-02-06] MEDS ORDERED: BUMETANIDE 1 MG TAB PO SCH (09:00)
== END 2020-02-05 18:30 | disposition home or self-care (01) | DRG 291 ==
LOC: ED 09:21 → 2W 11:59 → SUATTDRO 11:59 → 2W 14:08

== ENCOUNTER 2020-03-01 15:50 | Inpatient (IN) ==
--- NOTE | 2020-03-01 16:25 | Emergency Department Note ---
History of Present Illness General Chief complaint: Abnormal Labs/Diagnostic Testing Stated complaint: ABNORMAL LABS Time Seen by Provider: 03/01/20 16:09 Source: patient and family History of Present Illness Provider complaint: Generalized weakness Onset (ago): month(s) Location: upper extremity, lower extremity, left and right Severity: moderate Pain Consistency: + constant Maximum Pain Intensity: 0 Quality: + other (Generalized weakness) Relieved By: + none Associated symptoms: no chest pain, no cough, no fever/chills, no headaches, no malaise, no nausea/vomiting and no shortness of breath This is a 74-year-old female sent by her doctor for further evaluation due to abnormal labs that were drawn yesterday. She does not know what labs were abnormal. She stated she was told she possibly may need dialysis. She only com plains of generalized weakness since September of this year. She has been in and out of the hospital for the same. She denies any fever, cough or cold symptoms, headache, chest pain, shortness of breath, abdominal pain, vomiting, diarrhea, black or bloody stools or urinary symptoms. She has had normal urinary output and states she goes about 6 times a day. She states her urine is not dark and has no pain with urination. Home Medications Medication Instructions Recorded Confirmed Type Eliquis 5 mg PO BID 02/02/20 03/01/20 History ferrous sulfate 325 mg PO BID 02/02/20 03/01/20 History bumetanide 3 mg PO QAM #90 tab 02/17/20 03/01/20 Rx carvedilol 6.25 mg PO BID #60 tab 02/17/20 03/01/20 Rx hydralazine 75 mg PO BID #60 tab 02/17/20 03/01/20 Rx isosorbide mononitrate 30 mg PO BID #60 tab 02/17/20 03/01/20 Rx melatonin 3 mg PO HS PRN #30 tab 02/17/20 03/01/20 Rx metolazone 5 mg PO DAILY@1330 #30 tab 02/17/20 03/01/20 Rx mirtazapine 15 mg PO HS #30 tab 02/17/20 03/01/20 Rx nifedipine [Procardia XL] 90 mg PO QAM #30 tab 02/17/20 03/01/20 Rx pantoprazole 40 mg PO DAILY #30 tab 02/17/20 03/01/20 Rx potassium chloride [Klor-Con M20] 20 meq PO BID #60 tab 02/17/20 03/01/20 Rx spironolactone 12.5 mg PO DAILY #30 tab 02/17/20 03/01/20 Rx terazosin 2 mg PO HS #30 cap 02/17/20 03/01/20 Rx Allergies Allergy/AdvReac Type Severity Reaction Status Date / Time hydrochlorothiazide AdvReac Severe hyponatremi Verified 03/01/20 17:33 a Past Med/Surg History Medical History Acute respiratory acidosis Anemia of chronic disease Aortic stenosis CKD (chronic kidney disease) baseline unknown but as of August 2018 at least CKD 3B w/ proteinuria HTN (hypertension) Hypertension PAF (paroxysmal atrial fibrillation) Pre-diabetes TIA (transient ischemic attack) Social History Smoking Status: Never smoker Hx Alcohol Use: No Hx Substance Use: No Preferred Language: Peruvian Communication Ability: Effective Primer Inspector Required: No Beliefs That Will Affect Care: Quaker Quaker Beliefs: Adventism and Cultural Cultural Beliefs: prefers women marital status: Current Living Situation: Spouse Other Information That Helps Us Care for You: No Feels Safe at Home: Yes Safety Concerns: Feels Safe At This Time Assistive Devices: Denture - Upper, Denture - Lower and Glasses Review of Systems See HPI for pertinent positives & negatives. and A total of 10 systems reviewed and were otherwise negative Physical Exam Vital Signs Vital Signs - 24 hr 03/01/20 15:53 03/01/20 16:33 03/01/20 16:54 Temperature 36.3 C L Temperature Source Oral Pulse Rate 50 L 49 L 51 L Respiratory Rate 18 13 18 Blood Pressure 160/63 H 155/67 H Blood Pressure Mean 95 113 Pulse Oximetry 95 95 Oxygen Delivery Method Room Air Sepsis Recent Fever Within 48 Hours No Sepsis New/Unexplained Change in Mental Status No Sepsis Action Taken by Nursing No Action Required 03/01/20 17:00 03/01/20 17:01 03/01/20 17:10 Temperature Temperature Source Pulse Rate 55 L 50 L 50 L Respiratory Rate 14 17 15 Blood Pressure 140/60 Blood Pressure Mean 96 Pulse Oximetry 95 Oxygen Delivery Method Sepsis Recent Fever Within 48 Hours Sepsis New/Unexplained Change in Mental Status Sepsis Action Taken by Nursing 03/01/20 17:20 03/01/20 17:30 03/01/20 17:31 Temperature Temperature Source Pulse Rate 53 L 54 L 54 L Respiratory Rate 16 17 16 Blood Pressure 155/58 H Blood Pressure Mean 101 Pulse Oximetry Oxygen Delivery Method Sepsis Recent Fever Within 48 Hours Sepsis New/Unexplained Change in Mental Status Sepsis Action Taken by Nursing 03/01/20 17:40 03/01/20 17:50 03/01/20 18:00 Temperature Temperature Source Pulse Rate 53 L 55 L 52 L Respiratory Rate 13 20 17 Blood Pressure 150/60 H Blood Pressure Mean 104 Pulse Oximetry 94 Oxygen Delivery Method Sepsis Recent Fever Within 48 Hours Sepsis New/Unexplained Change in Mental Status Sepsis Action Taken by Nursing 03/01/20 18:01 03/01/20 18:10 Temperature Temperature Source Pulse Rate 53 L 53 L Respiratory Rate 19 15 Blood Pressure Blood Pressure Mean Pulse Oximetry Oxygen Delivery Method Sepsis Recent Fever Within 48 Hours Sepsis New/Unexplained Change in Mental Status Sepsis Action Taken by Nursing Constitutional: Vital signs reviewed. Eyes: Pupils are equal round reactive to light. Conjunctiva are noninjected. ENT: Pharynx is clear without erythema or exudate. Mucous membranes are moist. Neck supple without meningeal signs. Respiratory: Clear to auscultation bilaterally. Breath sounds are equal bilaterally. Cardiovascular: Regular rate and rhythm. No rubs or gallops. GI: Soft, nondistended and nontender. Bowel sounds are present. Musculoskeletal: No peripheral edema. No lower extremity tenderness. Integumentary: No cyanosis. or jaundice. Neurological: The patient is awake and alert. No focal deficits. Psychiatric: Normal affect. Not anxious appearing. Course Administered Medications Acetaminophen (Acetaminophen 325 Mg Tab) 650 mg PO Q6H PRN PRN Reason: Pain Stop: 03/31/20 20:47 Last Admin: 03/01/20 21:18 Dose: 650 mg Documented by: [id number] Apixaban (Apixaban 5 Mg Tablet) 5 mg PO BID [facility] Stop: 03/31/20 20:59 Last Admin: 03/01/20 21:18 Dose: 5 mg Documented by: [id number] Carvedilol (Carvedilol 6.25 Mg Tab) 6.25 mg PO BID [facility] Stop: 03/31/20 20:59 Last Admin: 03/01/20 21:18 Dose: 6.25 mg Documented by: [id number] Ferrous Sulfate (Ferrous Sulfate 325 Mg Tab) 325 mg PO BID [facility] Stop: 03/31/20 20:59 Last Admin: 03/01/20 21:18 Dose: 325 mg Documented by: [id number] Hydralazine HCl (Hydralazine Hcl 25 Mg Tab) 75 mg PO BID [facility] Stop: 03/31/20 20:59 Last Admin: 03/01/20 21:17 Dose: 75 mg Documented by: [id number] Isosorbide Mononitrate (Isosorbide [place] Extended Rel 30 Mg Tabcr) 30 mg PO BID [facility] Stop: 03/31/20 20:59 Last Admin: 03/01/20 21:17 Dose: 30 mg Documented by: [id number] Mirtazapine (Mirtazapine Tab 15 Mg Tab) 15 mg PO HS [facility] Stop: 03/31/20 20:59 Last Admin: 03/01/20 21:17 Dose: 15 mg Documented by: [id number] Terazosin HCl (Terazosin Hcl 1 Mg Cap) 2 mg PO HS [facility] Stop: 03/31/20 20:59 Last Admin: 03/01/20 21:17 Dose: 2 mg Documented by: [id number] Medical Decision Making Differential Diagnosis NEETA, electrolyte abnormality, hyperkalemia, anemia, infection Medical Records Attestation: I reviewed the patient's medical records. I did perform a limited focused review of portions of the patient's old chart on the electronic medical record. The patient was admitted for CHF exacerbation last month. She had a creatinine of 4.6 on 1229. Home Medications Current Medication List: was personally reviewed by me Laboratory Data Attestation: I reviewed the patient's lab results. Result diagrams: 03/01/20 16:25 03/01/20 16:25 Lab Results 03/01/20 03/01/20 03/01/20 Range/Units 16:25 16:25 16:25 WBC 8.59 (4.8-10.8) K/uL RBC 2.92 L (4.2-5.4) M/uL Hgb 8.9 L (12.0-16.0) g/dL Hct 27.5 L (37-47) % MCV 94.2 (80-100) fL MCH 30.5 (25-34) pg MCHC 32.4 (32-36) g/dL RDW Std Deviation 54.9 H (36.4-46.3) fL RDW Coeff of Pam 15.8 H (11.5-14.5) % Plt Count 349 (130-400) K/uL MPV 10.5 H (7.4-10.4) fL Immature Gran % (Auto) 0.2 % Neut % (Auto) 53.1 % Lymph % (Auto) 28.4 % [place] % (Auto) 10.9 % Eos % (Auto) 6.8 % Baso % (Auto) 0.6 % Neut # (Auto) 4.56 (1.4-6.5) K/uL Lymph # (Auto) 2.44 (1.2-3.4) K/uL [place] # (Auto) 0.94 H (0.11-0.59) K/uL Eos # (Auto) 0.58 H (0-0.5) K/uL Baso # (Auto) 0.05 (0-0.2) K/uL Immature Gran # (Auto) 0.02 (0.00-0.02) K/uL PT 10.6 (9.0-12.0) Seconds INR 1.0 (0.9-1.1) APTT 30.8 (21.0-31.0) Seconds PTT Ratio 1.1 Sodium 136 (136-145) mmol/L Potassium 5.1 (3.5-5.1) mmol/L Chloride 103 (98-107) mmol/L Carbon Dioxide 25 (21-32) mmol/L Anion Gap 8.0 (3-11) BUN 115 H (7-18) mg/dl Creatinine 5.06 H* (0.6-1.2) mg/dl Est Cr Clr Drug Dosing 9.2 ml/min Est GFR ( Amer) 9.0 Est GFR (Non-Af Amer) 7.8 BUN/Creatinine Ratio 22.6 H (10-20) Glucose 110 H (70-99) mg/dl Calcium 8.9 (8.5-10.1) mg/dl Total Bilirubin 0.2 (0.2-1) mg/dl AST 16 (15-37) U/L ALT 25 (12-78) U/L Alkaline Phosphatase 75 (45-117) U/L Total Protein 7.7 (6.4-8.2) gm/dl Albumin 3.5 (3.4-5.0) gm/dl Globulin 4.2 H (2.5-4.0) gm/dl Albumin/Globulin Ratio 0.8 L (0.9-2) Imaging Data Radiologist's Impression: XR chest 1V portable CLINICAL HISTORY: eval for chf COMPARISON STUDY: Chest radiograph February 13, 2020. Chest CT February 14, 2020. FINDINGS: Lung volumes are normal. There is no pneumothorax. Small bilateral pleural effusions, left larger than right, have decreased in size since chest radiograph of February 13, 2020. Left basilar opacity is noted. There is minimal right basilar opacity. Moderate cardiomegaly is again noted. Lower lobe aeration has improved since prior examination. Mild interstitial pulmonary edema has also improved. Incidental note is made of multiple old left rib fractures. Skinfold project overs the right hemithorax. IMPRESSION: 1. Mild interstitial pulmonary edema, small bilateral pleural effusions and bibasilar opacities which have improved since chest radiograph of February 13, 2020. 2. Cardiomegaly. ACT 112: Negative or not required by law. Electronically signed by: Sander Mares M.D. 03/01/2020 4:46 PM Dictated: 03/01/201641 Transcribed: 03/01/201641 ECG Data Attestation: I personally reviewed and interpreted this ECG as follows: Indication: + other (Abnormal blood work) Rate (beats per minute): 50 Rhythm: + sinus bradycardia ECG ST segments: no ST elevation ECG Findings: + Peaked T waves (V2 to V5) and + Other (No widening of the QRS); no PVCs Comparison ECG Date: from (February 11, 2020) Change: no significant change MDM Narrative I did evaluate the patient as noted above. The patient complains of generalized weakness since September of last year. She was recently admitted for CHF. She states that her blood work from yesterday at her PCPs office was abnormal and she was told to come to the ED immediately. IV access was established. I did place an order for continuous cardiac monitoring. The monitor showed sinus bradycardia at a rate of 50. I did order and personally review the patient's 12-lead EKG as described above. She has some peaked T waves but these were present on her previous EKG from last month. I did order and personally reviewed the images of the patient's chest x-ray as described above. She has mild interstitial pulmonary edema and cardiomegaly. I did order a urine analysis. I did order and review the patient's blood work as noted in the electronic medical record. She does not have leukocytosis. Her hemoglobin is 8.9 which is stable for her. Her creatinine is 5.06 which is above her baseline. She has a normal potassium of 5.1. I did discuss the test results with the patient. I did recommend hospitalization for further care and evaluation. I did discuss case with the hospitalist and top case assembler. Impression & Plan Acute kidney injury superimposed on chronic kidney disease, Anemia Discharge Plan Visit Data Chief Complaint: Abnormal Labs/Diagnostic Testing Stated Complaint: ABNORMAL LABS ED Provider: Andrew Kessler Discharge Problem: Acute kidney injury superimposed on chronic kidney disease, Anemia Patient Disposition: Admitted As Inpatient Discharge Instructions Interventions: ED Discharge Assessment Last Done: 03/01/20 19:25
[2020-03-01 16:38] LABS: Basophils # (auto) 0.05 K/uL (0-0.2); Basophils % (auto) 0.6 %; Eosinophils # (auto) 0.58 K/uL (0-0.5); Eosinophils % (auto) 6.8 %; Hematocrit (blood only) 27.5 % (37-47); Hemoglobin 8.9 g/dL (12.0-16.0); Immature Granulocytes # (auto) 0.02 K/uL (0.00-0.02); Immature Granulocytes % (auto) 0.2 %; Lymphocytes # (auto) 2.44 K/uL (1.2-3.4); Lymphocytes % (auto) 28.4 %; Mean Corpuscular Hemoglobin 30.5 pg (25-34); Mean Corpuscular Hgb Conc 32.4 g/dL (32-36); Mean Corpuscular Volume 94.2 fL (80-100); Mean Platelet Volume 10.5 fL (7.4-10.4); Monocytes # (auto) 0.94 K/uL (0.11-0.59); Monocytes % (auto) 10.9 %; Neutrophils # (auto) 4.56 K/uL (1.4-6.5); Neutrophils % (auto) 53.1 %; Platelet Count 349 K/uL (130-400); RDW Coefficient of Variation 15.8 % (11.5-14.5); RDW Standard Deviation 54.9 fL (36.4-46.3); Red Blood Count 2.92 M/uL (4.2-5.4); White Blood Count 8.59 K/uL (4.8-10.8)
--- NOTE | 2020-03-01 16:47 | XRay Report ---
XR chest 1V portable CLINICAL HISTORY: eval for chf COMPARISON STUDY: Chest radiograph February 13, 2020. Chest CT February 14, 2020. FINDINGS: Lung volumes are normal. There is no pneumothorax. Small bilateral pleural effusions, left larger than right, have decreased in size since chest radiograph of February 13, 2020. Left basilar o pacity is noted. There is minimal right basilar opacity. Moderate cardiomegaly is again noted. Lower lobe aeration has improved since prior examination. Mild interstitial pulmonary edema has also improv ed. Incidental note is made of multiple old left rib fractures. Skinfold project overs the right feng thorax. IMPRESSION: 1. Mild interstitial pulmonary edema, small bilateral pleural effusions and bibasilar opacities which have improved since chest radiograph of February 13, 2020. 2. Cardiomegaly. ACT 112: Negative or not required by law. Electronically signed by: Sander Mares M.D. 03/01/2020 4:46 PM
[2020-03-01 16:50] LABS: Partial Thromboplastin Ratio 1.1; Partial Thromboplastin Time 30.8 Seconds (21.0-31.0); Prothrombin Time 10.6 Seconds (9.0-12.0)
[2020-03-01 17:19] LABS: Albumin Globulin Ratio 0.8 (0.9-2); Albumin Level 3.5 gm/dl (3.4-5.0); BUN Creatinine Ratio 22.6 (10-20); Bilirubin,Total 0.2 mg/dl (0.2-1); Calcium 8.9 mg/dl (8.5-10.1); Creatinine Clr Calc Pharmacy 9.2 ml/min; Est GFR (Non-African American) 7.8; Globulin 4.2 gm/dl (2.5-4.0); Potassium 5.1 mmol/L (3.5-5.1); Total Protein 7.7 gm/dl (6.4-8.2)
--- NOTE | 2020-03-01 18:27 | History & Physical Report ---
Date of Service March 01, 2020 Assessment & Plan (1) CKD (chronic kidney disease): Patient was noted to have worsening renal function. The cause of this is uncertain but is potential that patient is being over diuresed. Her outpatient regimen includes metolazone 5 mg daily, Bumex 3 mg daily, and spironolactone 12.5 mg daily. As the patient does not appear to be volume overloaded we will hold her diuretics for the evening. Will obtain a renal ultrasound to ensure there is no underlying obstructive uropathy. We will ask for nephrology consultation for further recommendations regarding her diuretics and declining renal function. (2) PAF (paroxysmal atrial fibrillation): Patient currently appears to be in sinus rhythm with a well-controlled heart rate. We will maintain her on her home dose of Coreg as well as continue her on her home dose of Eliquis. (3) HTN (hypertension): Patient's blood pressure is currently in an acceptable range. We will maintain her on her home dose of Coreg, hydralazine, isosorbide, and nifedipine. (4) CHF (congestive heart failure): Patient's congestive heart failure is noted to be diastolic in nature. She is currently well compensated in this regard. We will hold her diuretics as noted above until seen by nephrology. We will continue her on her home dose of Coreg. History of Present Illness Chief Complaint: My blood work is abnormal Primary Care Provider: Hi Henderson MD This is a 74-year-old female who was recently noted to [facility] in January 2020. During that hospitalization she was admitted due to hypertensive urgency. During that admission patient was noted to have an elevated creatinine. She was seen by the [facility] grill associate and felt that patient was at high risk for progression of her renal disease. Also there was a mention that she is followed as an outpatient by the heart failure clinic. Patient notes that she has been taking all of her medications as prescribed. She had routine blood work checked today and was called by her physician that her kidney function had deteriorated requiring admission to the hospital. I question the patient on numerous symptoms and she denies any weight gain, lower extremity swelling, difficulty urinating, nausea or vomiting, appetite changes, or back pain. Her labs from today were reviewed and her white blood cell count was noted to be 8.5. Her hemoglobin and hematocrit were 8.9 and 27.5. Platelet count was noted to be within the normal range. Chemistry profile revealed sodium and potassium are within normal range.Her BUN was noted to be 115 which was increased from a value of 78 on February 22.In addition her creatinine was noted to be 5.0 which was increased from 4.6 on February 22. EKG did not reveal any peaked T waves. Chest x-ray was performed and showed a small left pleural effusion. At the time of my interview the patient was resting comfortably in bed she offers no additional complaints. It is no intervention a Covid-19 test was performed and was noted to be negative. When discussing CODE STATUS with this patient and she notes in the event of cardiopulmonary arrest she did not wish CPR to be employed. She does note however that if her respiratory status should decline endotracheal intubation and mechanical ventilation is acceptable if felt to be a short-term modality. Her CODE STATUS will be ordered accordingly. Allergies Allergy/AdvReac Type Severity Reaction Status Date / Time hydrochlorothiazide AdvReac Severe hyponatremi Verified 03/01/20 17:33 a Home Medications Medication Instructions Recorded Confirmed Type Eliquis 5 mg PO BID 02/02/20 03/01/20 History ferrous sulfate 325 mg PO BID 02/02/20 03/01/20 History bumetanide 3 mg PO QAM #90 tab 02/17/20 03/01/20 Rx carvedilol 6.25 mg PO BID #60 tab 02/17/20 03/01/20 Rx hydralazine 75 mg PO BID #60 tab 02/17/20 03/01/20 Rx isosorbide mononitrate 30 mg PO BID #60 tab 02/17/20 03/01/20 Rx melatonin 3 mg PO HS PRN #30 tab 02/17/20 03/01/20 Rx metolazone 5 mg PO DAILY@1330 #30 tab 02/17/20 03/01/20 Rx mirtazapine 15 mg PO HS #30 tab 02/17/20 03/01/20 Rx nifedipine [Procardia XL] 90 mg PO QAM #30 tab 02/17/20 03/01/20 Rx pantoprazole 40 mg PO DAILY #30 tab 02/17/20 03/01/20 Rx potassium chloride [Klor-Con M20] 20 meq PO BID #60 tab 02/17/20 03/01/20 Rx spironolactone 12.5 mg PO DAILY #30 tab 02/17/20 03/01/20 Rx terazosin 2 mg PO HS #30 cap 02/17/20 03/01/20 Rx Past Med/Surg History Medical History (Updated 03/02/20 @ 08:51 by Kimberly Nguyen MD, PhD) Anemia of chronic disease Aortic stenosis CKD (chronic kidney disease) baseline unknown but as of August 2018 at least CKD 3B w/ proteinuria; as of Feb 2019 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 HTN (hypertension) admission for HTN urgency and for HTN emergency 01/2020 Hypertension PAF (paroxysmal atrial fibrillation) Pre-diabetes TIA (transient ischemic attack) Social History Smoking Status: Never smoker Hx Alcohol Use: No Hx Substance Use: No Preferred Language: Bolivian Communication Ability: Effective Cafe Site Attendant Required: No Beliefs That Will Affect Care: Religion Religion Beliefs: Religious and Cultural Cultural Beliefs: prefers women marital status: Current Living Situation: Spouse Other Information That Helps Us Care for You: No Feels Safe at Home: Yes Safety Concerns: Feels Safe At This Time Assistive Devices: None Review of Systems Constitutional: no fever, no body aches and no weakness Eyes: no diplopia Ear, Nose, Mouth, Throat: no ear pain Respiratory: no cough and no dyspnea Cardiovascular: no chest pain and no syncope Gastrointestinal: no abdominal pain, no early satiety, no nausea, no vomiting and no diarrhea/loose stools Genitourinary: no dysuria, no difficulty urinating and no urinary hesitancy Musculoskeletal: no back pain Integumentary: no rash Neurologic: no localized weakness and no seizure-like activity Physical Exam Constitutional: well developed and well nourished; no acute distress Eyes: no conjunctival abnormality No periorbital edema ENMT: Ears: no hearing impairment Neck: trachea midline No JVD Respiratory: normal respiratory effort and + respiratory distress; no labored breathing Slight decrease in the breath sounds were noted at the left base Cardiovascular: Rate/Rhythm: regular rate and regular rhythm Gastrointestinal (Abdomen): Percussion/Palpation: abdomen soft; abdomen nontender Musculoskeletal: No calf pain, no lower extremity edema Skin: no rashes, warm and dry Neurologic: CN's II-XI intact bilaterally and moves all extremities Psychiatric: A+Ox3, euthymic affect Results & Data Results & Data ([facility]) Vital Signs (Past 12 Hours) Vital Signs Temp Pulse Resp BP Pulse Ox 03/01/20 18:10 53 L 15 03/01/20 18:01 53 L 19 03/01/20 18:00 52 L 17 150/60 H 94 03/01/20 17:50 55 L 20 03/01/20 17:40 53 L 13 03/01/20 17:31 54 L 16 03/01/20 17:30 54 L 17 155/58 H 03/01/20 17:20 53 L 16 03/01/20 17:10 50 L 15 03/01/20 17:01 50 L 17 03/01/20 17:00 55 L 14 140/60 95 03/01/20 16:54 51 L 18 03/01/20 16:33 49 L 13 155/67 H 95 03/01/20 15:53 36.3 C L 50 L 18 160/63 H 95 Supervising Physician Co-Signing Physician Notes I personally saw and examined the patient. I verified all bishop points and agree with ALICIA Cole with the following exceptions and/or additions: 74 year old female here due to abnormal labs as an outpatient. Cr 5.06 from 4.6 on Feb 22. Initial worsening of CKD in January suspected to be from hypertensive emergency and appears to have progressed since then. She is asymptomatic, no urinary symptoms. O/E dry mucus membranes, no CVA tenderness or abdominal pain. HS1+2, bradycardia, ESM loudest at LUSB 5/6, reduced breath sounds left base but otherwise clear to auscultation and no respiratory distress A/P CKD - rapid worsening of CKD, suspect somewhat overdiuresed at the present time and diuretics placed on hold pending nephrology review in AM. No uremic encephalopathy suspected despite BUN 115. Renal US to r/o obstructive cause although this is of low likelihood. No indication of urgent dialysis at the present time. PG Care Time/CCT Total # of Minutes Spent Total Time Spent with Patient: Total time spent is greater than 50% in coordination of care (as documented) at patient's floor/unit and/or counseling patient: Coding Level of Care Code 22590 Initial Inpt Care Lvl 3 Diagnoses CKD (chronic kidney disease) N18.9 Chronic kidney disease stage: unspecified stage PAF (paroxysmal atrial fibrillation) I48.0 HTN (hypertension) I10 Hypertension type: essential hypertension CHF (congestive heart failure) I50.9 (1) CKD (chronic kidney disease) Chronic kidney disease stage: unspecified stage Qualified Code(s): N18.9 - Chronic kidney disease, unspecified (2) HTN (hypertension) Hypertension type: essential hypertension Qualified Code(s): I10 - Essential (primary) hypertension
--- NOTE | 2020-03-01 20:21 | Ultrasound Report ---
RENAL ULTRASOUND CLINICAL HISTORY: CKD/NEETA COMPARISON STUDY: Doppler renal ultrasound February 09, 2020. TECHNIQUE: Sonography of the kidneys and the urinary bladder was performed. FINDINGS: This exam is compromised by suboptimal penetration but there is no hydronephrosis. The righ t kidney measures approximately 11.1 x 4.9 x 4.1 cm and the left kidney measures 8.1 x 4.8 x 3.7 cm. Both kidneys are echogenic. Left kidney is largely obscured. Both ureteral jets were identified. Inci dental note is made of a left pleural effusion. IMPRESSION: 1. No hydronephrosis. 2. Exam compromised by suboptimal penetration. Left kidney largely obscured. 3. Echogenic kidneys. 4. Left pleural effusion. ACT 112: Negative or not required by law. Electronically signed by: Sander Mares M.D. 03/01/2020 8:20 PM
[2020-03-01] MEDS ORDERED: MELATONIN 3 MG TAB PO PRN (20:28)
[2020-03-01] MEDS ORDERED: ACETAMINOPHEN 325 MG TAB PO PRN (20:48)
[2020-03-01] MEDS ORDERED: MIRTAZAPINE TAB 15 MG TAB PO SCH (21:00)
[2020-03-01] MEDS ORDERED: TERAZOSIN HCL 1 MG CAP PO SCH (21:00)
[2020-03-01] MEDS: hydrALAZINE HCL 25 MG TAB PO SCH (21:17)
[2020-03-01] MEDS: ISOSORBIDE MONO EXTENDED REL 30 MG TABCR PO SCH (21:17)
[2020-03-01] MEDS: APIXABAN 5 MG TABLET PO SCH (21:18)
[2020-03-01] MEDS: FERROUS SULFATE 325 MG TAB PO SCH (21:18)
[2020-03-01] MEDS: carvediloL 6.25 MG TAB PO SCH (21:18)
[2020-03-02] MEDS: FERROUS SULFATE 325 MG TAB PO SCH (07:42)
[2020-03-02] MEDS: carvediloL 6.25 MG TAB PO SCH (07:43)
[2020-03-02] MEDS: APIXABAN 5 MG TABLET PO SCH (07:43)
[2020-03-02 07:44] LABS: Basophils # (auto) 0.02 K/uL (0-0.2); Basophils % (auto) 0.4 %; Eosinophils # (auto) 0.47 K/uL (0-0.5); Eosinophils % (auto) 8.4 %; Hematocrit (blood only) 24.1 % (37-47); Hemoglobin 7.8 g/dL (12.0-16.0); Lymphocytes # (auto) 2.04 K/uL (1.2-3.4); Lymphocytes % (auto) 36.4 %; Mean Corpuscular Hemoglobin 30.5 pg (25-34); Mean Corpuscular Hgb Conc 32.4 g/dL (32-36); Mean Corpuscular Volume 94.1 fL (80-100); Mean Platelet Volume 10.7 fL (7.4-10.4); Monocytes # (auto) 0.43 K/uL (0.11-0.59); Monocytes % (auto) 7.7 %; Neutrophils # (auto) 2.64 K/uL (1.4-6.5); Neutrophils % (auto) 47.1 %; Platelet Count 309 K/uL (130-400); RDW Coefficient of Variation 15.8 % (11.5-14.5); RDW Standard Deviation 54.6 fL (36.4-46.3); Red Blood Count 2.56 M/uL (4.2-5.4)
[2020-03-02] MEDS: hydrALAZINE HCL 25 MG TAB PO SCH (07:46)
[2020-03-02] MEDS: ISOSORBIDE MONO EXTENDED REL 30 MG TABCR PO SCH (07:46)
[2020-03-02 08:07] LABS: BUN Creatinine Ratio 22.5 (10-20); Calcium 8.6 mg/dl (8.5-10.1); Creatinine Clr Calc Pharmacy 9.4 ml/min; Est GFR (African American) 9.2; Est GFR (Non-African American) 7.9; Magnesium 3.7 mg/dl (1.8-2.4); Potassium 4.4 mmol/L (3.5-5.1)
[2020-03-02 08:27] LABS: RBC Morphology Unremarkable
--- NOTE | 2020-03-02 08:59 | Nephrology Consultation ---
Date of Consultation March 02, 2020 Assessment & Plan (1) Acute kidney injury superimposed on chronic kidney disease: Essentially CKD 5 now and needs to make decisions about care moving forwa rd: essentially dialysis or no dialysis. whether or not we start dialysis this admission, this concern is on the horizon. chemistries acceptable; remains volume overloaded but clinically stable (ie, on RA, no HTN urgency) for now >> this will not last long off of diuretics and will resume. -ordered bumex 0.5 mg IV bid17; metolazone 2.5 mg daily; hold andi antag for now -daily bmp -agree w/ renal diet; FR and standing wts as below -avoid nephrotoxins unless life/limb saving -will recommend she f/u with our nephro group as OP since Dr Travis does not have privileges here and she has been hospitalized here repeatedly -very challenging historically to discuss goals of care at this patient during a pandemic when her family cannot be present. re consideration of palliative care consult to assist with discussion of goals of care, particularly with regard to starting dialysis or not I spent over 30 min this evenign discussing kidney function status and volume status with pt and her son. Dr Serrano was present for much of this discussion. Pt is very eager for d/c home. not sure what she wishes to do about dialysis or not but she and her son understand this will be an important decision to make in next several days so that we can plan accordingly. Also they are considering hospice -d/c on standard OP diuretics, same as prior to admission -continue fluid limit, daily wts, low sodium diet same as prior to admission -check bmp early next week -I will arrange f/u appt telephonic with pt and her son for early next week; recommend she follow w/ jasmin owusu and not dr travis for continuity of care -agree w/ discussino of goals of care ongoing -including w/ OP palliative encounters -cont HF clinic f/u -can reach our clinic at [phone] if questions/concerns about appt Care coordinated w/ Dr Serrano Present on Admission?: Yes (2) Anemia of chronic disease: has refused recommended colonoscopy in the past. had iron load IV last admission; agree w/ rechecking sats. at least some if this is likely anemia of ESRD; other components likely/possible as well -hgb at least q48 hrs -f/u t stn Present on Admission?: Yes (3) Volume overload: she is in no way overdiuresed; in fact remains volume overloaded. She has pulmonary edema and BL pleural effusions on CXR (all improved since last admission and now on RA instead of needing 02NC) and is hypertensive off of diu retics. -ordered FR 1.5L -needs DAILY STANDING wts pls -needs strict I/O Present on Admission?: Yes (4) HTN (hypertension): goal < 140 systolic and ideally should be <130. not at goal; at risk for recurrent HTN urgency -cont coreg, hydrlazine, nifedipine, alpha hilaria curretn doses -resume diuretics as above Present on Admission?: Yes (5) Anemia: History of Present Illness Reason for Consultation: worsening renal function in pt w/ advanced CKD Requesting Physician: Dr Lua Attending Physician: Camden Lua MD History of Present Illness 74 y/o F whom I am asked to see for worsening renal function was admitted last evening after outpatient provider noted worsening renal bloodwork: HF clinic labs showed creatinine 5 and BUN 115. She recently had 2 admissions here including an extended stay late last month for hypertensive emergency and volume overload in the setting of advanced renal disease. Dialysis was contemplated during that visit but ultimately deferred. Other PMH includes HL, HTN, HFpEF, paroxysmal a fib, aortic stenosis, TIA, anemia of chronic disease for which she has in the past refused GI workup; admitted here summer 2018 for hyponatremia w/ presenting sodium 117. Her discharge weight at last admission was 74.2 kg on a standing scale. Shee was given heart failure teaching at discharge and sent home on a 1.5 L fluid limit, less than 2 g daily sodium diet, and diuretics. Her discharge creatinine was 3.5. She had an outpatient lab check on February 22 with [facility] physician group heart failure clinic with with a creatinine of 4.6. She was deemed euvolemic at that clinic visit and diuretics were continued. She weighed 75.2 kg at that visit and had a blood pressure of 160/60 with heart rate of 52. Next labs on March 01 show a creatinine of 5.1, essentially unchanged this morning at 5.0. Her outpatient diuretics include metolazone 5 mg daily, Bumex 3 mg daily, spironolactone 12.5 mg daily: These medications were held at admission. She follows with non-[facility] employment adjudicator, Dr. Travis. At the last admission there were considerable challenges obtaining outpatient records, including documentation of baseline renal function or recent nephrology clinic notes despite multiple requests. Her son was at bedside at [facility] this evening; pt is adamant about going home. Allergies Allergy/AdvReac Type Severity Reaction Status Date / Time hydrochlorothiazide AdvReac Severe hyponatremi Verified 03/01/20 17:33 a Home Medications Medication Instructions Recorded Confirmed Type Eliquis 5 mg PO BID 02/02/20 03/01/20 History ferrous sulfate 325 mg PO BID 02/02/20 03/01/20 History bumetanide 3 mg PO QAM #90 tab 02/17/20 03/01/20 Rx carvedilol 6.25 mg PO BID #60 tab 02/17/20 03/01/20 Rx hydralazine 75 mg PO BID #60 tab 02/17/20 03/01/20 Rx isosorbide mononitrate 30 mg PO BID #60 tab 02/17/20 03/01/20 Rx melatonin 3 mg PO HS PRN #30 tab 02/17/20 03/01/20 Rx metolazone 5 mg PO DAILY@1330 #30 tab 02/17/20 03/01/20 Rx mirtazapine 15 mg PO HS #30 tab 02/17/20 03/01/20 Rx nifedipine [Procardia XL] 90 mg PO QAM #30 tab 02/17/20 03/01/20 Rx pantoprazole 40 mg PO DAILY #30 tab 02/17/20 03/01/20 Rx potassium chloride [Klor-Con M20] 20 meq PO BID #60 tab 02/17/20 03/01/20 Rx spironolactone 12.5 mg PO DAILY #30 tab 02/17/20 03/01/20 Rx terazosin 2 mg PO HS #30 cap 02/17/20 03/01/20 Rx Patient History Medical History (Updated 03/02/20 @ 08:51 by Kimberly Nguyen MD, PhD) Anemia of chronic disease Aortic stenosis CKD (chronic kidney disease) baseline unknown but as of August 2018 at least CKD 3B w/ proteinuria; as of Feb 2019 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 HTN (hypertension) admission for HTN urgency and for HTN emergency 01/2020 Hypertension PAF (paroxysmal atrial fibrillation) Pre-diabetes TIA (transient ischemic attack) Social History Smoking Status: Never smoker Hx Alcohol Use: No Hx Substance Use: No Preferred Language: Brazilian Communication Ability: Effective Associate Professor Of Musicology Required: No Beliefs That Will Affect Care: Latter-Day Latter-Day Beliefs: Shant and Cultural Cultural Beliefs: prefers women marital status: Current Living Situation: Spouse Other Information That Helps Us Care for You: No Feels Safe at Home: Yes Safety Concerns: Feels Safe At This Time Assistive Devices: None Review of Systems Review of Systems: All systems reviewed & are unremarkable except as noted in HPI & below Respiratory: + dyspnea on exertion; no cough and no dyspnea Cardiovascular: + dyspnea on exertion and + edema (but improved); no chest pain, no palpitations and no syncope Genitourinary: no dysuria, no difficulty urinating and no urinary frequency Physical Exam Constitutional: well developed and well nourished; no acute distress Eyes: EOM intact bilaterally ENMT: Ears: no external ear abnormality Nose: no external nose abnormality Mouth: + dry oral mucous membranes Neck: no nuchal rigidity Respiratory: normal respiratory effort (on RA sitting in bed) Auscultation: + diminished lung sounds and + crackles (bibasilar) Cardiovascular: Rate/Rhythm: regular rate and regular rhythm Heart Sounds: + murmur Extremities: + edema (trace-1+) Gastrointestinal (Abdomen): Inspection/Auscultation: normal bowel sounds Percussion/Palpation: abdomen soft; abdomen nontender Musculoskeletal: Extremities: strength 5/5 throughout (maneuvers readily for exam) Skin: no rashes, warm and dry Neurologic: ingram, fluent speech, no tremor Psychiatric: Orientation: alert and oriented x 3 Speech: normal rate/rhyth m/volume of speech Results & Data ([facility]) Vital Signs (Past 12 Hours) Vital Signs Temp Pulse Pulse Resp BP Pulse Ox 03/02/20 07:36 36.5 C 89 16 150/63 H 94 03/02/20 00:39 48 L 03/01/20 23:56 36.6 C 56 L 16 113/53 L 93 03/01/20 21:33 54 L 03/01/20 20:32 36.4 C L 55 L 16 172/75 H 93 Laboratory Results 03/02/20 06:45 03/02/20 06:45 Diagnostic Findings CXR FINDINGS: Lung volumes are normal. There is no pneumothorax. Small bilateral pleural effusions, left larger than right, have decreased in size since chest radiograph of February 13, 2020. Left basilar opacity is noted. There is minimal right basilar opacity. Moderate cardiomegaly is again noted. Lower lobe aeration has improved since prior examination. Mild interstitial pulmonary edema has also improved. Incidental note is made of multiple old left rib fractures. Skinfold project overs the right hemithorax. IMPRESSION: 1. Mild interstitial pulmonary edema, small bilateral pleural effusions and bibasilar opacities which have improved since chest radiograph of February 13, 2020 2. Cardiomegaly. Renal u/s unremarkable (1) Anemia Anemia type: due to chronic kidney disease Chronic kidney disease stage: unspecified stage Qualified Code(s): N18.9 - Chronic kidney disease, unspecified; D63.1 - Anemia in chronic kidney disease (2) HTN (hypertension) Hypertension type: essential hypertension Qualified Code(s): I10 - Essential (primary) hypertension (3) Volume overload Hypervolemia type: other Qualified Code(s): E87.79 - Other fluid overload
[2020-03-02] MEDS ORDERED: metOLazone 2.5 MG TABLET PO SCH (09:00)
[2020-03-02] MEDS ORDERED: NIFEdipine EXTENDED REL 30 MG TABCR PO SCH (09:00)
[2020-03-02] MEDS ORDERED: PANTOprazole 40 MG TAB PO SCH (09:00)
[2020-03-02] MEDS: BUMETANIDE 0.5 MG in SYRINGE 0 ML IV SCH ×2 (09:23→17:11)
[2020-03-02 09:30] LABS: Ferritin 438.2 ng/ml (8-388)
[2020-03-02 09:36] LABS: Folate (Folic Acid) 19.6 ng/ml (>5.38)
[2020-03-02 09:46] LABS: Appearance Urine Clear (Clear); Bacteria Urine Automated Negative (Negative); Bilirubin Urine Negative (Negative); Blood Urine Negative (Negative); Color Urine Yellow; Epithelial Cell Urine Auto >30 /lpf (0-5); Glucose Urine UA Negative (Negative); Ketones Urine Negative (Negative); Leukocyte Esterase Urine 2+ (Negative); Nitrite Urine Negative (Negative); Protein Urine 3+ (Negative); Specific Gravity Urine 1.018 (1.000-1.030); Urobilinogen Urine Negative (Negative)
[2020-03-02 10:22] LABS: Creatinine Urine Random 61.8 mg/dl
--- NOTE | 2020-03-02 11:58 | Electrocardiogram Report ---
Test Reason : Blood Pressure : / mmHG Vent. Rate : 048 BPM Atrial Rate : 048 BPM P-R Int : 208 ms QRS Dur : 108 ms QT Int : 476 ms P-R-T Axes : 098 -07 065 degrees QTc Int : 425 ms Poor data quality, interpretation may be adversely affected Sinus bradycardia Anterolateral infarct (cited on or before 10-FEB-2020) Abnormal ECG When compared with ECG of 11-FEB-2020 06:49, T wave inversion no longer evident in Lateral leads Confirmed by Bashir Oglesby ([id number]) on 03/02/2020 11:58:27 AM Referred By: REFERRED SELF Confirmed By:Bashir Oglesby
--- NOTE | 2020-03-02 13:00 | Hospitalist Progress Note ---
Date of Service March 02, 2020 Assessment & Plan (1) Volume overload: Bety Chaidez is a74 year old woman with a past medical history of CHF and CKD who presents with progression of her CKD. Acute on Chronic Renal Injury -Creatinine elevated to 5, electrolytes still within normal limits, some degree of fluid overload but not causing any hypoemic respiratory failure or subjective shortness of breath -Nephrology evaluated patient and believes that she is fluid overloaded at present and restarted patient's diuresis bumex .5 mg BID metolazone and is holding spironolactone. -Strict I's and O's -had long discussion today and patient is noncommittal in her decision about dialysis but it appears we are at a fork in the road where she would need to make a decision soon before the time comes where she may need emergent dialysis -Family leaving it up to her but are concerned she will not make a decision either way without them physically present. -Patient agrees to a palliative consult to further help with this decision Anemia Normocytic; Anemia of Chronic disease and End stage renal failure Iron panel ordered, FOBT for all stools to look at other causes May benefit from iron and EPO CHF Patient appears volume overloaded at present clinically Diuresis resumed bumex .5mg BID Continuing coreg, metolazone HTN Will continue current antihypertensive regime with bumex, metolazone, nifedipine, coreg, and hydralazine Will need to monitor closely Paroxysmal A fib Continuing home co reg Continuing anticoagulation with apixaban Rate well controlled at present DVT Ppx: Apixaban F/E/N: Renal Diet Dispo: Will need to make decision about dialysis, palliative care consulted for further discussion and family will try to help from a distance. COnditional code, okay with intubation nothing else (2) Acute kidney injury superimposed on chronic kidney disease: (3) Anemia: (4) CHF (congestive heart failure): (5) Anemia of chronic disease: (6) CKD (chronic kidney disease): Admission and Anticipated Discharge Date Admission Date: March 01, 2020 Supervising Physician Co-Signing Physician Notes Attending attestation Pt seen and examined in concert with Dr. Serrano. In agreement with the documented findings as noted in the resident documentation with any exceptions or additions as noted here. Resting comfortably in bed without acute complaint, though she is somewhat difficult to miranda history from. On examination, S1/S2 nl RRR 3/6 ANAHY. CTAB. Abd NT/ND BS+ve Acute on chronic kidney disease - nephrology consultation appreciated - diuretic mgmt as noted. Monitor I/Os. Goals of care pending. Else see resident documentation as noted. Subjective Bety is doing well this morning with no complaints. She tells me she has had progressive fatigue over the last month or so but denies any shortness of breath, leg swelling, abdominal pain, nausea, vomiting, diarrhea or chest pain. Tells me she has not been urinating much. We had a long discussion about dialysis and she is very noncommittal. She says she has thought about this in the past and has never made up her mind but leaned away from having dialysis. When discussed that the alternative would likely to be home on hospice care and a shortened life expectancy she shrugs. Review of Systems Review of Systems: All systems reviewed & are unremarkable except as noted in HPI & below Physical Exam Constitutional: well developed and well nourished Eyes: PERRL, conjunctivae normal, anicteric sclerae Respiratory: normal respiratory effort; no respiratory distress and no labored breathing Auscultation: + rales (Bilateral bases ) Cardiovascular: Rate/Rhythm: regular rate and regular rhythm Heart Sounds: + murmur (Loud systolic murmur best heard left sternal border); no click, no gallop and no cardiac rub Extremities: + edema (Bilateral 1+ lower extremity edema); no calf tenderness Gastrointestinal (Abdomen): normal bowel sounds, soft, nontender, no hepatosplenomegaly Results & Data Results & Data ([facility]) Vital Signs (Past 12 Hours) Vital Signs Temp Pulse Resp BP Pulse Ox 03/02/20 11:52 36.7 C 44 L 16 141/58 H 92 03/02/20 07:36 36.5 C 89 16 150/63 H 94 Resident Activity Tracking Resident Involvement: Resident Care Provided Care Provided: Adult Hospital Medicine (1) Anemia Anemia type: due to chronic kidney disease Chronic kidney disease stage: unspecified stage Qualified Code(s): N18.9 - Chronic kidney disease, unspecified; D63.1 - Anemia in chronic kidney disease (2) CKD (chronic kidney disease) Chronic kidney disease stage: unspecified stage Qualified Code(s): N18.9 - Ch ronic kidney disease, unspecified (3) Volume overload Hypervolemia type: other Qualified Code(s): E87.79 - Other fluid overload
--- NOTE | 2020-03-02 17:34 | Discharge Summary ---
Date of Service March 02, 2020 Admission HPI Per Admitting Provider This is a 74-year-old female who was recently noted to [facility] in January 2020. During that hospitalization she was admitted due to hypertensive urgency. During that admission patient was noted to have an elevated creatinine. She was seen by the [facility] seed analyst and felt that patient was at high risk for progression of her renal disease. Also there was a mention that she is followed as an outpatient by the heart failure clinic. Patient notes that she has been taking all of her medications as prescribed. She had routine blood work checked today and was called by her physician that her kidney function had deteriorated requiring admission to the hospital. I question the patient on numerous symptoms and she denies any weight gain, lower extremity swelling, difficulty urinating, nausea or vomiting, appetite changes, or back pain. Her labs from today were reviewed and her white blood cell count was noted to be 8.5. Her hemoglobin and hematocrit were 8.9 and 27.5. Platelet count was noted to be within the normal range. Chemistry profile revealed sodium and potassium are within normal range.Her BUN was noted to be 115 which was increased from a value of 78 on February 22.In addition her creatinine was noted to be 5.0 which was increased from 4.6 on February 22. EKG did not reveal any peaked T waves. Chest x-ray was performed and showed a small left pleural effusion. At the time of my interview the patient was resting comfortably in bed she offers no additional complaints. It is no intervention a Covid-19 test was performed and was noted to be negative. When discussing CODE STATUS with this patient and she notes in the event of cardiopulmonary arrest she did not wish CPR to be employed. She does note however that if her respiratory status should decline endotracheal intubation and mechanical ventilation is acceptable if felt to be a short-term modality. Her CODE STATUS will be ordered accordingly. Admission Exam Per Admitting Provider Constitutional: well developed and well nourished; no acute distress Eyes: no conjunctival abnormality No periorbital edema ENMT: Ears: no hearing impairment Neck: trachea midline No JVD Respiratory: normal respiratory effort and + respiratory distress; no labored breathing Slight decrease in the breath sounds were noted at the left base Cardiovascular: Rate/Rhythm: regular rate and regular rhythm Gastrointestinal (Abdomen): Percussion/Palpation: abdomen soft; abdomen nontender Musculoskeletal: No calf pain, no lower extremity edema Skin: no rashes, warm and dry Neurologic: CN's II-XI intact bilaterally and moves all extremities Psychiatric: A+Ox3, euthymic affect Principal Diagnosis Chronic Renal Failure Discharge Exam Constitutional: well developed and well nourished; no acute distress Eyes: no conjunctival abnormality No periorbital edema ENMT: Ears: no hearing impairment Neck: trachea midline Some jugular venous distension about 2 cmabove the clavicle Respiratory: mild respiratory distress; no labored breathing bilateral rales in lung bases Cardiovascular: Rate/Rhythm: regular rate and regular rhythm bilateral pitting edema of lower extremity Gastrointestinal (Abdomen): Percussion/Palpation: abdomen soft; abdomen nontender Musculoskeletal: No calf pain, no lower extremity edema Skin: no rashes, warm and dry Neurologic: CN's II-XI intact bilaterally and moves all extremities Psychiatric: A+Ox3, euthymic affect Discharge Data Allergies Allergy/AdvReac Type Severity Reaction Status Date / Time hydrochlorothiazide AdvReac Severe hyponatremi Verified 03/01/20 17:33 a Consultations 03/01/20 17:27 ED Decision to Admit Stat 03/01/20 21:21 Consult Nephrology Routine Ordered Studies 03/01/20 18:41 US renal/blad retro comp Stat Hospital Course (1) Volume overload: Bety Chaidez is a74 year old woman with a past medical history of CHF and CKD who presents with progression of her CKD. Acute on Chronic Renal Injury -Creatinine elevated to 5, electrolytes still within normal limits, some degree of fluid overload but not causing any hypoemic respiratory failure or subjective shortness of breath -Nephrology agree that patient is fluid overloaded -had long discussion today and patient is noncommittal in her decision about dialysis but it appears we are at a fork in the road where she would need to make a decision soon before the time comes where she may need emergent dialysis -Family leaving it up to her but are concerned she will not make a decision either way without them physically present so I arranged with clinical coordinators to allow a family member in with her. After long discussion patient is not entirely sure but does not think she wants to try dialysis, arrangements were made for outpatient palliative care follow up. -Dr. Nguyen of [facility] nephrology spoke with patient and left her the option to go for dialysis should she make that decision after going home with family and discussing. Will schedule appt with her office for next week and left phone number for her to call in discharge instructions -Despite risks associated with going home and benefit of staying in hospital for close monitoring should she choose dialysis, she is adamant in clear that above all else she wants to go home and she assumes these risks and her focus is on family and comfort. -Will continue home diuresis regime she was on prior to admission as she still appears to be fluid overloaded and this will only get worse as kidneys continue to fail CHF Patient appears volume overloaded at present clinically Will resume home diuresis HTN Will continue current antihypertensive regime with bumex, metolazone, nifedipine, coreg, and hydralazine Paroxysmal A fib Continuing home co reg Continuing anticoagulation with apixaban Rate well controlled at present DIET dialysis renal diet, fluid restriction to 1200 ml as tolerated (2) Acute kidney injury superimposed on chronic kidney disease: (3) Anemia: (4) CHF (congestive heart failure): (5) Anemia of chronic disease: (6) CKD (chronic kidney disease): Total Time Total Time Spent Total Time Spent (In Minutes): 90 Discharge Plan Discharge Items Patient Disposition: Home - Self-Care Reason For Visit: CKD Discharge Diagnosis: Chronic Renal Failure Activity: Per Instructions section Non-emergency contact: Primary Care Provider and Technical Sales Support Specialist Call non-emergency contact if: you have any medication questions and your symptoms worsen Follow-up/Referrals: Hi Henderson MD [Primary Care Provider] - Diet: Dialysis Renal and Low Sodium (2gm) Fluids: 1200ml (5 cups) Ambulatory Orders: Complete Blood Count with Diff (Routine) Timeframe: 5 Days Location: Determined by Patient Ordered By: Vicente Serrano Comprehensive Metabolic Panel (Routine) Timeframe: 5 Days Location: Determined by Patient Ordered By: Vicente Serrano Addtl Attending Provider Instructions: Ms. Chaidez it was our pleasure meeting you and treating you for your chronic renal failure. As we have discussed at great length, we are starting to reach a fork in the roads in regards to your care. Your kidneys which have long been failing are reaching a point where they are near shutting down completely. When kidneys fail, it can cause your body to hang onto a large amount of fluid which you might notice in shortness of breath and leg swelling. It can also lead to some electrolytes or salts in your body to accumulate which can cause heart rhythm issues and even . Once the kidneys begin to fail to this extent the only treatment to prolong life would be dialysis. As we have discussed some people choose to go down the road of dialysis because they have a good quality of life and want to spend more time with the people they love and some people choose not to get dialysis and to focus on spending the time they do have left with family and comfortable as opposed to spending large amount of times in dialysis offices. Both of these decisions are totally valid and we will support you whatever you choose but we are getting close to a point where we are running out of time to initiate dialysis on a safe pre emptive way. After discussing it with the seed analyst, you and your son Jeferson it sounds like for right now you want to be home and with family and will make a decision with your family. While I would prefer that you stay for safe watching here in the hospital so we could begin dialysis in a controlled way I can also totally understand your desires to be home and with your people given the importance of this decision. We will send you home on your current medication regime and I will have our nurse navigator set up appointments to see Dr. Nguyen (The kidney doctor) in her clinic as well as the palliative care team who can further help you discuss and setup options like hospice should you choose to go that route. In the meantime I would suggest that you measure all of your weights on a daily basis and keep track of any leg swelling and shortness of breath that you may have. Should you have any questions before your appointment with nephrology (kidney doctor) Please call this number to get a hold of them and ask any questions that may come up (Dr. Nguyen) We would recommend getting some blood work early next week which i will order and you can get here in our lab. Pending Studies at Discharge: No Stand-Alone Forms: [employer], Smoking Cessation Medications and DC Order Prescriptions: Continued Eliquis 5 mg tablet 5 mg PO BID RF: 0 ferrous sulfate 325 mg (65 mg iron) tablet 325 mg PO BID RF: 0 nifedipine [Procardia XL] 30 mg Tablet Extended Release 24hr 90 mg PO QAM Qty: 30 RF: 0 carvedilol 6.25 mg Tablet 6.25 mg PO BID Qty: 60 RF: 0 isosorbide mononitrate 30 mg Tablet Extended Release 24 Hr 30 mg PO BID Qty: 60 RF: 0 metolazone 5 mg Tablet 5 mg PO DAILY@1330 Qty: 30 RF: 0 Hold Instructions: NEETA hydralazine 25 mg Tablet 75 mg PO BID Qty: 60 RF: 0 melatonin 3 mg Tablet 3 mg PO HS PRN (Reason: sleep) Qty: 30 RF: 0 terazosin 1 mg Capsule 2 mg PO HS Qty: 30 RF: 0 spironolactone 25 mg Tablet 12.5 mg PO DAILY Qty: 30 RF: 0 Hold Instructions: NEETA potassium chloride [Klor-Con M20] 20 mEq Tablet,Er Particles/Crystals 20 meq PO BID Qty: 60 RF: 0 pantoprazole 40 mg Tablet,Delayed Release (Dr/Ec) 40 mg PO DAILY Qty: 30 RF: 0 bumetanide 1 mg Tablet 3 mg PO QAM Qty: 90 RF: 0 mirtazapine 15 mg Tablet 15 mg PO HS Qty: 30 RF: 0 Discharge Orders: Discharge Order (Routine); Ordered 03/02/20 Ordered By: Vicente Serrano Admission Data Admit Date/Time: 03/01/20 18:41 Attending Provider: Camden Lua Admit Provider: Glenn Kelley Primary Care Provider: Hi Henderson Other Providers: Glenn Kelley ; Kimberly Nguyen Other Interventions: Discharge Summary Assessment (RN) Last Done: 03/02/20 17:16 Supervising Physician Co-Signing Physician Notes Attending attestation Pt seen and examined in concert with Dr. Serrano. In agreement with the documented findings as noted in the resident documentation with any exceptions or additions as noted here. Resting comfortably in bed without acute complaint, though she is somewhat difficult to miranda history from. On examination, S1/S2 nl RRR 3/6 ANAHY. CTAB. Abd NT/ND BS+ve Acute on chronic kidney disease - nephrology consultation - significant renal injury likely requiring dialysis, patient defers presently and requests transition to outpatient care after discussions of pros/cons and outcomes with team as noted. Else see resident documentation as noted. Resident Activity Tracking Resident Involvement: Resident Care Provided Care Provided: Adult Hospital Medicine
--- NOTE | 2020-03-08 10:32 | Coding Query ---
CONGESTIVE HEART FAILURE To Promote full compliance with coding requirements relating to patient care, physician participation is requested in all cases of patternator uncertainty. Please assist us with the following questions. A diagnosis of Congestive Heart Failure is documented in the patient's medical record. The H&P documents, " Patient's congestive heart failure is noted to be diastolic in nature. She is currently well compensated in this regard. We will hold her diuretics as noted above until seen by nephrology", and Nephrology Consult documents, "Volume overload: she is in no way overdiuresed; in fact remains volume overloaded. She has pulmonary edema and BL pleural effusions on CXR (all improved since last admission and now on RA instead of needing 02NC) and is hypertensive off of diuretics", and the Discharge Summary documents, "CHF Patient appears volume overloaded at present clinically Will resume home diuresis". To accurately code this diagnosis and to compare patient severity, we ask that you specify the type of heart failure by placing an X within the parenthesis (x). SYSTOLIC HEART FAILURE ( ) Acute ( ) Chronic ( ) Acute on Chronic ( ) Rheumatic ( ) Unknown DIASTOLIC HEART FAILURE ( ) Acute ( ) Chronic (x) Acute on Chronic ( ) Rheumatic ( ) Unknown COMBINED SYSTOLIC AND DIASTOLIC HEART FAILURE ( ) Acute ( ) Chronic ( ) Acute on Chronic ( ) Rheumatic ( ) Unknown Was the CHF Present On Admission? Please check the appropriate box: (x) Present on Admission ( ) Not Present On Admission ( ) Clinically undetermined Thank you Adwoa ALVAREZ
== END 2020-03-02 18:11 | disposition home or self-care (01) | DRG 682 ==
LOC: ED 15:50 → 2N 18:41 → SUATTDRO 18:41 → 2N 19:25

== ENCOUNTER 2022-09-05 20:52 | Inpatient (IN) ==
[2022-09-05] MEDS ORDERED: ALBUTEROL 0.083% NEBU SOLN 3 ML VIAL ONE (21:01)
[2022-09-05] MEDS ORDERED: ALBUT/IPRATROP 3MG/0.5MG NEB 3 ML VIAL ONE (21:01)
[2022-09-05] MEDS ORDERED: methylPREDNISolone 125 MG/2 ML VIAL ONE (21:01)
[2022-09-05 22:12] LABS: Albumin Globulin Ratio 1.4 (0.9-2); Albumin Level 4.3 gm/dl (3.4-5.0); Bilirubin,Total 0.5 mg/dl (0.2-1.0); Calcium 9.2 mg/dl (8.6-10.3); Creatinine Clr Calc Pharmacy 10.4 ml/min; Est GFR (African American) 10.7 ml/min; Est GFR (Non-African American) 9.2 ml/min; Globulin 3.1 gm/dl (2.5-4.0); Magnesium 3.2 mg/dl (1.7-2.4); Potassium 4.1 mmol/L (3.5-5.1); Total Protein 7.4 gm/dl (6.0-8.3)
[2022-09-05 22:18] LABS: Troponin I High Sensitivity 38.8 pg/ml (0-14)
--- NOTE | 2022-09-05 22:27 | XRay Report ---
SINGLE VIEW CHEST CLINICAL HISTORY: Sepsis. FINDINGS: An AP, portable, upright chest radiograph is compared to study dated 03/01/2020 and correlate d with chest CT dated 02/04/2020. The examination is degraded by portable technique and apical lordot ic positioning. The heart is enlarged noting atherosclerotic calcification of the thoracic aorta. Th ere is pulmonary vascular congestion. Chronic interstitial thickening is similar to previous. An appr oximately 4 cm opacity is seen at the right lung base. There are small pleural effusions. No pneumoth orax is identified. The skeletal structures are osteopenic. There are chronic/healed left-sided rib f ractures. IMPRESSION: 1. Cardiomegaly with mild pulmonary vascular congestion. 2. Small pleural effusions. 3. There are bibasilar opacities, with an approximately 4 cm opacity at the right lung base. This may represent atelectasis and parenchymal calcifications when correlated with the prior CT scan. A 2-3 f ollow-up PA and lateral examination is recommended for reassessment. ACT 112: Negative or not required by law. Electronically signed by: Luis Arvizu M.D. 09/05/2022 10:25 PM
[2022-09-05 22:30] LABS: Basophils # (auto) 0.05 K/uL (0-0.2); Basophils % (auto) 0.3 %; Eosinophils # (auto) 0.57 K/uL (0-0.50); Eosinophils % (auto) 3.1 %; Hematocrit (blood only) 25.1 % (37.0-47.0); Hemoglobin 8.7 g/dl (12.0-16.0); Immature Granulocytes # (auto) 0.09 K/uL (0.01-0.20); Immature Granulocytes % (auto) 0.5 %; Lymphocytes # (auto) 2.15 K/uL (1.2-3.4); Lymphocytes % (auto) 11.8 %; Mean Corpuscular Hemoglobin 31.9 pg (25.0-34.0); Mean Corpuscular Hgb Conc 34.7 g/dL (32.0-36.0); Mean Corpuscular Volume 91.9 fL (80.0-100.0); Mean Platelet Volume 10.6 fL (9.4-12.4); Monocytes % (auto) 7.7 %; Neutrophils # (auto) 14.03 K/uL (1.40-6.50); Neutrophils % (auto) 76.6 %; Platelet Count 447 K/uL (130-400); RDW Coefficient of Variation 14.9 % (11.5-14.5); RDW Standard Deviation 50.1 fL (36.4-46.3); Red Blood Count 2.73 M/uL (4.20-5.40); White Blood Count 18.29 K/ul (4.8-10.8)
[2022-09-05 22:31] LABS: Partial Thromboplastin Time 28.1 Seconds (21.0-31.0); Prothrombin Time 10.6 Seconds (9.0-12.0)
[2022-09-05 23:15] LABS: Influenza A virus by PCR Negative (Neg); Influenza B virus by PCR Negative (Neg); RSV by PCR Negative (Neg); SARS CoV2 RNA(COVID-19) Ceph NEGATIVE (Negative)
[2022-09-05] MEDS ORDERED: BUMETANIDE 2 MG in SYRINGE 0 ML IV ONE (23:54)
[2022-09-05] MEDS ORDERED: CEFEPIME 2,000 MG/20 ML VIAL IV STA (23:55)
[2022-09-06 01:09] LABS: Adenovirus PCR Not Detected (NotDetected); Bordetella parapertussis PCR Not Detected (NotDetected); Bordetella pertussis PCR Not Detected (NotDetected); Chlamydia pneumoniae PCR Not Detected (NotDetected); Coronavirus 229E PCR Not Detected (NotDetected); Coronavirus CoV-2 (COVID19)PCR Not Detected (NotDetected); Coronavirus HKU1 PCR Not Detected (NotDetected); Coronavirus NL63 PCR Not Detected (NotDetected); Coronavirus OC43PCR Not Detected (NotDetected); Human Metapneumovirus PCR Not Detected (NotDetected); Influenza A PCR Not Detected (NotDetected); Influenza B PCR Not Detected (NotDetected); Mycoplasma pneumoniae PCR Not Detected (NotDetected); Parainfluenza Virus 1 PCR Not Detected (NotDetected); Parainfluenza Virus 2 PCR Not Detected (NotDetected); Parainfluenza Virus 3 PCR Not Detected (NotDetected); Parainfluenza Virus 4 PCR Not Detected (NotDetected); Respiratory Syncytial VirusPCR Not Detected (NotDetected)
[2022-09-06 01:10] LABS: Rhinovirus/Enterovirus PCR DETECTED (NotDetected)
[2022-09-06] MEDS ORDERED: hydrALAZINE HCL 25 MG TAB PO STA (01:19)
[2022-09-06] MEDS ORDERED: FAMOTIDINE 20 MG TAB PO ONE (01:19)
--- NOTE | 2022-09-06 01:23 | History & Physical Report ---
Date of Service September 06, 2022 Assessment & Plan (1) Acute respiratory failure with hypoxia: Plan: 77yo female presenting with progressive SOB, acute hypoxic respiratory failure on arrival requiring rescue BiPAP. Presently with adequate saturations, no tachypnea - BiPAP 10/5, 30% FiO2. Acute hypoxic respiratory failure likely secondary to acute decompensated CHF in setting of CKD as well as viral URI - respiratory Biofire panel + enterovirus. Patient has been given IV Bumex in the ER -Admit to PCU -Maintain BiPAP - wean as tolerated -Monitor response to IV Bumex -I/O, daily weights -Continue Bumex 2mg IV BID -BMP BID to monitor for electrolyte imbalance and renal function (2) Acute on chronic diastolic CHF (congestive heart failure): Plan: Pulmonary edema with acute hypoxic respiratory failure -Blood pressure control -Diuresis with IV Bumex -BiPAP as needed, wean as tolerated (3) CKD (chronic kidney disease): Plan: BUN and Cr near baseline. Patient follows with Dr. Kilpatrick, Nephrology. She reports decreased urine output despite increase in Bumex dosing. No acute need for dialysis. -Monitor renal function -Avoid nephrotoxic agents -Renal dosing where needed (4) Upper respiratory infection, viral: Plan: Likely contributing to patient's current state. No wheeze -Supportive care (5) Anemia of chronic disease: Plan: H/H stable at 8.7/25.1. Patient is on oral iron therapy at home. She has been offered IV Iron and has opted to remain on her oral therapy. No evidence of acute bleed. -Monitor CBC (6) HTN (hypertension): Plan: Poorly controlled blood pressure, possibly contributing to patient's SOB -Continue Hydralazine, Nifedipine -Monitor (7) Aortic stenosis: Plan: Moderate . Patient follows with Cardiology and has frequent echocardiograms to monitor for progression -Cautious diuresis (8) PAF (paroxysmal atrial fibrillation): Plan: Patient was previously on Eliquis anticoagulation. She follows with Cardiology - no longer on anticoagulation therapy -Continue to monitor F/E/N - Diuresis as above. Monitor renal function and electrolytes with BID BMPs, AHA diet as tolerated Ppx - low risk for DVT Code - DNR/DNI Dispo - Admit to PCU History of Present Illness Chief Complaint: shortness of breath Primary Care Provider: NO PCP Bety Chaidez is a 77yo female with history of CKD-V, anemia of chronic disease, HTN, PAF, moderate aortic stenosis presenting with shortness of breath. Patient had shortness of breath that developed earlier today 09/05/22 with progressive worsening throughout the day. She has had a cough productive for clear phlegm as well. She denies chest pain, palpitations, fever or chills. No abdominal pain. She reports one episode of vomiting prior to arrival. Also reports decreased urine output and increased bilateral LE edema. No sick contacts or recent travel. Patient follows with Nephrology for her CKD. She recently had her Bumex dose increased. She reports no improvement in UOP since this change. Patient hypoxic at 80% on room air by EMS. She was placed on supplemental O2 and was placed on BiPAP in the ER. Respiratory rate improving now with adequate oxygenation. Allergies Allergy/AdvReac Type Severity Reaction Status Date / Time hydrochlorothiazide AdvReac Severe hyponatremi Verified 09/05/22 21:58 a Home Medications Medication Instructions Recorded Confirmed Type ferrous sulfate 325 mg (65 mg 325 mg PO BID 02/02/20 09/05/22 History iron) tablet hydralazine 25 mg tablet 75 mg PO BID #60 tabs 02/17/20 09/05/22 Rx terazosin 1 mg capsule 2 mg PO HS #30 caps 02/17/20 09/05/22 Rx potassium chloride 20 mEq 10 meq PO DAILY 10/16/21 09/05/22 History tablet,extended release(part/cryst) (Klor-Con M) famotidine 40 mg tablet 40 mg PO BID 12/28/21 09/05/22 History benzonatate 100 mg capsule 100 mg PO BID PRN Cough 04/09/22 09/05/22 History guaifenesin 600 mg tablet, 600 mg PO Q12H PRN Congestion 04/09/22 09/05/22 History extended release 12 hr (Mucinex) bumetanide 2 mg tablet 2 mg PO .COMPLEX #270 tabs 08/22/22 09/05/22 Rx nifedipine 60 mg tablet,extended 60 mg PO TID 09/05/22 09/05/22 History release 24 hr Past Med/Surg History Medical History Anemia of chronic disease Aortic stenosis CKD (chronic kidney disease) Discharge planning issues DVT prophylaxis H/O TIA (transient ischemic attack) and stroke History of hypertensive crisis HTN (hypertension) admission for HTN urgency and for HTN emergency 01/2020 Hypertension PAF (paroxysmal atrial fibrillation) Pre-diabetes TIA (transient ischemic attack) Family History Denies family history of Kidney disease Social History Smoking Status: Never smoker Hx Alcohol Use: No Hx Substance Use: No Preferred Language: Chinese Communication Ability: Effective [employer] Panels Required: No Beliefs That Will Affect Care: None marital status: Current Living Situation: Family Other Information That Helps Us Care for You: No Feels Safe at Home: Yes Safety Concerns: Feels Safe At This Time Assistive Devices: None Review of Systems Review of Systems: All systems reviewed & are unremarkable except as noted in HPI & below Physical Exam Physical Exam: General: patient resting comfortably, NAD, non-toxic in appearance, AA&O x 4, BiPAP in place Skin: warm, dry, intact, no rashes or lesions HEENT: NC/AT, PERRL, EOMI, anicteric sclera, conjunctiva without injection, external ear normal to inspection and nontender, nares patent, moist mucus membranes, dentition intact, no oropharyngeal lesions, neck supple, trachea midline, no LAD, no thyromegaly, no JVD Heart: +S1/S2, regular, 3/6 crescendo-decrescendo ANAHY across precordium Lungs: equal air entry bilaterally, bilateral rales to mid lung-field, no wheezing Abd: +BS, soft, NT/ND, no masses/organomegaly/ascites Ext: warm, 2+ pulses in UE/LE bilaterally, no clubbing/cyanosis, trace pitting edema of bilateral LE Neuro: nonfocal, patient AA&O x 4, speech intact, no facial droop, moving all extremities on command with equal strength 5/5 Results & Data Results & Data Vital Signs (Past 12 Hours) Vital Signs Temp Pulse Pulse Resp BP BP Pulse Ox 09/06/22 01:05 83 22 185/78 H 99 09/06/22 00:23 85 09/06/22 00:19 85 25 H 184/96 H 98 09/06/22 00:04 90 28 H 99 09/05/22 23:12 83 24 187/87 H 97 09/05/22 22:46 87 20 191/84 H 96 09/05/22 21:49 87 20 95 09/05/22 21:24 82 23 189/77 H 95 09/05/22 21:01 95 09/05/22 21:01 37.2 C 82 24 189/77 H 95 09/05/22 21:01 09/05/22 21:13 87 O2 Del Method O2 Flow Rate FiO2 09/06/22 01:05 BiPAP 09/06/22 00:23 09/06/22 00:19 BiPAP 09/06/22 00:04 30 09/05/22 23:12 Nasal Cannula 6 09/05/22 22:46 Nasal Cannula 4 09/05/22 21:49 Nasal Cannula 4 09/05/22 21:24 Nasal Cannula 4 09/05/22 21:01 Nasal Cannula 4 09/05/22 21:01 Nasal Cannula 4 09/05/22 21:01 Nasal Cannula 4 09/05/22 21:13 Laboratory Results Laboratory Results WBC 18.29 K/ul (4.8-10.8) H 09/05/22 21:10 RBC 2.73 M/uL (4.20-5.40) L 09/05/22 21:10 Hgb 8.7 g/dl (12.0-16.0) L 09/05/22 21:10 Hct 25.1 % (37.0-47.0) L 09/05/22 21:10 MCV 91.9 fL (80.0-100.0) 09/05/22 21:10 MCH 31.9 pg (25.0-34.0) 09/05/22 21:10 MCHC 34.7 g/dL (32.0-36.0) 09/05/22 21:10 RDW Std Deviation 50.1 fL (36.4-46.3) H 09/05/22 21:10 RDW Coeff of Pam 14.9 % (11.5-14.5) H 09/05/22 21:10 Plt Count 447 K/uL (130-400) H 09/05/22 21:10 MPV 10.6 fL (9.4-12.4) 09/05/22 21:10 Immature Gran % (Auto) 0.5 % 09/05/22 21:10 Neut % (Auto) 76.6 % 09/05/22 21:10 Lymph % (Auto) 11.8 % 09/05/22 21:10 [place] % (Auto) 7.7 % 09/05/22 21:10 Eos % (Auto) 3.1 % 09/05/22 21:10 Baso % (Auto) 0.3 % 09/05/22 21:10 Neut # (Auto) 14.03 K/uL (1.40-6.50) H 09/05/22 21:10 Lymph # (Auto) 2.15 K/uL (1.2-3.4) 09/05/22 21:10 [place] # (Auto) 1.40 K/uL (0.11-0.59) H 09/05/22 21:10 Eos # (Auto) 0.57 K/uL (0-0.50) H 09/05/22 21:10 Baso # (Auto) 0.05 K/uL (0-0.2) 09/05/22 21:10 Immature Gran # (Auto) 0.09 K/uL (0.01-0.20) 09/05/22 21:10 PT 10.6 Seconds (9.0-12.0) 09/05/22 21:10 INR 1.0 (0.9-1.1) 09/05/22 21:10 APTT 28.1 Seconds (21.0-31.0) 09/05/22 21:10 PTT Ratio 1.0 09/05/22 21:10 Sodium 139 mmol/L (136-145) 09/05/22 21:10 Potassium 4.1 mmol/L (3.5-5.1) 09/05/22 21:10 Chloride 102 mmol/L (98-107) 09/05/22 21:10 Carbon Dioxide 21 mmol/L (21-32) 09/05/22 21:10 Anion Gap 16 (3-11) H 09/05/22 21:10 BUN 73 mg/dl (6-23) H 09/05/22 21:10 Creatinine 4.30 mg/dl (0.6-1.2) H 09/05/22 21:10 Est Cr Clr Drug Dosing 10.4 ml/min 09/05/22 21:10 Est GFR ( Amer) 10.7 ml/min 09/05/22 21:10 Est GFR (Non-Af Amer) 9.2 ml/min 09/05/22 21:10 BUN/Creatinine Ratio 17.0 (10-20) 09/05/22 21:10 Glucose 134 mg/dl (70-99(Fasting)) H 09/05/22 21:10 Lactate 1.0 mmol/L (0.4-2.0) 09/05/22 21:10 Calcium 9.2 mg/dl (8.6-10.3) 09/05/22 21:10 Magnesium 3.2 mg/dl (1.7-2.4) H 09/05/22 21:10 Total Bilirubin 0.5 mg/dl (0.2-1.0) 09/05/22 21:10 AST 17 U/L (13-39) 09/05/22 21:10 ALT 9 U/L (7-52) 09/05/22 21:10 Alkaline Phosphatase 64 U/L (34-104) 09/05/22 21:10 Troponin I High Sens 38.8 pg/ml (0-14) H 09/05/22 21:10 Total Protein 7.4 gm/dl (6.0-8.3) 09/05/22 21:10 Albumin 4.3 gm/dl (3.4-5.0) 09/05/22 21:10 Globulin 3.1 gm/dl (2.5-4.0) 09/05/22 21:10 Albumin/Globulin Ratio 1.4 (0.9-2) 09/05/22 21:10 Procalcitonin 0.06 ng/ml (0-0.5) 09/05/22 21:10 Adenovirus (PCR) Not Detected (NotDetected) 09/06/22 00:02 B. pertussis DNA (PCR) Not Detected (NotDetected) 09/06/22 00:02 B.parapertussis DNA PCR Not Detected (NotDetected) 09/06/22 00:02 C. pneumoniae DNA (PCR) Not Detected (NotDetected) 09/06/22 00:02 Coronavirus OC43 (PCR) Not Detected (NotDetected) 09/06/22 00:02 Coronavirus HKU1 (PCR) Not Detected (NotDetected) 09/06/22 00:02 Coronavirus 229E (PCR) Not Detected (NotDetected) 09/06/22 00:02 SARS-CoV-2 (PCR) Not Detected (NotDetected) 09/06/22 00:02 Coronavirus NL63 (PCR) Not Detected (NotDetected) 09/06/22 00:02 Human Metapneumovir PCR Not Detected (NotDetected) 09/06/22 00:02 Influenza Type A (PCR) Not Detected (NotDetected) 09/06/22 00:02 Influenza Type B (PCR) Not Detected (NotDetected) 09/06/22 00:02 M. pneumoniae (PCR) Not Detected (NotDetected) 09/06/22 00:02 Parainfluenza 1 (PCR) Not Detected (NotDetected) 09/06/22 00:02 Parainfluenza 2 (PCR) Not Detected (NotDetected) 09/06/22 00:02 Parainfluenza 3 (PCR) Not Detected (NotDetected) 09/06/22 00:02 Parainfluenza 4 (PCR) Not Detected (NotDetected) 09/06/22 00:02 RSV (RT-PCR) Negative (Neg) 09/05/22 22:01 RSV (PCR) Not Detected (NotDetected) 09/06/22 00:02 Entero/Rhino (PCR) DETECTED (NotDetected) A* 09/06/22 00:02 Impressions Chest X-Ray 09/05/22 21:22 SINGLE VIEW CHEST CLINICAL HISTORY: Sepsis. FINDINGS: An AP, portable, upright chest radiograph is compared to study dated 03/01/2020 and correlated with chest CT dated 02/04/2020. The examination is d egraded by portable technique and apical lordotic positioning. The heart is enlarged noting atherosclerotic calcification of the thoracic aorta. There is pulmonary vascular congestion. Chronic interstitial thickening is similar to previous. An approximately 4 cm opacity is seen at the right lung base. There are small pleural effusions. No pneumothorax is identified. The skeletal structures are osteopenic. There are chronic/healed left-sided rib fractures. IMPRESSION: 1. Cardiomegaly with mild pulmonary vascular congestion. 2. Small pleural effusions. 3. There are bibasilar opacities, with an approximately 4 cm opacity at the right lung base. This may represent atelectasis and parenchymal calcifications when correlated with the prior CT scan. A 2-3 follow-up PA and lateral examination is recommended for reassessment. ACT 112: Negative or not required by law. Electronically signed by: Luis Arvizu M.D. 09/05/2022 10:25 PM PG Care Time/CCT Total # of Minutes Spent Total Time Spent with Patient: Total time spent is greater than 50% in coordination of care (as documented) at patient's floor/unit and/or counseling patient: Coding Level of Care Code 53088 INT INP/OBS CARE 3/75MIN Diagnoses Acute respiratory failure with hypoxia J96.01 Acute on chronic diastolic CHF (congestive heart failure) I50.33 CKD (chronic kidney disease) N18.9 Upper respiratory infection, viral J06.9 Anemia of chronic disease D63.8 HTN (hypertension) I10 Hypertension type: essential hypertension Aortic stenosis I35.0 Cardiac valve disease etiology: etiology unspecified PAF (paroxysmal atrial fibrillation) I48.0 (6) HTN (hypertension) Hypertension type: essential hypertension Qualified Code(s): I10 - Essential (primary) hypertension (7) Aortic stenosis Cardiac valve disease etiology: etiology unspecified Qualified Code(s): I35.0 - Nonrheumatic aortic (valve) stenosis
--- NOTE | 2022-09-06 02:00 | Emergency Department Note ---
Impression & Plan Acute respiratory failure with hypoxia, Dyspnea, CKD (chronic kidney disease), Pulmonary edema, Pneumonia, Upper respiratory infection, viral, NEETA (acute kidney injury), Anemia ED Provider Note ED Provider Note NAME: RADHA FRIEDMAN AGE:77 SEX: Female : 1945 ARRIVES VIA: EMS INFORMANT: Patient ED PROVIDER(s): Radha Juarez DO CHIEF COMPLAINT: Shortness of breath HPI: This is a 77-year-old female who presents emergency department due to increased shortness of breath. Patient states her breathing has been worsening over the course of the last several days. She states she has had a cough that seems to be intermittently productive. She states her breathing is worse with any exertion. Patient states she does have lower extremity swelling however feels that is improved. She states she does take a diuretic daily and that dose has been increased by her kidney specialist. She states she follows with Dr. Idalia canales due to history of chronic kidney disease. Patient is not on dialysis. She denies fevers, chills, or other URI symptoms. Denies any sick contacts. She denies any other change in medications. Patient denies any history of heart problems. Patient was noted to be hypoxic by EMS on their initial evaluation. She was placed on supplemental oxygen. She does not typically wear oxygen at home. Patient's initial oxygen sats for EMS at home were in the low 80s. At the time of my evaluation patient was on 4 L via nasal cannula and maintaining oxygen saturations in the mid 90s. PAST MEDICAL HISTORY:See Below PAST SURGICAL HISTORY:See Below FAMILY HISTORY:See Below SOCIAL HISTORY:See Below HOME MEDICATIONS:See Below ALLERGIES:See Below VITALS:See Below PHYSICAL EXAMINATION: GENERAL: alert, unwell appearing, well nourished, no distress, non-toxic EYE EXAM: normal conjunctiva, PERRL and EOM's grossly intact OROPHARYNX: no exudate, no erythema, lips, buccal mucosa, and tongue normal and mucous membranes are moist NECK: supple, no nuchal rigidity, no adenopathy, non-tender LUNGS: Normal chest wall mechanics, no w wheezes, bilateral rales throughout, coarse cough noted HEART: no murmurs, S1 normal and S2 normal ABDOMEN: abdomen soft, non-tender, normo-active bowel sounds, no masses, no rebound or guarding. BACK: Back is symmetrical on inspection and there is no deformity, no midline tenderness, no CVA tenderness. SKIN: no rashes, petechiae, orbruising UPPER EXTREMITIES: upper extremities are grossly normal. FROM, nml pulses b/l. LOWER EXTREMITIES: No pitting edema. FROM, nml pulses b/l. NEURO EXAM: Normal sensorium, cranial nerves II-XII grossly intact, normal speech, no facial droop,nogross weakness of arms, no gross weakness of legs. Gross sensation intact. No ataxia. Vital Signs: reviewed and remarkable Differential Diagnosis: Pulmonary edema, CHF, pneumonia, pleural effusion, ACS, PE, viral syndrome, NEETA, as well as others were considered MEDICAL DECISION MAKING: This is a 77-year-old female who presents emergency department due to increased shortness of breath. Patient with history of chronic kidney disease, no history of pulmonary problems and does not wear oxygen at home. She was found to be hypoxic by EMS and continued to require oxygen by arrival here. Her vital signs are otherwise stable and she was afebrile. Labs are drawn and sent, IV es tablished, EKG and chest x-ray performed at bedside interpreted by me. I did contact respiratory therapy urgently following my bedside evaluation due to her increased work of breathing and audible rails. Patient was placed on BiPAP with improvement in her work of breathing. Patient with worsening kidney function upon review of labs. Chest x-ray appeared to have bilateral pulmonary edema. Due to accompanying leukocytosis, patient given IV antibiotics as a precaution. Lactic acid and procalcitonin negative. Patient was noted to be anemic however this appears stable compared to prior on review of EMR. Patient given additional dose of Bumex to help with diuresis. Case discussed with hospitalist for additional evaluation and management. Consultation(s): [] ER Treatment Provided: See below Diagnostics Interpreted By Me: -ECG: Normal sinus at 84, normal axis, normal intervals, nonspecific ST/T wave changes -Cardiac Monitoring: An order was placed for continuous cardiac monitoring. The monitor shows a rate of 80 with normal sinus rhythm. -Laboratory studies: As stated above and show below. -Imaging studies: X-ray Chest: A single view study of the chest was reviewed and was negative for cardiomegaly, or wide mediastinum. Appearance of bilateral pulmonary edema noted, no definite pleural effusions Triage Nursing Note Reviewed Prior/Outside Records Reviewed -outpatient nephrology note Procedures: Critical Care: Critical care of 39 min performed to assess and manage high likelihood of life- threatening acute hypoxic respiratory, involving labs and imaging performed with assessment to evaluate acute hypoxic respiratory failure diagnosis with frequent reassessment. This time includes bedside time, treatment discussions with patient/family/consultants, documentation time and excludes procedure time. Past Med/Surg History Medical History Anemia of chronic disease Aortic stenosis CKD (chronic kidney disease) Discharge planning issues DVT prophylaxis H/O TIA (transient ischemic attack) and stroke History of hypertensive crisis HTN (hypertension) admission for HTN urgency and for HTN emergency 01/2020 Hypertension PAF (paroxysmal atrial fibrillation) Pre-diabetes TIA (transient ischemic attack) Family History Denies family history of Kidney disease Social History Smoking Status: Never smoker Hx Alcohol Use: No Hx Substance Use: No Preferred Language: Guinean Communication Ability: Effective Detacker Required: No Beliefs That Will Affect Care: None marital status: Current Living Situation: Family Other Information That Helps Us Care for You: No Feels Safe at Home: Yes Safety Concerns: Feels Safe At This Time Assistive Devices: None Allergies Allergies Allergy/AdvReac Type Severity Reaction Status Date / Time hydrochlorothiazide AdvReac Severe hyponatremi Verified 09/05/22 21:58 a Home Meds Home Medications Medication Instructions Recorded Confirmed ferrous sulfate 325 mg (65 mg 325 mg PO BID 02/02/20 09/05/22 iron) tablet potassium chloride 20 mEq 10 meq PO DAILY 10/16/21 09/05/22 tablet,extended release(part/cryst) (Klor-Con M) famotidine 40 mg tablet 40 mg PO BID 12/28/21 09/05/22 benzonatate 100 mg capsule 100 mg PO BID PRN Cough 04/09/22 09/05/22 guaifenesin 600 mg tablet, 600 mg PO Q12H PRN Congestion 04/09/22 09/05/22 extended release 12 hr (Mucinex) nifedipine 60 mg tablet,extended 60 mg PO TID 09/05/22 09/05/22 release 24 hr Previous Rx's Medication Instructions Recorded hydralazine 25 mg tablet 75 mg PO BID #60 tabs 02/17/20 terazosin 1 mg capsule 2 mg PO HS #30 caps 02/17/20 bumetanide 2 mg tablet 2 mg PO .COMPLEX #270 tabs 08/22/22 Results & Data (ED) Vital Signs Vital Signs - 24 hr 09/05/22 21:13 09/05/22 21:01 09/05/22 21:01 Temperature 37.2 C Temperature Source Oral Pulse Rate 87 82 Pulse Rate [Apical] Respiratory Rate 24 Respiratory Effort / Characteristics Non-Labored Spontaneous Non-Labored Spontaneous Respiratory Depth Normal Normal Respiratory Pattern Regular Blood Pressure 189/77 H Blood Pressure [Right Arm] Blood Pressure Mean 114 Blood Pressure Mean [Right Arm] Blood Pressure Position Sitting Blood Pressure Position [Right Arm] Pulse Oximetry 95 Oxygen Delivery Method Nasal Cannula Nasal Cannula Oxygen Flow Rate 4 4 Fraction of Inspired Oxygen Sepsis Recent Fever Within 48 Hours No Sepsis New/Unexplained Change in Mental Status No Sepsis Action Taken by Nursing No Action Required 09/05/22 21:01 09/05/22 21:24 09/05/22 21:49 Temperature Temperature Source Pulse Rate 87 Pulse Rate [Apical] 82 Respiratory Rate 23 20 Respiratory Effort / Characteristics Non-Labored Spontaneous Respiratory Depth Normal Respiratory Pattern Blood Pressure Blood Pressure [Right Arm] 189/77 H Blood Pressure Mean Blood Pressure Mean [Right Arm] 114 Blood Pressure Position Blood Pressure Position [Right Arm] Sitting Pulse Oximetry 95 95 95 Oxygen Delivery Method Nasal Cannula Nasal Cannula Nasal Cannula Oxygen Flow Rate 4 4 4 Fraction of Inspired Oxygen Sepsis Recent Fever Within 48 Hours Sepsis New/Unexplained Change in Mental Status Sepsis Action Taken by Nursing 09/05/22 22:46 09/05/22 23:12 09/06/22 00:04 Temperature Temperature Source Pulse Rate 90 Pulse Rate [Apical] 87 83 Respiratory Rate 20 24 28 H Respiratory Effort / Characteristics Non-Labored Spontaneous Non-Labored Spontaneous Non-Labored Spontaneous Respiratory Depth Normal Normal Normal Respiratory Pattern Regular Blood Pressure Blood Pressure [Right Arm] 191/84 H 187/87 H Blood Pressure Mean Blood Pressure Mean [Right Arm] 119 120 Blood Pressure Position Blood Pressure Position [Right Arm] Sitting Pulse Oximetry 96 97 99 Oxygen Delivery Method Nasal Cannula Nasal Cannula Oxygen Flow Rate 4 6 Fraction of Inspired Oxygen 30 Sepsis Recent Fever Within 48 Hours Sepsis New/Unexplained Change in Mental Status Sepsis Action Taken by Nursing 09/06/22 00:19 09/06/22 00:23 09/06/22 01:05 Temperature Temperature Source Pulse Rate 85 Pulse Rate [Apical] 85 83 Respiratory Rate 25 H 22 Respiratory Effort / Characteristics Respiratory Depth Respiratory Pattern Blood Pressure Blood Pressure [Right Arm] 184/96 H 185/78 H Blood Pressure Mean Blood Pressure Mean [Right Arm] 125 113 Blood Pressure Position Blood Pressure Position [Right Arm] Pulse Oximetry 98 99 Oxygen Delivery Method BiPAP BiPAP Oxygen Flow Rate Fraction of Inspired Oxygen Sepsis Recent Fever Within 48 Hours Sepsis New/Unexplained Change in Mental Status Sepsis Action Taken by Nursing Laboratory Data 09/05/22 21:10 09/05/22 21:10 Lab Results 09/05/22 09/05/22 09/05/22 Range/Units 21:10 21:10 21:10 WBC 18.29 H (4.8-10.8) K/ul RBC 2.73 L (4.20-5.40) M/uL Hgb 8.7 L (12.0-16.0) g/dl Hct 25.1 L (37.0-47.0) % MCV 91.9 (80.0-100.0) fL MCH 31.9 (25.0-34.0) pg MCHC 34.7 (32.0-36.0) g/dL RDW Std Deviation 50.1 H (36.4-46.3) fL RDW Coeff of Pam 14.9 H (11.5-14.5) % Plt Count 447 H (130-400) K/uL MPV 10.6 (9.4-12.4) fL Immature Gran % (Auto) 0.5 % Neut % (Auto) 76.6 % Lymph % (Auto) 11.8 % Atlantic % (Auto) 7.7 % Eos % (Auto) 3.1 % Baso % (Auto) 0.3 % Neut # (Auto) 14.03 H (1.40-6.50) K/uL Lymph # (Auto) 2.15 (1.2-3.4) K/uL Atlantic # (Auto) 1.40 H (0.11-0.59) K/uL Eos # (Auto) 0.57 H (0-0.50) K/uL Baso # (Auto) 0.05 (0-0.2) K/uL Immature Gran # (Auto) 0.09 (0.01-0.20) K/uL PT 10.6 (9.0-12.0) Seconds INR 1.0 (0.9-1.1) APTT 28.1 (21.0-31.0) Seconds PTT Ratio 1.0 Sodium (136-145) mmol/L Potassium (3.5-5.1) mmol/L Chloride (98-107) mmol/L Carbon Dioxide (21-32) mmol/L Anion Gap (3-11) BUN (6-23) mg/dl Creatinine (0.6-1.2) mg/dl Est Cr Clr Drug Dosing ml/min Est GFR ( Amer) ml/min Est GFR (Non-Af Amer) ml/min BUN/Creatinine Ratio (10-20) Glucose (70-99(Fasting)) mg/dl Lactate 1.0 (0.4-2.0) mmol/L Calcium (8.6-10.3) mg/dl Magnesium (1.7-2.4) mg/dl Total Bilirubin (0.2-1.0) mg/dl AST (13-39) U/L ALT (7-52) U/L Alkaline Phosphatase (34-104) U/L Troponin I High Sens (0-14) pg/ml Total Protein (6.0-8.3) gm/dl Albumin (3.4-5.0) gm/dl Globulin (2.5-4.0) gm/dl Albumin/Globulin Ratio (0.9-2) Procalcitonin (0-0.5) ng/ml Adenovirus (PCR) (NotDetected) B. pertussis DNA (PCR) (NotDetected) B.parapertussis DNA PCR (NotDetected) C. pneumoniae DNA (PCR) (NotDetected) Coronavirus OC43 (PCR) (NotDetected) Coronavirus HKU1 (PCR) (NotDetected) Coronavirus 229E (PCR) (NotDetected) SARS-CoV-2 (PCR) (Negative) Coronavirus NL63 (PCR) (NotDetected) Human Metapneumovir PCR (NotDetected) Influenza Type A (PCR) (Neg) Influenza Type B (PCR) (Neg) M. pneumoniae (PCR) (NotDetected) Parainfluenza 1 (PCR) (NotDetected) Parainfluenza 2 (PCR) (NotDetected) Parainfluenza 3 (PCR) (NotDetected) Parainfluenza 4 (PCR) (NotDetected) RSV (RT-PCR) (Neg) RSV (PCR) (NotDetected) Entero/Rhino (PCR) (NotDetected) 09/05/22 09/05/22 09/05/22 Range/Units 21:10 21:10 22:01 WBC (4.8-10.8) K/ul RBC (4.20-5.40) M/uL Hgb (12.0-16.0) g/dl Hct (37.0-47.0) % MCV (80.0-100.0) fL MCH (25.0-34.0) pg MCHC (32.0-36.0) g/dL RDW Std Deviation (36.4-46.3) fL RDW Coeff of Pam (11.5-14.5) % Plt Count (130-400) K/uL MPV (9.4-12.4) fL Immature Gran % (Auto) % Neut % (Auto) % Lymph % (Auto) % Atlantic % (Auto) % Eos % (Auto) % Baso % (Auto) % Neut # (Auto) (1.40-6.50) K/uL Lymph # (Auto) (1.2-3.4) K/uL Atlantic # (Auto) (0.11-0.59) K/uL Eos # (Auto) (0-0.50) K/uL Baso # (Auto) (0-0.2) K/uL Immature Gran # (Auto) (0.01-0.20) K/uL PT (9.0-12.0) Seconds INR (0.9-1.1) APTT (21.0-31.0) Seconds PTT Ratio Sodium 139 (136-145) mmol/L Potassium 4.1 (3.5-5.1) mmol/L Chloride 102 (98-107) mmol/L Carbon Dioxide 21 (21-32) mmol/L Anion Gap 16 H (3-11) BUN 73 H (6-23) mg/dl Creatinine 4.30 H (0.6-1.2) mg/dl Est Cr Clr Drug Dosing 10.4 ml/min Est GFR ( Amer) 10.7 ml/min Est GFR (Non-Af Amer) 9.2 ml/min BUN/Creatinine Ratio 17.0 (10-20) Glucose 134 H (70-99(Fasting)) mg/dl Lactate (0.4-2.0) mmol/L Calcium 9.2 (8.6-10.3) mg/dl Magnesium 3.2 H (1.7-2.4) mg/dl Total Bilirubin 0.5 (0.2-1.0) mg/dl AST 17 (13-39) U/L ALT 9 (7-52) U/L Alkaline Phosphatase 64 (34-104) U/L Troponin I High Sens 38.8 H (0-14) pg/ml Total Protein 7.4 (6.0-8.3) gm/dl Albumin 4.3 (3.4-5.0) gm/dl Globulin 3.1 (2.5-4.0) gm/dl Albumin/Globulin Ratio 1.4 (0.9-2) Procalcitonin 0.06 (0-0.5) ng/ml Adenovirus (PCR) (NotDetected) B. pertussis DNA (PCR) (NotDetected) B.parapertussis DNA PCR (NotDetected) C. pneumoniae DNA (PCR) (NotDetected) Coronavirus OC43 (PCR) (NotDetected) Coronavirus HKU1 (PCR) (NotDetected) Coronavirus 229E (PCR) (NotDetected) SARS-CoV-2 (PCR) NEGATIVE (Negative) Coronavirus NL63 (PCR) (NotDetected) Human Metapneumovir PCR (NotDetected) Influenza Type A (PCR) Negative (Neg) Influenza Type B (PCR) Negative (Neg) M. pneumoniae (PCR) (NotDetected) Parainfluenza 1 (PCR) (NotDetected) Parainfluenza 2 (PCR) (NotDetected) Parainfluenza 3 (PCR) (NotDetected) Parainfluenza 4 (PCR) (NotDetected) RSV (RT-PCR) Negative (Neg) RSV (PCR) (NotDetected) Entero/Rhino (PCR) (NotDetected) 09/06/22 Range/Units 00:02 WBC (4.8-10.8) K/ul RBC (4.20-5.40) M/uL Hgb (12.0-16.0) g/dl Hct (37.0-47.0) % MCV (80.0-100.0) fL MCH (25.0-34.0) pg MCHC (32.0-36.0) g/dL RDW Std Deviation (36.4-46.3) fL RDW Coeff of Pam (11.5-14.5) % Plt Count (130-400) K/uL MPV (9.4-12.4) fL Immature Gran % (Auto) % Neut % (Auto) % Lymph % (Auto) % Atlantic % (Auto) % Eos % (Auto) % Baso % (Auto) % Neut # (Auto) (1.40-6.50) K/uL Lymph # (Auto) (1.2-3.4) K/uL Atlantic # (Auto) (0.11-0.59) K/uL Eos # (Auto) (0-0.50) K/uL Baso # (Auto) (0-0.2) K/uL Immature Gran # (Auto) (0.01-0.20) K/uL PT (9.0-12.0) Seconds INR (0.9-1.1) APTT (21.0-31.0) Seconds PTT Ratio Sodium (136-145) mmol/L Potassium (3.5-5.1) mmol/L Chloride (98-107) mmol/L Carbon Dioxide (21-32) mmol/L Anion Gap (3-11) BUN (6-23) mg/dl Creatinine (0.6-1.2) mg/dl Est Cr Clr Drug Dosing ml/min Est GFR ( Amer) ml/min Est GFR (Non-Af Amer) ml/min BUN/Creatinine Ratio (10-20) Glucose (70-99(Fasting)) mg/dl Lactate (0.4-2.0) mmol/L Calcium (8.6-10.3) mg/dl Magnesium (1.7-2.4) mg/dl Total Bilirubin (0.2-1.0) mg/dl AST (13-39) U/L ALT (7-52) U/L Alkaline Phosphatase (34-104) U/L Troponin I High Sens (0-14) pg/ml Total Protein (6.0-8.3) gm/dl Albumin (3.4-5.0) gm/dl Globulin (2.5-4.0) gm/dl Albumin/Globulin Ratio (0.9-2) Procalcitonin (0-0.5) ng/ml Adenovirus (PCR) Not Detected (NotDetected) B. pertussis DNA (PCR) Not Detected (NotDetected) B.parapertussis DNA PCR Not Detected (NotDetected) C. pneumoniae DNA (PCR) Not Detected (NotDetected) Coronavirus OC43 (PCR) Not Detected (NotDetected) Coronavirus HKU1 (PCR) Not Detected (NotDetected) Coronavirus 229E (PCR) Not Detected (NotDetected) SARS-CoV-2 (PCR) Not Detected (Negative) Coronavirus NL63 (PCR) Not Detected (NotDetected) Human Metapneumovir PCR Not Detected (NotDetected) Influenza Type A (PCR) Not Detected (Neg) Influenza Type B (PCR) Not Detected (Neg) M. pneumoniae (PCR) Not Detected (NotDetected) Parainfluenza 1 (PCR) Not Detected (NotDetected) Parainfluenza 2 (PCR) Not Detected (NotDetected) Parainfluenza 3 (PCR) Not Detected (NotDetected) Parainfluenza 4 (PCR) Not Detected (NotDetected) RSV (RT-PCR) (Neg) RSV (PCR) Not Detected (NotDetected) Entero/Rhino (PCR) DETECTED A* (NotDetected) Administered Medications Benzonatate (Benzonatate 100 Mg Capsule) 100 mg PO BID PRN PRN Reason: Cough Stop: 10/06/22 02:26 Last Admin: 09/06/22 18:27 Dose: 100 mg Documented By: Admin: 09/06/22 02:49 Dose: 100 mg Documented By: AMM Famotidine (Famotidine 20 Mg Tab) 20 mg PO HS [place] Stop: 10/06/22 20:59 Last Admin: 09/06/22 20:03 Dose: 20 mg Documented By: TRISTAN Guaifenesin (Guaifenesin 600 Mg Tabcr) 600 mg PO Q12H PRN PRN Reason: Congestion Stop: 10/06/22 02:26 Last Admin: 09/06/22 08:49 Dose: 600 mg Documented By: VERONICA Hydralazine HCl (Hydralazine Hcl 25 Mg Tab) 75 mg PO TID [place] Stop: 10/06/22 08:59 Last Admin: 09/06/22 20:03 Dose: 75 mg Documented By: Admin: 09/06/22 13:16 Dose: 75 mg Documented By: Admin: 09/06/22 09:11 Dose: 75 mg Documented By: VERONICA Bumetanide 2 mg/ Syringe 8 mls @ 4 mls/min IV BID@0900,1700 [place] Stop: 10/06/22 08:59 Last Admin: 09/06/22 16:28 Dose: 4 mls/min Documented By: Admin: 09/06/22 09:11 Dose: 4 mls/min Documented By: VERONICA Nifedipine (Nifedipine Extended Rel 30 Mg Tabcr) 60 mg PO TID [facility] Stop: 10/06/22 08:59 Last Admin: 09/06/22 20:04 Dose: 60 mg Documented By: Admin: 09/06/22 13:16 Dose: 60 mg Documented By: Admin: 09/06/22 08:49 Dose: 60 mg Documented By: VERONICA Potassium Chloride (Potassium Chloride 10 Meq Tabcr) 10 meq PO DAILY [place] Stop: 10/06/22 08:59 Last Admin: 09/06/22 08:50 Dose: 10 meq Documented By: VERONICA Terazosin HCl (Terazosin Hcl 1 Mg Cap) 2 mg PO HS [place] Stop: 10/06/22 20:59 Last Admin: 09/06/22 20:03 Dose: 2 mg Documented By: TRISTAN Discontinued Medications Albuterol (Albut/Ipratrop 3mg/0.5mg Neb 3 Ml Vial) 3 ml NEB NOW STA; Protocol Stop: 09/06/22 19:12 Last Admin: 09/06/22 19:31 Dose: 3 ml Documented By: MA Famotidine (Famotidine 20 Mg Tab) 40 mg PO NOW ONE Stop: 09/06/22 01:20 Last Admin: 09/06/22 01:57 Dose: 40 mg Documented By: FLACO Hydralazine HCl (Hydralazine Hcl 25 Mg Tab) 75 mg PO NOW STA Stop: 09/06/22 01:20 Last Admin: 09/06/22 01:57 Dose: 75 mg Documented By: FLACO Bumetanide 2 mg/ Syringe 8 mls @ 4 mls/min IV ONE ONE Stop: 09/05/22 23:55 Last Admin: 09/06/22 01:07 Dose: 4 mls/min Documented By: FLACO Cefepime HCl (Maxipime) 2,000 mg in 20 mls @ 5 mls/min IV NOW STA; Protocol Stop: 09/05/22 23:58 Last Admin: 09/06/22 01:07 Dose: 5 mls/min Documented By: FLACO Metolazone (Metolazone 5 Mg Tablet) 5 mg PO NOW ONE Stop: 09/06/22 08:49 Last Admin: 09/06/22 09:11 Dose: 5 mg Documented By: VERONICA Morphine Sulfate (Morphine Sulfate 2 Mg/Ml Carp) 1 mg IV NOW STA Stop: 09/06/22 19:12 Last Admin: 09/06/22 20:03 Dose: 1 mg Documented By: TRISTAN Nifedipine (Nifedipine Extended Rel 30 Mg Tabcr) 60 mg PO NOW STA Stop: 09/06/22 03:20 Last Admin: 09/06/22 03:31 Dose: 60 mg Documented By: SAHRA Imaging Data Radiologist's Impression: Chest X-Ray 09/05/22 21:22 SINGLE VIEW CHEST CLINICAL HISTORY: Sepsis. FINDINGS: An AP, portable, upright chest radiograph is compared to study dated 03/01/2020 and correlated with chest CT dated 02/04/2020. The examination is degraded by portable technique and apical lordotic positioning. The heart is enlarged noting atherosclerotic calcification of the thoracic aorta. There is pulmonary vascular congestion. Chronic interstitial thickening is similar to previous. An approximately 4 cm opacity is seen at the right lung base. There are small pleural effusions. No pneumothorax is identified. The skeletal structures are osteopenic. There are chronic/healed left-sided rib fractures. IMPRESSION: 1. Cardiomegaly with mild pulmonary vascular congestion. 2. Small pleural effusions. 3. There are bibasilar opacities, with an approximately 4 cm opacity at the right lung base. This may represent atelectasis and parenchymal calcifications when correlated with the prior CT scan. A 2-3 follow-up PA and lateral examination is recommended for reassessment. ACT 112: Negative or not required by law. Electronically signed by: Luis Arvizu M.D. 09/05/2022 10:25 PM Discharge Plan Visit Data Chief Complaint: Shortness of Breath/Dyspnea ED Provider: Radha Juarez Discharge Problem: Acute respiratory failure with hypoxia, Dyspnea, CKD (chronic kidney disease), Pulmonary edema, Pneumonia, Upper respiratory infection, viral, NEETA (acute kidney injury), Anemia Patient Disposition: Admitted As Inpatient Discharge Instructions Interventions: ED Discharge Assessment Last Done: 09/06/22 01:57
[2022-09-06] MEDS ORDERED: ACETAMINOPHEN 325 MG TAB PO PRN (02:27)
[2022-09-06] MEDS ORDERED: ONDANSETRON INJ 2 MG/ML 2 ML VIAL IV PRN (02:27)
[2022-09-06] MEDS: BENZONATATE 100 MG CAPSULE PO PRN ×2 (02:49→18:27)
[2022-09-06] MEDS ORDERED: NIFEdipine EXTENDED REL 30 MG TABCR PO STA (03:19)
[2022-09-06 06:19] LABS: Hematocrit (blood only) 21.8 % (37.0-47.0); Hemoglobin 7.3 g/dl (12.0-16.0); Mean Corpuscular Hemoglobin 31.2 pg (25.0-34.0); Mean Corpuscular Hgb Conc 33.5 g/dL (32.0-36.0); Mean Corpuscular Volume 93.2 fL (80.0-100.0); Mean Platelet Volume 10.4 fL (9.4-12.4); Platelet Count 335 K/uL (130-400); RDW Coefficient of Variation 14.6 % (11.5-14.5); RDW Standard Deviation 49.6 fL (36.4-46.3); Red Blood Count 2.34 M/uL (4.20-5.40); White Blood Count 21.04 K/ul (4.8-10.8)
[2022-09-06 06:28] LABS: BUN Creatinine Ratio 17.6 (10-20); Calcium 8.8 mg/dl (8.6-10.3); Creatinine Clr Calc Pharmacy 10.1 ml/min; Est GFR (African American) 10.8 ml/min; Est GFR (Non-African American) 9.3 ml/min; Potassium 3.8 mmol/L (3.5-5.1)
[2022-09-06] MEDS ORDERED: metOLazone 5 MG TABLET PO ONE (08:48)
[2022-09-06] MEDS: guaiFENesin 600 MG TABCR PO PRN (08:49)
[2022-09-06] MEDS: NIFEdipine EXTENDED REL 30 MG TABCR PO SCH ×3 (08:49→20:04)
[2022-09-06] MEDS: POTASSIUM CHLORIDE 10 MEQ TABCR PO SCH (08:50)
[2022-09-06] MEDS ORDERED: hydrALAZINE HCL 25 MG TAB PO SCH (09:00)
[2022-09-06] MEDS: hydrALAZINE HCL 25 MG TAB PO SCH ×3 (09:11→20:03)
[2022-09-06] MEDS: BUMETANIDE 2 MG in SYRINGE 0 ML IV SCH ×2 (09:11→16:28)
[2022-09-06 11:58] LABS: Appearance Urine Clear (Clear); Bacteria Urine Automated Negative (Negative); Bilirubin Urine Negative (Negative); Blood Urine Negative (Negative); Cast Urine Automated 0 /lpf (0-5); Color Urine Yellow; Glucose Urine UA 1+ (Negative); Ketones Urine Negative (Negative); Leukocyte Esterase Urine Negative (Negative); Nitrite Urine Negative (Negative); Protein Urine 3+ (Negative); RBC Urine Automated 0-4 /hpf (0-4); Specific Gravity Urine 1.012 (1.000-1.030); Urobilinogen Urine Negative (Negative); pH Urine 6.5 (4.5-7.5)
--- NOTE | 2022-09-06 14:36 | Hospitalist Progress Note ---
Date of Service September 06, 2022 Assessment & Plan (1) Acute respiratory failure with hypoxia: Plan: Due to combined effects of congestive heart failure and viral illness. Supplemental oxygen per nasal cannula to maintain saturation greater than 90%. Wean off as tolerated. (2) Acute on chronic diastolic CHF (congestive heart failure): Plan: Continue Bumex parenteral diuresis. Monitor intake and output. Serial chest x- rays. Limited cardiac echo pending (3) CKD (chronic kidney disease): Plan: Stage V. Monitor intake and output. Serial labs (4) Upper respiratory infection, viral: Plan: Acute viral illness. Supportive care. (5) Anemia of chronic disease: Plan: Undoubtedly related to chronic kidney disease. No evidence of GI bleeding. Serial labs . Continue oral iron replacement therapy (6) HTN (hypertension): Plan: Hydralazine uptitrated to 3 times a day dosing. Continue nifedipine (7) Aortic stenosis: Plan: Moderate . Patient follows with Cardiology and has frequent echocardiograms to monitor for progression. Limited cardiac echo pending. The aortic stenosis is moderate and hydralazine therapy should not affect the aortic valve pressure gradient (8) PAF (paroxysmal atrial fibrillation): Plan: Patient was previously on Eliquis anticoagulation but no longer. Continue current medication management Plan Hopeful discharge to home within the next day or 2 Admission and Anticipated Discharge Date Admission Date: September 06, 2022 Subjective Alert and oriented. No acute distress. She is receiving parenteral Bumex and diuresing nicely. Limited cardiac echo is pending. Hydralazine uptitrated to 3 times daily dosing for better blood pressure control. I suspect this is diastol ic congestive heart failure based on normal left ventricular ejection fraction on her previous echo done in September 2021. I suspect her chronic anemia is due to her chronic kidney disease. Review of Systems Review of Systems: Constitutional-no fever or chills. [place] ENT-no blurred vision, no double vision, no epistaxis, no sore throat Respiratory-nonproductive cough. No wheezing. Some noticeable shortness of breath with exertion Cardiac-no palpitations, no chest pain, no syncope GI-no nausea, vomiting, diarrhea, melena, hematochezia -no urinary retention, no urinary incontinence, no dysuria, no hematuria Musculoskeletal-no joint pain, no muscle tenderness Skin-no bruising, no rashes, no pruritus Neuro-no isolated weakness, no paresthesia, no weakness Psych-flat affect Physical Exam Physical Exam: General-alert and oriented x3, no fevers, no chills HEENT-head atraumatic and normocephalic, pupils equal and reactive to light, extraocular muscles intact Neck-no lymphadenopathy or thyromegaly, trachea midline Chest-bibasilar inspiratory rales. Scattered rhonchi. No wheezing Cardiac-irregular rhythm, controlled rate, normal S1 and S2 Abdomen-normal bowel sounds, nontender, no hepatosplenomegaly Extremities-no cyanosis, clubbing, or edema Neuro-cranial nerves II through XII intact, motor and sensory function within normal limits, strength symmetrical , no focal deficits Psych-flat affect Results & Data Results & Data Vital Signs (Past 12 Hours) Vital Signs Temp Pulse Pulse Resp BP Pulse Ox O2 Del Method 09/06/22 11:15 36.9 C 83 20 168/79 H 100 Room Air 09/06/22 10:00 71 09/06/22 10:00 Nasal Cannula 09/06/22 08:00 36.8 C 87 16 174/88 H 97 Nasal Cannula 09/06/22 03:00 36.9 C 85 18 186/63 H 97 Room Air 09/06/22 02:40 80 09/06/22 02:31 36.9 C 85 18 186/63 H 97 Nasal Cannula O2 Flow Rate 09/06/22 11:15 09/06/22 10:00 09/06/22 10:00 3 09/06/22 08:00 2 09/06/22 03:00 09/06/22 02:40 09/06/22 02:31 5 Laboratory Results 09/06/22 05:37 09/06/22 05:37 PG Care Time/CCT Total # of Minutes Spent Total Time Spent with Patient: Total time spent is greater than 50% in coordination of care (as documented) at patient's floor/unit and/or counseling patient: Coding Level of Care Code 54945 SUB INP/OBS CARE 3/50MIN Diagnoses Acute respiratory failure with hypoxia J96.01 Acute on chronic diastolic CHF (congestive heart failure) I50.33 CKD (chronic kidney disease) N18.9 Upper respiratory infection, viral J06.9 Anemia of chronic disease D63.8 HTN (hypertension) I10 Hypertension type: essential hypertension Aortic stenosis I35.0 Cardiac valve disease etiology: etiology unspecified PAF (paroxysmal atrial fibrillation) I48.0 (6) HTN (hypertension) Hypertension type: essential hypertension Qualified Code(s): I10 - Essential (primary) hypertension (7) Aortic stenosis Cardiac valve disease etiology: etiology unspecified Qualified Code(s): I35.0 - Nonrheumatic aortic (valve) stenosis
--- NOTE | 2022-09-06 16:20 | Electrocardiogram Report ---
Test Reason : Blood Pressure : / mmHG Vent. Rate : 084 BPM Atrial Rate : 084 BPM P-R Int : 194 ms QRS Dur : 112 ms QT Int : 388 ms P-R-T Axes : 093 -19 116 degrees QTc Int : 458 ms Normal sinus rhythm with sinus arrhythmia Minimal voltage criteria for LVH, may be normal variant Anterolateral infarct (cited on or before 10-FEB-2020) Abnormal ECG When compared with ECG of 01-MAR-2020 16:29, Vent. rate has increased BY [address] now depressed in Lateral leads Confirmed by Mian Condon ([id number]) on 09/06/2022 4:20:18 PM Referred By: REFERRED SELF Confirmed By:Shay Condon
--- NOTE | 2022-09-06 17:13 | XCELERA ---
[id number]
[2022-09-06] MEDS ORDERED: ALBUT/IPRATROP 3MG/0.5MG NEB 3 ML VIAL NEB STA (19:11)
[2022-09-06] MEDS ORDERED: MoRPHine SULFATE 2 MG/ML CARP IV STA (19:11)
[2022-09-06] MEDS: FAMOTIDINE 20 MG TAB PO SCH (20:03)
[2022-09-06] MEDS: TERAZOSIN HCL 1 MG CAP PO SCH (20:03)
[2022-09-07 07:21] LABS: Hematocrit (blood only) 18.9 % (37.0-47.0); Hemoglobin 6.4 g/dl (12.0-16.0); Mean Corpuscular Hemoglobin 31.7 pg (25.0-34.0); Mean Corpuscular Hgb Conc 33.9 g/dL (32.0-36.0); Mean Corpuscular Volume 93.6 fL (80.0-100.0); Mean Platelet Volume 10.4 fL (9.4-12.4); Platelet Count 276 K/uL (130-400); RDW Coefficient of Variation 14.5 % (11.5-14.5); RDW Standard Deviation 49.6 fL (36.4-46.3); Red Blood Count 2.02 M/uL (4.20-5.40); White Blood Count 16.45 K/ul (4.8-10.8)
[2022-09-07] MEDS ORDERED: SODIUM CHLORIDE 0.9% 250 ML IV PRN (07:26)
[2022-09-07 09:01] LABS: Partial Thromboplastin Ratio 1.2; Partial Thromboplastin Time 33.9 Seconds (21.0-31.0); Prothrombin Time 11.3 Seconds (9.0-12.0)
[2022-09-07] MEDS: BUMETANIDE 2 MG in SYRINGE 0 ML IV SCH ×2 (09:31→16:26)
[2022-09-07] MEDS: hydrALAZINE HCL 25 MG TAB PO SCH ×3 (09:32→19:46)
[2022-09-07] MEDS: NIFEdipine EXTENDED REL 30 MG TABCR PO SCH ×3 (09:32→19:46)
[2022-09-07] MEDS: POTASSIUM CHLORIDE 10 MEQ TABCR PO SCH (09:33)
[2022-09-07] MEDS: guaiFENesin 600 MG TABCR PO PRN ×2 (09:33→19:45)
[2022-09-07 10:12] LABS: Calcium 8.3 mg/dl (8.6-10.3); Est GFR (African American) 9.5 ml/min; Est GFR (Non-African American) 8.2 ml/min; Potassium 4.2 mmol/L (3.5-5.1)
--- NOTE | 2022-09-07 11:00 | XRay Report ---
XR chest 1V portable CLINICAL HISTORY: CHF, hypoxia TECHNIQUE: Single frontal radiograph of the chest was obtained. Comparison: Comparison is made to chest radiograph 09/05/2022 FINDINGS: No lines and tubes are seen. Cardiomegaly is noted. The aortic arch is calcified. Airspace opacity in the right lung has significantly increased from prior exam. Small right greater than left pleural ef fusions are seen. Prominence of the pulmonary vasculature is noted. IMPRESSION: 1. Cardiomegaly and mild pulmonary edema. 2. Right lower lung airspace opacity may represent atelectasis, pneumonia, and/or aspiration. 3. Small right greater than left pleural effusion, increased from prior exam. ACT 112: Negative or not required by law. Electronically signed by: Barrington Wells M.D. 09/07/2022 10:58 AM
[2022-09-07] MEDS ORDERED: metOLazone 5 MG TABLET PO ONE (11:29)
--- NOTE | 2022-09-07 13:54 | Hospitalist Progress Note ---
Date of Service September 07, 2022 Assessment & Plan (1) Acute respiratory failure with hypoxia: Plan: Due to combined effects of congestive heart failure and viral illness. Supplemental oxygen per nasal cannula to maintain saturation greater than 90%. Wean off as tolerated. (2) Acute on chronic diastolic CHF (congestive heart failure): Plan: Continue Bumex parenteral diuresis. Monitor intake and output. Serial chest x- rays. Limited cardiac echo report noted. No new findings. Will administer 1 dose of metolazone orally today, September 07 (3) CKD (chronic kidney disease): Plan: Stage V. Monitor intake and output. Serial labs (4) Upper respiratory infection, viral: Plan: Acute viral illness. Supportive care. (5) Anemia of chronic disease: Plan: Undoubtedly related to chronic kidney disease. No evidence of GI bleeding. Stool Hemoccult negative. Hemoglobin is down to 6.4 today and she has agreed to 2 units of blood transfusion. Serial labs . Continue oral iron replacement therapy (6) HTN (hypertension): Plan: Hydralazine has been uptitrated to 3 times a day dosing. Continue nifedipine (7) Aortic stenosis: Plan: Moderate . Patient follows with Cardiology and has frequent echocardiograms to monitor for progression. Limited cardiac echo pending. The aortic stenosis is moderate and hydralazine therapy should not affect the aortic valve pressure gradient (8) PAF (paroxysmal atrial fibrillation): Plan: Patient was previously on Eliquis anticoagulation but no longer. Continue current medication management Plan Hopeful discharge to home within the next several days Admission and Anticipated Discharge Date Admission Date: September 06, 2022 Subjective Hemoglobin has dropped to 6.4 associated with her chronic kidney disease. Stool Hemoccult is negative. She has agreed to blood transfusion. Continue Bumex IV diuresis and add 1 dose of metolazone today. Chest x-ray continues to show fluid overload. Review of Systems Review of Systems: Constitutional-no fever or chills. [place] ENT-no blurred vision, no double vision, no epistaxis, no sore throat Respiratory-nonproductive cough. No wheezing. Some noticeable shortness of breath with exertion Cardiac-no palpitations, no chest pain, no syncope GI-no nausea, vomiting, diarrhea, melena, hematochezia -no urinary retention, no urinary incontinence, no dysuria, no hematuria Musculoskeletal-no joint pain, no muscle tenderness Skin-no bruising, no rashes, no pruritus Neuro-no isolated weakness, no paresthesia, no weakness Psych-flat affect Physical Exam Physical Exam: General-alert and oriented x3, no fevers, no chills HEENT-head atraumatic and normocephalic, pupils equal and reactive to light, extraocular muscles intact Neck-no lymphadenopathy or thyromegaly, trachea midline Chest-bibasilar inspiratory rales. Scattered rhonchi. No wheezing Cardiac-irregular rhythm, controlled rate, normal S1 and S2 Abdomen-normal bowel sounds, nontender, no hepatosplenomegaly Extremities-no cyanosis, clubbing, or edema Neuro-cranial nerves II through XII intact, motor and sensory function within normal limits, strength symmetrical , no focal deficits Psych-flat affect Results & Data Results & Data Vital Signs (Past 12 Hours) Vital Signs Temp Pulse Pulse Resp BP BP Pulse Ox 09/07/22 13:47 36.7 C 68 27 H 172/67 H 95 09/07/22 13:02 36.6 C 67 26 H 166/69 H 95 09/07/22 12:02 36.6 C 67 28 H 170/66 H 96 09/07/22 11:32 36.6 C 69 27 H 157/70 H 95 09/07/22 11:17 36.6 C 69 28 H 147/66 H 96 09/07/22 11:16 36.7 C 70 28 H 151/67 H 97 09/07/22 11:02 36.7 C 72 28 H 147/55 H 96 09/07/22 08:00 67 09/07/22 08:00 09/07/22 08:00 36.8 C 67 18 117/54 L 97 09/07/22 03:38 36.8 C 61 18 143/62 H 97 09/07/22 02:29 65 21 96 O2 Del Method O2 Flow Rate FiO2 09/07/22 13:47 2 09/07/22 13:02 2 09/07/22 12:02 2 09/07/22 11:32 2 09/07/22 11:17 2 09/07/22 11:16 2 09/07/22 11:02 2 09/07/22 08:00 09/07/22 08:00 Nasal Cannula 2 09/07/22 08:00 Room Air 09/07/22 03:38 Room Air 09/07/22 02:29 30 Laboratory Results 09/07/22 06:18 09/07/22 06:16 PG Care Time/CCT Total # of Minutes Spent Total Time Spent with Patient: Total time spent is greater than 50% in coordination of care (as documented) at patient's floor/unit and/or counseling patient: Coding Level of Care Code 30988 SUB INP/OBS CARE 3/50MIN Diagnoses Acute respiratory failure with hypoxia J96.01 Acute on chronic diastolic CHF (congestive heart failure) I50.33 CKD (chronic kidney disease) N18.9 Upper respiratory infection, viral J06.9 Anemia of chronic disease D63.8 HTN (hypertension) I10 Hypertension type: essential hypertension Aortic stenosis I35.0 Cardiac valve disease etiology: etiology unspecified PAF (paroxysmal atrial fibrillation) I48.0 (6) HTN (hypertension) Hypertension type: essential hypertension Qualified Code(s): I10 - Essential (primary) hypertension (7) Aortic stenosis Cardiac valve disease etiology: etiology unspecified Qualified Code(s): I35.0 - Nonrheumatic aortic (valve) stenosis
[2022-09-07] MEDS ORDERED: Nursing to Pharmacy Communication SCH (16:15)
[2022-09-07] MEDS: DICLOFENAC SOD 1% GEL 100 GM TUBE EXT PRN (17:46)
[2022-09-07] MEDS ORDERED: MoRPHine SULFATE 2 MG/ML CARP IV STA (19:30)
[2022-09-07] MEDS: FAMOTIDINE 20 MG TAB PO SCH (19:46)
[2022-09-07] MEDS: TERAZOSIN HCL 1 MG CAP PO SCH (19:46)
[2022-09-07 20:11] LABS: Hemoglobin 9.3 g/dl (12.0-16.0)
[2022-09-07] MEDS: BENZONATATE 100 MG CAPSULE PO PRN (20:41)
[2022-09-08] MEDS: DICLOFENAC SOD 1% GEL 100 GM TUBE EXT PRN ×2 (03:56→20:30)
[2022-09-08 07:26] LABS: Basophils # (auto) 0.06 K/uL (0-0.2); Basophils % (auto) 0.5 %; Eosinophils # (auto) 0.79 K/uL (0-0.50); Eosinophils % (auto) 5.9 %; Hematocrit (blood only) 26.3 % (37.0-47.0); Immature Granulocytes # (auto) 0.07 K/uL (0.01-0.20); Immature Granulocytes % (auto) 0.5 %; Lymphocytes # (auto) 1.11 K/uL (1.2-3.4); Lymphocytes % (auto) 8.4 %; Mean Corpuscular Hemoglobin 31.3 pg (25.0-34.0); Mean Corpuscular Hgb Conc 34.2 g/dL (32.0-36.0); Mean Corpuscular Volume 91.3 fL (80.0-100.0); Mean Platelet Volume 10.5 fL (9.4-12.4); Monocytes # (auto) 1.31 K/uL (0.11-0.59); Monocytes % (auto) 9.9 %; Neutrophils # (auto) 9.95 K/uL (1.40-6.50); Neutrophils % (auto) 74.8 %; Platelet Count 300 K/uL (130-400); RDW Coefficient of Variation 15.8 % (11.5-14.5); RDW Standard Deviation 51.9 fL (36.4-46.3); Red Blood Count 2.88 M/uL (4.20-5.40); White Blood Count 13.29 K/ul (4.8-10.8)
[2022-09-08 07:41] LABS: BUN Creatinine Ratio 17.8 (10-20); Calcium 8.2 mg/dl (8.6-10.3); Creatinine Clr Calc Pharmacy 8.7 ml/min; Est GFR (African American) 9.1 ml/min; Est GFR (Non-African American) 7.8 ml/min; Potassium 3.6 mmol/L (3.5-5.1)
[2022-09-08] MEDS: guaiFENesin 600 MG TABCR PO PRN ×2 (08:26→20:37)
[2022-09-08] MEDS: hydrALAZINE HCL 25 MG TAB PO SCH ×3 (08:26→20:28)
[2022-09-08] MEDS: POTASSIUM CHLORIDE 10 MEQ TABCR PO SCH (08:26)
[2022-09-08] MEDS: NIFEdipine EXTENDED REL 30 MG TABCR PO SCH ×3 (08:26→20:27)
[2022-09-08] MEDS: BUMETANIDE 2 MG in SYRINGE 0 ML IV SCH (08:27)
[2022-09-08] MEDS ORDERED: metOLazone 5 MG TABLET PO ONE (08:49)
[2022-09-08] MEDS: FUROSEMIDE 40 MG/4 ML VIAL IV SCH ×2 (11:42→17:34)
--- NOTE | 2022-09-08 12:00 | Hospitalist Progress Note ---
Date of Service September 08, 2022 Assessment & Plan (1) Acute respiratory failure with hypoxia: Plan: Due to combined effects of congestive heart failure and viral illness. Supplemental oxygen per nasal cannula to maintain saturation greater than 90%. Wean off as tolerated. (2) Acute on chronic diastolic CHF (congestive heart failure): Plan: Continue Bumex parenteral diuresis. Monitor intake and output. Repeat portable chest x-ray again tomorrow, September 09. Limited cardiac echo report noted. No new findings. Parenteral Bumex switched to high-dose parenteral Lasix today, September 08. Will administer another dose of metolazone also. (3) CKD (chronic kidney disease): Plan: Stage V. Monitor intake and output. Serial labs . Creatinine is trending upward as expected with diuresis (4) Upper respiratory infection, viral: Plan: Acute viral illness. Supportive care. (5) Anemia of chronic disease: Plan: Undoubtedly related to chronic kidney disease. No evidence of GI bleeding. St ool Hemoccult negative. Hemoglobin was down to 6.4 on September 07. She received 2 units of packed red blood cells and hemoglobin improved to 9.3. She feels better. Serial labs . Continue oral iron replacement therapy (6) HTN (hypertension): Plan: Hydralazine has been uptitrated to 3 times a day dosing. Continue nifedipine (7) Aortic stenosis: Plan: Moderate . She also has mitral valve disease. She states that she had rheumatic fever as a child. 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 Patient follows with Cardiology and has frequent echocardiograms to monitor for progression. Limited cardiac echo report noted. The aortic stenosis is moderate and hydralazine therapy should not affect the aortic valve pressure gradient (8) PAF (paroxysmal atrial fibrillation): Plan: Patient was previously on Eliquis anticoagulation but no longer. Continue current medication management Plan Hopeful discharge to home within the next several days. Possibly tomorrow, September 09. She may need home oxygen for a while Admission and Anticipated Discharge Date Admission Date: September 06, 2022 Subjective She looks and feels much better today. She is sitting at the side of the bed combing her hair. Intravenous Bumex switched to high-dose intravenous Lasix. We will also administer 1 dose of metolazone today. Creatinine has increased slightly to 4.9 with diuresis. Limited echo reveals normal ejection fraction with left ventricular hypertrophy. She has aortic and mitral valve disease consistent with her previous history of rheumatic fever. It appears she has rheumatic heart disease. She continues to require oxygen at 3 L/min. We will repeat chest x-ray tomorrow. She is anxious to go home tomorrow. She may need home oxygen for a while. Review of Systems Review of Systems: Constitutional-no fever or chills. [place] ENT-no blurred vision, no double vision, no epistaxis, no sore throat Respiratory-nonproductive cough. No wheezing. Some noticeable shortness of breath with exertion Cardiac-no palpitations, no chest pain, no syncope GI-no nausea, vomiting, diarrhea, melena, hematochezia -no urinary retention, no urinary incontinence, no dysuria, no hematuria Musculoskeletal-no joint pain, no muscle tenderness Skin-no bruising, no rashes, no pruritus Neuro-no isolated weakness, no paresthesia, no weakness Psych-flat affect Physical Exam Physical Exam: General-alert and oriented x3, no fevers, no chills HEENT-head atraumatic and normocephalic, pupils equal and reactive to light, extraocular muscles intact Neck-no lymphadenopathy or thyromegaly, trachea midline Chest-bibasilar inspiratory rales. Scattered rhonchi. No wheezing Cardiac-irregular rhythm, controlled rate, normal S1 and S2 Abdomen-normal bowel sounds, nontender, no hepatosplenomegaly Extremities-no cyanosis, clubbing, or edema Neuro-cranial nerves II through XII intact, motor and sensory function within normal limits, strength symmetrical , no focal deficits Psych-flat affect Results & Data Results & Data Vital Signs (Past 12 Hours) Vital Signs Temp Pulse Pulse Resp BP Pulse Ox O2 Del Method 09/08/22 09:21 59 L 09/08/22 09:21 Nasal Cannula 09/08/22 08:21 36.7 C 84 18 123/58 L 94 Nasal Cannula 09/08/22 03:50 37.0 C 65 20 124/48 L 95 Nasal Cannula O2 Flow Rate 09/08/22 09:21 09/08/22 09:21 3 09/08/22 08:21 3 09/08/22 03:50 3.5 Laboratory Results 09/08/22 06:42 09/08/22 06:42 PG Care Time/CCT Total # of Minutes Spent Total Time Spent with Patient: Total time spent is greater than 50% in coordination of care (as documented) at patient's floor/unit and/or counseling patient: Coding Level of Care Code 99238 SUB INP/OBS CARE 3/50MIN Diagnoses Acute respiratory failure with hypoxia J96.01 Acute on chronic diastolic CHF (congestive heart failure) I50.33 CKD (chronic kidney disease) N18.9 Upper respiratory infection, viral J06.9 Anemia of chronic disease D63.8 HTN (hypertension) I10 Hypertension type: essential hypertension Aortic stenosis I35.0 Cardiac valve disease etiology: etiology unspecified PAF (paroxysmal atrial fibrillation) I48.0 (6) HTN (hypertension) Hypertension type: essential hypertension Qualified Code(s): I10 - Essential (primary) hypertension (7) Aortic stenosis Cardiac valve disease etiology: etiology unspecified Qualified Code(s): I35.0 - Nonrheumatic aortic (valve) stenosis
[2022-09-08] MEDS: FAMOTIDINE 20 MG TAB PO SCH (20:28)
[2022-09-08] MEDS: TERAZOSIN HCL 1 MG CAP PO SCH (20:28)
[2022-09-08] MEDS ORDERED: MELATONIN 3 MG TAB PO PRN (20:43)
[2022-09-08] MEDS: BENZONATATE 100 MG CAPSULE PO PRN (20:58)
[2022-09-09] MEDS: NIFEdipine EXTENDED REL 30 MG TABCR PO SCH ×2 (07:39→12:26)
[2022-09-09] MEDS: hydrALAZINE HCL 25 MG TAB PO SCH ×2 (07:39→12:26)
[2022-09-09] MEDS: guaiFENesin 600 MG TABCR PO PRN (07:39)
[2022-09-09] MEDS: POTASSIUM CHLORIDE 10 MEQ TABCR PO SCH (07:40)
[2022-09-09 07:44] LABS: Basophils # (auto) 0.06 K/uL (0-0.2); Basophils % (auto) 0.7 %; Eosinophils # (auto) 0.95 K/uL (0-0.50); Eosinophils % (auto) 10.4 %; Hematocrit (blood only) 26.7 % (37.0-47.0); Hemoglobin 9.1 g/dl (12.0-16.0); Immature Granulocytes # (auto) 0.03 K/uL (0.01-0.20); Immature Granulocytes % (auto) 0.3 %; Lymphocytes # (auto) 1.01 K/uL (1.2-3.4); Lymphocytes % (auto) 11.1 %; Mean Corpuscular Hemoglobin 30.8 pg (25.0-34.0); Mean Corpuscular Hgb Conc 34.1 g/dL (32.0-36.0); Mean Corpuscular Volume 90.5 fL (80.0-100.0); Mean Platelet Volume 10.3 fL (9.4-12.4); Monocytes # (auto) 1.24 K/uL (0.11-0.59); Monocytes % (auto) 13.6 %; Neutrophils # (auto) 5.84 K/uL (1.40-6.50); Neutrophils % (auto) 63.9 %; Platelet Count 319 K/uL (130-400); RDW Coefficient of Variation 15.3 % (11.5-14.5); RDW Standard Deviation 50.7 fL (36.4-46.3); Red Blood Count 2.95 M/uL (4.20-5.40); White Blood Count 9.13 K/ul (4.8-10.8)
[2022-09-09 08:03] LABS: BUN Creatinine Ratio 19.7 (10-20); Calcium 8.5 mg/dl (8.6-10.3); Creatinine Clr Calc Pharmacy 8.9 ml/min; Est GFR (African American) 9.3 ml/min; Est GFR (Non-African American) 8.1 ml/min; Potassium 3.7 mmol/L (3.5-5.1)
[2022-09-09] MEDS: FUROSEMIDE 40 MG/4 ML VIAL IV SCH (10:14)
--- NOTE | 2022-09-09 11:12 | XRay Report ---
XR chest 1V portable CLINICAL HISTORY: CHF TECHNIQUE: Single frontal radiograph of the chest was obtained. Comparison: Comparison is made to chest radiograph 09/07/2022 FINDINGS: No lines and tubes are seen. Cardiomegaly is noted. The aortic arch is calcified. Right lower lung ai rspace opacity has increased in conspicuity from the prior exam. Prominence of the pulmonary vasculat ure is again seen. Small bilateral pleural effusions are seen. IMPRESSION: 1. Cardiomegaly and mild pulmonary edema, unchanged. 2. Right lower lung airspace opacity. which may represent atelectasis, pneumonia, and/or aspiration. 3. Small bilateral pleural effusions, stable. ACT 112: Negative or not required by law. Electronically signed by: Barrington Wells M.D. 09/09/2022 11:10 AM
--- NOTE | 2022-09-09 11:32 | Discharge Summary ---
Date of Service September 09, 2022 Admission HPI Per Admitting Provider Bety Chaidez is a 77yo female with history of CKD-V, anemia of chronic disease, HTN, PAF, moderate aortic stenosis presenting with shortness of breath. Patient had shortness of breath that developed earlier today 09/05/22 with progressive worsening throughout the day. She has had a cough productive for clear phlegm as well. She denies chest pain, palpitations, fever or chills. No abdominal pain. She reports one episode of vomiting prior to arrival. Also reports decreased urine output and increased bilateral LE edema. No sick contacts or recent travel. Patient follows with Nephrology for her CKD. She recently had her Bumex dose increased. She reports no improvement in UOP since this change. Patient hypoxic at 80% on room air by EMS. She was placed on supplemental O2 and was placed on BiPAP in the ER. Respiratory rate improving now with adequate oxygenation. Principal Diagnosis Acute on chronic diastolic CHF, viral UTI, acute hypoxic respiratory failure, acute on chronic anemia Discharge Exam General-alert and oriented x3, no fevers, no chills HEENT-head atraumatic and normocephalic, pupils equal and reactive to light, extraocular muscles intact Neck-no lymphadenopathy or thyromegaly, trachea midline Chest-bibasilar inspiratory rales. Scattered rhonchi. No wheezing Cardiac-irregular rhythm, controlled rate, normal S1 and S2 Abdomen-normal bowel sounds, nontender, no hepatosplenomegaly Extremities-no cyanosis, clubbing, or edema Neuro-cranial nerves II through XII intact, motor and sensory function within normal limits, strength symmetrical , no focal deficits Psych-flat affect Discharge Data Allergies Allergy/AdvReac Type Severity Reaction Status Date / Time hydrochlorothiazide AdvReac Severe hyponatremi Verified 09/05/22 21:58 a Consultations 09/06/22 00:53 ED Decision to Admit Stat Hospital Course (1) Acute respiratory failure with hypoxia: Due to combined effects of congestive heart failure and viral illness. Supplemental oxygen per nasal cannula was administered during her hospitalization to maintain saturation greater than 90%. This has been weaned off. She is now on room air (2) Acute on chronic diastolic CHF (congestive heart failure): Treated while hospitalized with parenteral Bumex and then parenteral Lasix diuresis. She received several doses of metolazone. Most recent chest x-ray done today, September 09, is stable. She has chronic right-sided findings. We will continue her usual diuretic therapy at discharge. Limited cardiac echo report noted. No new findings. (3) CKD (chronic kidney disease): Stage V. Monitor intake and output. Serial labs . Creatinine is elevated but stable (4) Upper respiratory infection, viral: Acute viral illness. Supportive care. (5) Anemia of chronic disease: Undoubtedly related to chronic kidney disease. No evidence of GI bleeding. Stool Hemoccult negative. Hemoglobin was down to 6.4 on September 07. She received 2 units of packed red blood cells and hemoglobin improved to 9.3. She feels better. Serial labs . Continue oral iron replacement therapy (6) HTN (hypertension): Hydralazine has been uptitrated to 3 times a day dosing. Continue nifedipine (7) Aortic stenosis: Moderate . She also has mitral valve disease. She states that she had rheumatic fever as a child. 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 Patient follows with Cardiology and has frequent echocardiograms to monitor for progression. Limited cardiac echo report noted. The aortic stenosis is moderate and hydralazine therapy should not affect the aortic valve pressure gradient (8) PAF (paroxysmal atrial fibrillation): Patient was previously on Eliquis anticoagulation but no longer. Continue current medication management Plan Home today, September 09 Total Time Total Time Spent Total Time Spent (In Minutes): 45-minute Discharge Plan Discharge Items Patient Disposition: Home - Self-Care Reason For Visit: ACUTE HYPOXIC RESPIRATORY FAILURE Discharge Diagnosis: Acute on chronic diastolic CHF, acute hypoxic respiratory failure, viral lower respiratory infection, acute on chronic anemia Activity: Resume your previous activity Non-emergency contact: Primary Care Provider Call non-emergency contact if: your symptoms worsen Follow-up/Referrals: PCP,NO [Primary Care Provider] - Diet: Regular and Heart Healthy Addtl Attending Provider Instructions: All medications remain the same. Hydralazine has been increased to 3 times daily however Pending Studies at Discharge: No Stand-Alone Forms: My [employer]app[employer], Smoking Cessation Medications and DC Order Prescriptions: New hydralazine 25 mg Tablet 75 mg PO TID Qty: 100 0RF Continued potassium chloride [Klor-Con M20] 20 mEq tablet,ER particles/crystals 10 meq PO DAILY guaifenesin [Mucinex] 600 mg tablet extended release 12hr 600 mg PO Q12H PRN (Reason: Congestion) benzonatate 100 mg capsule 100 mg PO BID PRN (Reason: Cough) bumetanide 2 mg tablet 2 mg PO .COMPLEX Qty: 270 3RF Rx Instructions: 4 mg (2 tablets) QAM and 2 mg (1 tablet) Q afternoon (~3 PM) famotidine 40 mg tablet 40 mg PO BID ferrous sulfate 325 mg (65 mg iron) tablet 325 mg PO BID terazosin 1 mg Capsule 2 mg PO HS Qty: 30 0RF nifedipine 60 mg tablet extended release 24hr 60 mg PO TID Discontinued hydralazine 25 mg Tablet 75 mg PO BID Qty: 60 0RF Discharge Orders: Discharge Order (Routine); Ordered 09/09/22 Ordered By: Hi Genao Admission Data Admit Date/Time: 09/06/22 01:19 Attending Provider: Hi Genao Admit Provider: Chanda Bonds Primary Care Provider: PCP,NO Other Providers: Chanda Bonds Coding Level of Care Code 74538 INP/OBS DISCH >30 MIN Diagnoses Acute respiratory failure with hypoxia J96.01 Acute on chronic diastolic CHF (congestive heart failure) I50.33 CKD (chronic kidney disease) N18.9 Upper respiratory infection, viral J06.9 Anemia of chronic disease D63.8 HTN (hypertension) I10 Hypertension type: essential hypertension Aortic stenosis I35.0 Cardiac valve disease etiology: etiology unspecified PAF (paroxysmal atrial fibrillation) I48.0
--- NOTE | 2022-09-09 11:39 | Discharge Summary ---
Date of Service September 09, 2022 Admission HPI Per Admitting Provider Bety Chaidez is a 77yo female with history of CKD-V, anemia of chronic disease, HTN, PAF, moderate aortic stenosis presenting with shortness of breath. Patient had shortness of breath that developed earlier today 09/05/22 with progressive worsening throughout the day. She has had a cough productive for clear phlegm as well. She denies chest pain, palpitations, fever or chills. No abdominal pain. She reports one episode of vomiting prior to arrival. Also reports decreased urine output and increased bilateral LE edema. No sick contacts or recent travel. Patient follows with Nephrology for her CKD. She recently had her Bumex dose increased. She reports no improvement in UOP since this change. Patient hypoxic at 80% on room air by EMS. She was placed on supplemental O2 and was placed on BiPAP in the ER. Respiratory rate improving now with adequate oxygenation. Principal Diagnosis Acute on chronic diastolic CHF, viral respiratory infection, acute hypoxic respiratory failure, acute on chronic anemia Discharge Data Allergies Allergy/AdvReac Type Severity Reaction Status Date / Time hydrochlorothiazide AdvReac Severe hyponatremi Verified 09/05/22 21:58 a Consultations 09/06/22 00:53 ED Decision to Admit Stat Total Time Total Time Spent Total Time Spent (In Minutes): 45 minutes Discharge Plan Discharge Items Patient Disposition: Home - Self-Care Reason For Visit: ACUTE HYPOXIC RESPIRATORY FAILURE Discharge Diagnosis: Acute on chronic diastolic CHF, acute hypoxic respiratory failure, viral lower respiratory infection, acute on chronic anemia Activity: Resume your previous activity Non-emergency contact: Primary Care Provider Call non-emergency contact if: your symptoms worsen Follow-up/Referrals: PCP,NO [Primary Care Provider] - Diet: Regular and Heart Healthy Addtl Attending Provider Instructions: All medications remain the same. Hydralazine has been increased to 3 times daily however Pending Studies at Discharge: No Stand-Alone Forms: [employer], Smoking Cessation Medications and DC Order Prescriptions: New hydralazine 25 mg Tablet 75 mg PO TID Qty: 100 0RF Continued potassium chloride [Klor-Con M20] 20 mEq tablet,ER particles/crystals 10 meq PO DAILY guaifenesin [Mucinex] 600 mg tablet extended release 12hr 600 mg PO Q12H PRN (Reason: Congestion) benzonatate 100 mg capsule 100 mg PO BID PRN (Reason: Cough) bumetanide 2 mg tablet 2 mg PO .COMPLEX Qty: 270 3RF Rx Instructions: 4 mg (2 tablets) QAM and 2 mg (1 tablet) Q afternoon (~3 PM) famotidine 40 mg tablet 40 mg PO BID ferrous sulfate 325 mg (65 mg iron) tablet 325 mg PO BID terazosin 1 mg Capsule 2 mg PO HS Qty: 30 0RF nifedipine 60 mg tablet extended release 24hr 60 mg PO TID Discontinued hydralazine 25 mg Tablet 75 mg PO BID Qty: 60 0RF Discharge Orders: Discharge Order (Routine); Ordered 09/09/22 Ordered By: Hi Genao Discharge Order- CHF (Routine); Ordered 09/09/22 Ordered By: Hi Genao Admission Data Admit Date/Time: 09/06/22 01:19 Attending Provider: Hi Genao Admit Provider: Chanda Bonds Primary Care Provider: PCP,NO Other Providers: Chanda Bonds Coding Level of Care Code 11557 INP/OBS DISCH >30 MIN Diagnoses
== END 2022-09-09 13:01 | disposition home or self-care (01) | DRG 291 ==
LOC: ED 20:52 → SUATTDRO 09-06 01:19 → 2S 09-06 01:19